=== PATIENT | male | born 1955 | race African-American/Black ===

== ENCOUNTER 2017-06-25 15:21 | Inpatient (IN) | payer MEDICAID ==
[~2017-06-25] VITALS: Ht 190.5 cm; Wt 107.6 kg
[~2017-06-25 15:21] MED LIST: ESCI5SOL PO; ETD300C PO; INSU100C SQ; PALI117D IM
--- OUTSIDE RECORDS SUMMARY | 2017-06-25 15:28 | XMS REPORT | Continuity of Care Document ---
Author Author [facility] Address Unknown Phone Unavailable Allergies Active Description Code Type Severity Reaction Onset Reported/Identified Relationship to Patient Clinical Status Yes Neurontin Drug Allergy 06/12/2011 Yes Neurontin Drug Allergy N/A N/A 06/12/2011 Medications Problems Date Dx Coded Attending Type Code Diagnosis Diagnosed By 12/27/2009 ASHA VALLES MD NODX NO DIAGNOSIS 12/27/2009 NODX NO DIAGNOSIS 12/27/2009 NODX NO DIAGNOSIS 12/27/2009 NODX NO DIAGNOSIS 12/27/2009 NODX NO DIAGNOSIS 12/27/2009 ALEXIS DICKEY DDS NODX NO DIAGNOSIS 12/27/2009 NODX NO DIAGNOSIS 12/28/2009 ASHA VALLES MD 250.02 DIABETES MELLITUS POORLY CONTROLLED 12/28/2009 ASHA VALLES MD 278.00 OBESITY 12/28/2009 250.02 DIABETES MELLITUS POORLY CONTROLLED 12/28/2009 278.00 OBESITY 12/28/2009 250.02 DIABETES MELLITUS POORLY CONTROLLED 12/28/2009 278.00 OBESITY 12/28/2009 250.02 DIABETES MELLITUS POORLY CONTROLLED 12/28/2009 278.00 OBESITY 12/28/2009 250.02 DIABETES MELLITUS POORLY CONTROLLED 12/28/2009 278.00 OBESITY 12/28/2009 ALEXIS DICKEY DDS 250.02 DIABETES MELLITUS POORLY CONTROLLED 12/28/2009 ALEXIS DICKEY DDS 278.00 OBESITY 12/28/2009 250.02 DIABETES MELLITUS POORLY CONTROLLED 12/28/2009 278.00 OBESITY 02/23/2010 ASHA VALLES MD 295.60 P SCHIZO RESIDUAL UNSPECIFIED 02/23/2010 295.60 P SCHIZO RESIDUAL UNSPECIFIED 02/23/2010 295.60 P SCHIZO RESIDUAL UNSPECIFIED 02/23/2010 295.60 P SCHIZO RESIDUAL UNSPECIFIED 02/23/2010 295.60 P SCHIZO RESIDUAL UNSPECIFIED 02/23/2010 ALEXIS DICKEY DDS 295.60 P SCHIZO RESIDUAL UNSPECIFIED 02/23/2010 295.60 P SCHIZO RESIDUAL UNSPECIFIED 05/12/2011 ASHA VALLES MD 357.2 POLYNEUROPATHY IN DIABETES 05/12/2011 357.2 POLYNEUROPATHY IN DIABETES 05/12/2011 357.2 POLYNEUROPATHY IN DIABETES 05/12/2011 357.2 POLYNEUROPATHY IN DIABETES 05/12/2011 357.2 POLYNEUROPATHY IN DIABETES 05/12/2011 ALEXIS DICKEY DDS 357.2 POLYNEUROPATHY IN DIABETES 05/12/2011 357.2 POLYNEUROPATHY IN DIABETES 06/12/2011 ASHA VALLES MD 716.90 UNSPECIFIED ARTHROPATHY SITE UNSPECIFIED 06/12/2011 716.90 UNSPECIFIED ARTHROPATHY SITE UNSPECIFIED 06/12/2011 716.90 UNSPECIFIED ARTHROPATHY SITE UNSPECIFIED 06/12/2011 716.90 UNSPECIFIED ARTHROPATHY SITE UNSPECIFIED 06/12/2011 716.90 UNSPECIFIED ARTHROPATHY SITE UNSPECIFIED 06/12/2011 ALEXIS DICKEY DDS 716.90 UNSPECIFIED ARTHROPATHY SITE UNSPECIFIED 06/12/2011 716.90 UNSPECIFIED ARTHROPATHY SITE UNSPECIFIED 04/01/2012 ASHA VALLES MD 726.10 DISORDERS OF BURSAE AND TENDONS IN SHOULDER REGION UNSPECIFIED 04/01/2012 726.10 DISORDERS OF BURSAE AND TENDONS IN SHOULDER REGION UNSPECIFIED 04/01/2012 726.10 DISORDERS OF BURSAE AND TENDONS IN SHOULDER REGION UNSPECIFIED 04/01/2012 726.10 DISORDERS OF BURSAE AND TENDONS IN SHOULDER REGION UNSPECIFIED 04/01/2012 726.10 DISORDERS OF BURSAE AND TENDONS IN SHOULDER REGION UNSPECIFIED 04/01/2012 ALEXIS DICKEY DDS 726.10 DISORDERS OF BURSAE AND TENDONS IN SHOULDER REGION UNSPECIFIED 04/01/2012 726.10 DISORDERS OF BURSAE AND TENDONS IN SHOULDER REGION UNSPECIFIED 10/21/2012 ASHA VALLES MD 250.00 DIABETES II CONTROLLED (UNCOMPLICATED) 10/21/2012 ASHA VALLES MD 295.10 P SCHIZO DISORG UNSPECIFIED 10/21/2012 ASHA VALLES MD 300.00 MN MEN DIS NOS 10/21/2012 ASHA VALLES MD 366.10 cataracts unspecified, right, left or both 10/21/2012 ASHA VALLES MD 729.5 PAIN IN LIMB 10/21/2012 250.00 DIABETES II CONTROLLED (UNCOMPLICATED) 10/21/2012 295.10 P SCHIZO DISORG UNSPECIFIED 10/21/2012 300.00 MN MEN DIS NOS 10/21/2012 366.10 cataracts unspecified, right, left or both 10/21/2012 729.5 PAIN IN LIMB 10/21/2012 250.00 DIABETES II CONTROLLED (UNCOMPLICATED) 10/21/2012 295.10 P SCHIZO DISORG UNSPECIFIED 10/21/2012 300.00 MN MEN DIS NOS 10/21/2012 366.10 cataracts unspecified, right, left or both 10/21/2012 729.5 PAIN IN LIMB 10/21/2012 250.00 DIABETES II CONTROLLED (UNCOMPLICATED) 10/21/2012 295.10 P SCHIZO DISORG UNSPECIFIED 10/21/2012 300.00 MN MEN DIS NOS 10/21/2012 366.10 cataracts unspecified, right, left or both 10/21/2012 729.5 PAIN IN LIMB 10/21/2012 250.00 DIABETES II CONTROLLED (UNCOMPLICATED) 10/21/2012 295.10 P SCHIZO DISORG UNSPECIFIED 10/21/2012 300.00 MN MEN DIS NOS 10/21/2012 366.10 cataracts unspecified, right, left or both 10/21/2012 729.5 PAIN IN LIMB 10/21/2012 WHITE DDS, ALEXIS J 250.00 DIABETES II CONTROLLED (UNCOMPLICATED) 10/21/2012 WHITE DDS, ALEXIS J 295.10 P SCHIZO DISORG UNSPECIFIED 10/21/2012 WHITE DDS, ALEXIS J 300.00 MN MEN DIS NOS 10/21/2012 WHITE DDS, ALEXIS J 366.10 cataracts unspecified, right, left or both 10/21/2012 WHITE DDS, ALEXIS J 729.5 PAIN IN LIMB 12/07/2012 V67.9 UNSPECIFIED FOLLOW-UP EXAMINATION 12/07/2012 V67.9 UNSPECIFIED FOLLOW-UP EXAMINATION 12/07/2012 V67.9 UNSPECIFIED FOLLOW-UP EXAMINATION 12/07/2012 WHITE DDS, ALEXIS J V67.9 UNSPECIFIED FOLLOW-UP EXAMINATION 05/24/2013 272.4 OTHER AND UNSPECIFIED HYPERLIPIDEMIA 05/24/2013 V58.69 LONG-TERM (CURRENT) USE OF OTHER MEDICATIONS 05/24/2013 WHITE DDS, ALEXIS J 272.4 OTHER AND UNSPECIFIED HYPERLIPIDEMIA 05/24/2013 ALEXIS DICKEY DDS V58.69 LONG-TERM (CURRENT) USE OF OTHER MEDICATIONS Procedures Code Description [place] [address] A1C (IN-HOUSE) 51862 MICRO ALBUMIN-IN HOUSE 08/23/2012 ArieDarin Fernandez 10/22/2012 86571 ROUTINE VENIPUNCTURE 11/22/2012 61622 MICRO ALBUMIN-IN HOUSE 11/22/2012 14430 A1C (IN-HOUSE) 12836 CBC 11/22/2012 09661 CMP 11/22/2012 75463 LIPID PANEL 11/22 [id number] GFR CALC (RESULT ONLY) 11/22/2012 19154 PSA TOTAL 2012 74338 GLUCOSE FINGER STICK 02/17/2013 25157 A1C (IN-HOUSE) 88058 CMP 05/24/2013 [id number] GFR CALC (RESULT ONLY) 05/24/2013 86788 TSH 05/24/2013 Results Encounters ACCT No. Visit Date/Time Discharge Status Pt. Type Provider Facility Loc./Unit Complaint [id number] 06/29/2013 11:50:00 06/29/2013 23: 59:59 CLS Outpatient ALEXIS DICKEY DDS [id number] 12/07/2012 08:59:00 12/07/2012 23: 59:59 CLS Outpatient [id number] 11/22/2012 10:05:00 11/22/2012 23: 59:59 CLS Outpatient [id number] 10/21/2012 09:29:00 10/21/2012 23: 59:59 CLS Outpatient REENA PINEDO, ASHA [id number] 08/23/2012 09:22:00 08/23/2012 23: 59:59 CLS Outpatient [id number] 05/24/2013 11:00:00 Document Registration [id number] 02/17/2013 10:52:00 Document Registration
[2017-06-25 17:05] LABS: BASOPHILS % (AUTO) 0 % (0-10); EOSINOPHILS % (AUTO) 0 % (0-10); LYMPHOCYTES # (AUTO) 1.4 X 10^3 (1.0-4.0); LYMPHOCYTES % (AUTO) 10 % (12-44); MEAN CORPUSCULAR HEMOGLOBIN 29 PG (25-34); MEAN CORPUSCULAR HGB CONC 34 G/DL (32-36); MEAN CORPUSCULAR VOLUME 85 FL (80-99); MEAN PLATELET VOLUME 10.2 FL (7.4-10.4); MONOCYTES % (AUTO) 7 % (0-12); NEUTROPHILS # (AUTO) 11.2 X 10^3 (1.8-7.8); NEUTROPHILS % (AUTO) 83 % (42-75); PLATELET COUNT 180 10^3/uL (130-400); RED BLOOD COUNT 5.07 10^6/uL (4.35-5.85); RED CELL DISTRIBUTION WIDTH 13.3 % (10.0-14.5); WHITE BLOOD COUNT 13.6 10^3/uL (4.3-11.0)
[2017-06-25 17:14] LABS: INR 1.1 (0.8-1.4); PROTHROMBIN TIME PATIENT 14.1 SEC (12.2-14.7)
[2017-06-25 17:26] LABS: ALANINE AMINOTRANSFERASE 8 U/L (0-55); ALBUMIN 3.9 GM/DL (3.2-4.5); ALCOHOL < 10 MG/DL (<10); AMYLASE 46 U/L (25-125); ANION GAP 13 MMOL/L (5-14); ASPARTATE AMINO TRANSFERASE 16 U/L (5-34); BLOOD UREA NITROGEN 11 MG/DL (7-18); BUN/CREATININE RATIO 13; CARBON DIOXIDE 24 MMOL/L (21-32); CHLORIDE 95 MMOL/L (98-107); CREATININE SERUM 0.82 MG/DL (0.60-1.30); GFR ESTIMATED > 60; GLUCOSE 171 MG/DL (70-105); LIPASE 11 U/L (8-78); MAGNESIUM 1.5 MG/DL (1.8-2.4); POTASSIUM 3.1 MMOL/L (3.6-5.0); SODIUM 132 MMOL/L (135-145); TOTAL PROTEIN 8.3 GM/DL (6.4-8.2)
[2017-06-25 17:28] LABS: BILIRUBIN,URINE NEGATIVE (NEGATIVE); KETONES,URINE NEGATIVE (NEGATIVE); LEUKOCYTE ESTERASE ,URINE NEGATIVE (NEGATIVE); NITRITE,URINE NEGATIVE (NEGATIVE); PH,URINE 6.5 (5-9); PROTEIN,URINE 3+ (NEGATIVE); UROBILINOGEN,URINE 1 MG/DL (NORMAL)
--- NOTE | 2017-06-25 17:31 | Diagnostic Imaging Report ---
PROCEDURE: CT head without contrast. TECHNIQUE: Multiple contiguous axial images were obtained through the brain without the use of intravenous contrast. INDICATION: Confusion. Patient is unable to follow instructions. FINDINGS: There is moderate motion artifact. Study was repeated. The ventricles and cortical gyral pattern appear normal. There is no evidence of intracranial hemorrhage. No shift of midline or mass effect. Basal cisterns are clear. CP angles appear normal. Mastoid air cells and paranasal sinuses show fluid within the left mastoid air cells as well as within the left maxillary sinus which is opacified and a portion of the left ethmoid sinus. Right mastoid air cells and right maxillary sinus and ethmoid sinus are clear. Frontal sinuses are clear. IMPRESSION: 1. No acute intracranial abnormalities. 2. There is fluid within the left mastoid air cells and left middle ear as well as opacification of the left maxillary sinus and left ethmoid sinus. Dictated by: Dictated on workstation # [id number]
[2017-06-25 17:40] LABS: WBC,URINE 0-2 /HPF
--- NOTE | 2017-06-25 17:49 | Diagnostic Imaging Report ---
INDICATION: Dizziness. Shortness of breath. FINDINGS: There is mild hyperaeration with flattening of diaphragm. Prominent interstitial markings noted bilaterally. There are no consolidated infiltrates. The heart is not enlarged. No evidence of pulmonary edema. No pneumothorax or pleural effusions. IMPRESSION: Mild obstructive interstitial lung disease with no acute changes noted. No previous studies for comparison. Dictated by: Dictated on workstation # [id number]
[2017-06-25] MEDS ORDERED: IOHEXOL 350 MG/ML 150 ML (OMNIPAQUE 350) VIAL IV ONE (18:00)
[2017-06-25] MEDS ORDERED: NS 100 ML (IVPB) BAG IV ONE (18:00)
[2017-06-25] MEDS ORDERED: NS IV 1000 ML 1,000 ML IV ONE (18:24)
[2017-06-25] MEDS ORDERED: NS W/KCL 20 MEQ/L 1,000 ML IV SCH (18:30)
[2017-06-25] MEDS ORDERED: MAGNESIUM OXIDE (MAG-OX)400 MG TAB PO ONE (18:30)
[2017-06-25] MEDS ORDERED: KCL 10 MEQ TAB (MICRO K) PO ONE (18:30)
[2017-06-25] MEDS ORDERED: MAGNESIUM 1 GM/100 ML IVPB 100 ML IV ONE (18:30)
[2017-06-25] MEDS ORDERED: ACETAMINOPHEN 500 MG TAB (TYLENOL) PO ONE (18:30)
[2017-06-25] MEDS ORDERED: diphenhydrAMINE 50 MG/ML INJ (BENADRYL) IVP ONE (19:30)
--- NOTE | 2017-06-25 19:41 | ED General ---
General Chief Complaint: Dizziness/Syncope Stated Complaint: HEADACHE,BILAT LEG PAIN Nursing Triage Note: AMB TO ED WITH FAMILY REPORT FOR 2 MONTHS HE HAS BEEN DIZZY AND CONCERN THAT HE HAS BAD TEETH. HAS APPOINTMENT WITH [facility] ON JUL 02 Nursing Sepsis Screen: Possible Sepsis Risk Source of Information: Patient (VERY POOR HISTORIAN AND UNABLE TO GIVE ANY RELEVANT PAST MEDICAL HISTORY, AND VERY POOR HISTORIAN ABOUT CURRENT COMPLAINTS) , Family ([id number]-FBH AND NIECE ARE VERY LIMITED HISTORIANS, AND CAN GIVE NO RELEVANT INFORMATION OR HISTORY ), Old Records (ALL PMH IS FROM OLD RECORDS) History of Present Illness Time Seen by Provider: 16:25 Initial Comments PT ARRIVES VIA POV FROM HOME--LIVES WITH MULTIPLE FAMILY MEMBERS PT C/O BACK PAIN AND LOWER ABDOMINAL PAIN--?? FOR SEVERAL WEEKS ??? C/O DIZZINESS AND HEADACHE--?? FOR A COUPLE OF MONTHS ?? DENIES ANY PROBLEMS URINATING. NO OTHER INFORMATION IS OBTAINABLE PT HAS TEMP OF 101.6 AND PT AND CARETAKERS UNAWARE THAT PT HAD BEEN RUNNING FEVER STATES HE HAS NOT HAD ANY NAUSEA/VOMITING/DIARRHEA AND HAS BEEN EATING AND DRINKING WELL SYMPTOMS ARE NO DIFFERENT TODAY AND HAVE NOT SOUGHT CARE FOR THIS PROBLEM UNTIL TODAY PT AND FAMILY CANNOT GIVE ANY PAST MEDICAL HISTORY--CAN ONLY STATE HE GETS SOME SORT OF SHOT EVERY 3 MONTHS AT [facility], AND HAVE NO IDEA WHAT "MENTAL HEALTH PROBLEMS" HE HAS, OR EVEN WHAT MENTAL HEALTH FACILITY THAT HE GOES TO THEY STATE PT DOES NOT TAKE ANY OTHER MEDICATIONS THEY DO STATE PT HAS AN APPOINTMENT AT [facility] 07/02/17 Allergies and Home Medications Allergies Coded Allergies: No Known Drug Allergies (Unverified , 02/07/11) Home Medications Escitalopram Oxalate 5 Mg/5 Ml Solution, 1 TSP PO DAILY, (Reported) Etodolac 300 Mg Capsule, 1 CAP PO BID, #20 Ref 0 Prescribed by: SATYA DANIELS on 02/07/11 1417 Insulin Lispro 100 Unit/1 Ml Cartridge, 100 UNIT SQ UD, (Reported) Paliperidone Palmitate 117 Mg/0.75 Ml Disp.syrin, 117 MG IM monthly, (Reported) Constitutional: see HPI, dizziness, fever EENTM: other (DRAINAGE FROM LEFT EAR FOR MANY MONTHS) Respiratory: cough, No short of breath Gastrointestinal: see HPI, abdominal pain Genitourinary: no symptoms reported Musculoskeletal: see HPI, back pain Past Vzngcln-Qzqfll-Ehpbmr Hx Patient Social History Alcohol Use: Denies Use Recreational Drug Use: Yes (PER NIECE, PT HAS EXTENSIVE DRUG USE HISTORY, INCLUDING HEROIN AND "ICE"-LIKELY IV DRUG USE) Smoking Status: Current Everyday Smoker (1 /2 PPD) Type Used: Cigarettes Recent Foreign Travel: No Contact w/Someone Who Travel: No Recent Infectious Disease Expo: No Surgeries History of Surgeries: No (UNKNOWN) Respiratory History of Respiratory Disorde: No Cardiovascular History of Cardiac Disorders: No Neurological History of Neurological Disord: Yes (? MENTALLY CHALLENGED ?--FROM DRUG USE AND OR/INJURY PER FAMILY) Genitourinary History of Genitourinary Disor: No Gastrointestinal History of Gastrointestinal Di: No Musculoskeletal History of Musculoskeletal Dis: No Endocrine History of Endocrine Disorders: Yes (PER SINGLE OLD RECORD FROM 2010, PT AND FAMILY UNAWARE OF THIS AND PT DOES NOT CHECK BLOOD SUGAR, FOLLOW A DIET OR TAKE DIABETIC MEDICATION) Endocrine Disorders: Diabetes, Non-Insulin dep HEENT History of HEENT Disorders: Yes HEENT Disorders: Chronic Ear Infection Cancer History of Cancer: No Psychosocial History of Psychiatric Problem: Yes (UNKNOWN "MENTAL HEALTH PROBLEM"; ? MENTALLY CHALLENGED ?--FROM DRUG USE AND/OR INJURY, PER FAMILY. ) Integumentary History of Skin or Integumenta: No Blood Transfusions History of Blood Disorders: No Physical Exam Vital Signs Vital Sign - Last 12Hours 06/25/17 16:00 Temp 101.6 Pulse 105 Resp 18 B/P (MAP) 138/68 Pulse Ox 92 O2 Delivery Room Air Capillary Refill : Less Than 3 Seconds General Appearance: No Apparent Distress, WD/WN, Other (MALODOROUS, UNKEMPT. APPEARS TO BE MENTALLY CHALLENGED. CONSTANT TONGUE MOVEMENTS. AND CONSTANT BODY MOVEMENTS--RESTLESS, CANNOT SIT OR LAY STILL) HEENT: PERRL/EOMI, Other (MULTIPLE MISSING TEETH AND REMAINING TEETH WITH EXTENSIVE DECAY. RIGHT TM SCLEROTIC, LEFT EAC WITH PROFUSE PURULENT DRAINAGE-- UNABLE TO VISUALIZE TM DUE TO DRAINAGE. MILD POST-AURICULAR TENDERNSS, BUT NO SWELLING OR OBVIOUS ERYTHEMA TO AREA, OR TO PINNA OF EAR. MILD TENDERNESS ON TRACTION OF LEFT PINNA. ) Neck: Full Range of Motion, Normal Inspection, Non Tender, Supple Respiratory: Normal Breath Sounds, No Accessory Muscle Use, No Respiratory Distress Cardiovascular: Regular Rate, Rhythm, No Edema, No JVD, No Murmur, Normal Peripheral Pulses Gastrointestinal: Normal Bowel Sounds, No Organomegaly, No Pulsatile Mass, Soft , Tenderness (MILD DIFFUSE LOWER ABDOMINAL TENDERNESS) Back: CVA Tenderness (L) (MILD), CVA Tenderness (R) (MILD) Extremity: Normal Range of Motion Neurologic/Psychiatric: Alert, No Motor/Sensory Deficits, acquisition manager II-XII Norm as Tested, Other (FLAT AFFECT. APPEARS TO BE MENTALLY CHALLENGED, ORIENTED TO PERSON AND KNOWS HE IS IN HOSPITAL, BUT CONFUSED TO TIME AND SITUATION--NORMAL BASELINE PER CARETAKERS. ) Skin: Normal Color, Warm/Dry Focused Exam Evaluation Lactate Level Laboratory Tests 06/25/17 18:40: Lactic Acid Level 1.11 Lactic Acid Level Laboratory Tests Test 06/25/17 18:40 Lactic Acid Level 1.11 MMOL/L (0.50-2.00) Progress/Results/Core Measures Results/Orders Lab Results Laboratory Tests Test 06/25/17 16:57 06/25/17 17:09 06/25/17 18:40 Range/Units White Blood Count 13.6 H 4.3-11.0 10^3/uL Red Blood Count 5.07 4.35-5.85 10^6/uL Hemoglobin 14.8 13.3-17.7 G/DL Hematocrit 43 40-54 % Mean Corpuscular Volume 85 80-99 FL Mean Corpuscular Hemoglobin 29 25-34 PG Mean Corpuscular Hemoglobin Concent 34 32-36 G/DL Red Cell Distribution Width 13.3 10.0-14.5 % Platelet Count 180 130-400 10^3/uL Mean Platelet Volume 10.2 7.4-10.4 FL Neutrophils (%) (Auto) 83 H 42-75 % Lymphocytes (%) (Auto) 10 L 12-44 % Monocytes (%) (Auto) 7 0-12 % Eosinophils (%) (Auto) 0 0-10 % Basophils (%) (Auto) 0 0-10 % Neutrophils # (Auto) 11.2 H 1.8-7.8 X 10^3 Lymphocytes # (Auto) 1.4 1.0-4.0 X 10^3 Monocytes # (Auto) 1.0 0.0-1.0 X 10^3 Eosinophils # (Auto) 0.0 0.0-0.3 10^3/uL Basophils # (Auto) 0.0 0.0-0.1 10^3/uL Prothrombin Time 14.1 12.2-14.7 SEC INR Comment 1.1 0.8-1.4 Activated Partial Thromboplast Time 31 24-35 SEC Sodium Level 132 L 135-145 MMOL/L Potassium Level 3.1 L 3.6-5.0 MMOL/L Chloride Level 95 L 98-107 MMOL/L Carbon Dioxide Level 24 21-32 MMOL/L Anion Gap 13 5-14 MMOL/L Blood Urea Nitrogen 11 7-18 MG/DL Creatinine 0.82 0.60-1.30 MG/DL Estimat Glomerular Filtration Rate > 60 BUN/Creatinine Ratio 13 Glucose Level 171 H 70-105 MG/DL Calcium Level 9.0 8.5-10.1 MG/DL Magnesium Level 1.5 L 1.8-2.4 MG/DL Total Bilirubin 1.0 0.1-1.0 MG/DL Aspartate Amino Transf (AST/SGOT) 16 5-34 U/L Alanine Aminotransferase (ALT/SGPT) 8 0-55 U/L Alkaline Phosphatase 63 40-136 U/L Total Protein 8.3 H 6.4-8.2 GM/DL Albumin 3.9 3.2-4.5 GM/DL Amylase Level 46 25-125 U/L Lipase 11 8-78 U/L Serum Alcohol < 10 <10 MG/DL Urine Color YELLOW Urine Clarity CLEAR Urine pH 6.5 5-9 Urine Specific [place] 1.015 L 1.016-1.022 Urine Protein 3+ H NEGATIVE Urine Glucose (UA) 2+ H NEGATIVE Urine Ketones NEGATIVE NEGATIVE Urine Nitrite NEGATIVE NEGATIVE Urine Bilirubin NEGATIVE NEGATIVE Urine Urobilinogen 1 NORMAL MG/DL Urine Leukocyte Esterase NEGATIVE NEGATIVE Urine RBC (Auto) 4+ H NEGATIVE Urine RBC 10-25 H /HPF Urine WBC 0-2 /HPF Urine Crystals NONE /LPF Urine Bacteria NEGATIVE /HPF Urine Casts NONE /LPF Urine Mucus MODERATE H /LPF Urine Culture Indicated NO Urine Opiates Screen NEGATIVE NEGATIVE Urine Oxycodone Screen NEGATIVE NEGATIVE Urine Methadone Screen NEGATIVE NEGATIVE Urine Propoxyphene Screen NEGATIVE NEGATIVE Urine Barbiturates Screen NEGATIVE NEGATIVE Ur Tricyclic Antidepressants Screen NEGATIVE NEGATIVE Urine Phencyclidine Screen NEGATIVE NEGATIVE Urine Amphetamines Screen NEGATIVE NEGATIVE Urine Methamphetamines Screen NEGATIVE NEGATIVE Urine Benzodiazepines Screen NEGATIVE NEGATIVE Urine Cocaine Screen NEGATIVE NEGATIVE Urine Cannabinoids Screen NEGATIVE NEGATIVE Lactic Acid Level 1.11 0.50-2.00 MMOL/L My Orders Orders - RHYS SIMMONS DO Saline Lock/Iv-Start (06/25/17 16:37) Ekg Tracing (06/25/17 16:37) Monitor-Rhythm Ecg Trace Only (06/25/17 16:37) Ct Head Wo (06/25/17 16:37) Alcohol (06/25/17 16:37) Amylase (06/25/17 16:37) Cbc With Automated Diff (06/25/17 16:37) Comprehensive Metabolic Panel (06/25/17 16:37) Lipase (06/25/17 16:37) Magnesium (06/25/17 16:37) Protime With Inr (06/25/17 16:37) Partial Thromboplastin Time (06/25/17 16:37) Ua Culture If Indicated (06/25/17 16:37) Chest Pa/Lat (2 View) (06/25/17 17:03) Lactic Acid Analyzer (06/25/17 17:03) Blood Culture (06/25/17 17:03) Drug Screen Stat (Urine) (06/25/17 17:24) Ct Otilia Chest/Noang Abd-Pelv W (06/25/17 17:34) Iohexol Injection (Omnipaque 350 Mg/Ml 1 (06/25/17 18:00) Ns (Ivpb) (Sodium Chloride 0.9% Ivpb Bag (06/25/17 18:00) Pharmacy Communication (Pharmacy Communi (06/25/17 17:52) Acetaminophen Tablet (Tylenol Tablet) (06/25/17 18:30) Ns W/Kcl 20 Meq/L (Ns Iv W/Kcl 20 Meq/L) (06/25/17 18:30) Magnesium Oxide Tablet (Mag Ox Tablet) (06/25/17 18:30) Magnesium 1 Gm/100 Ml Ivpb (Magnesium Faye (06/25/17 18:30) Saline Lock/Iv-Start (06/25/17 18:24) Ns Iv 1000 Ml (Sodium Chloride 0.9%) (06/25/17 18:24) Potassium Chloride (Tablet) (Klor Con Ta (06/25/17 18:30) Diphenhydramine Injection (Benadryl Inje (06/25/17 19:30) Ear Culture (06/25/17 19:32) Ceftriaxone Injection (Rocephin Injectio (06/25/17 19:45) Medications Given in ED Current Medications Medications Dose Ordered Sig/Ernestina Route Start Time Stop Time Status Last Admin Dose Admin Acetaminophen 1,000 mg ONCE ONCE PO 06/25/17 18:30 06/25/17 18:31 DC 06/25/17 18:40 1,000 MG Ceftriaxone Sodium 2000 mg/ Sodium Chloride 50 ml @ 100 mls/hr ONCE ONCE IV 06/25/17 19:45 06/25/17 20:14 DC 06/25/17 20:38 100 MLS/HR Diphenhydramine HCl 50 mg ONCE ONCE IVP 06/25/17 19:30 06/25/17 19:31 DC 06/25/17 20:17 50 MG Iohexol 150 ml ONCE ONCE IV 06/25/17 18:00 06/25/17 18:01 DC 06/25/17 20:36 125 ML Magnesium Oxide 1,200 mg ONCE ONCE PO 06/25/17 18:30 06/25/17 18:53 DC 06/25/17 18:39 1,200 MG Magnesium Sulfate/ Dextrose 100 ml @ 100 mls/hr ONCE ONCE IV 06/25/17 18:30 06/25/17 19:29 DC 06/25/17 18:41 100 MLS/HR Potassium Chloride 20 meq ONCE ONCE PO 06/25/17 18:30 06/25/17 18:54 DC 06/25/17 18:42 20 MEQ Sodium Chloride 100 ml ONCE ONCE IV 06/25/17 18:00 06/25/17 18:01 DC 06/25/17 20:36 80 ML Vital Signs/I&O Vital Sign - Last 12Hours 06/25/17 16:00 Temp 101.6 Pulse 105 Resp 18 B/P (MAP) 138/68 Pulse Ox 92 O2 Delivery Room Air Blood Pressure Mean: 91 Progress Note : Progress Note GAVE DOSE OF BENADRYL FOR MILD SEDATION FOR CT SCAN, PT RESTED QUIETLY FOR REMAINDER OF ER STAY VITALS REMAINED STABLE AND TEMP DOWN AT TIME OF ADMIT. ECG Initial ECG Impression Time: 17:26 Initial ECG Rate: 93 Initial ECG Rhythm: Normal Sinus Initial ECG Impression: Nonspecific Changes, 1st Degree AV Block Initial ECG Comparisson: No Previous ECG Available Diagnostic Imaging Comments CXR--NO ACUTE PROCESS CT HEAD--FLUID IN LEFT MASTOID, LEFT MIDDLE EAR, OPACIFIED LEFT MAXILLARY AND ETHMOID SINUSES PER RADIOLOGIST REPORTS @ 1734 Reviewed: Reviewed by Me Departure Communication (Admissions) Progress Notes 2044--SPOKE WITH DR. MELCHOR, DOOR LINER FOR [facility]. ACCEPTS PT FOR ADMIT, AND WILL HAVE ENT CONSULTED IN AM. Impression Impression: Primary Impression: Mastoiditis of left side Additional Impressions: Sinusitis Hyperglycemia Hypomagnesemia Hypokalemia MILD HYPONATREMIA Disposition: ADMITTED INPATIENT Condition: Stable Admissions Decision to Admit Reason: Admit from ER (General) Decision to Admit/Date: Jun 25, 2017 Time/Decision to Admit Time: 20:50 Departure-Patient Inst. Referrals: [facility] (PCP/Family) Primary Care Physician RHYS SIMMONS DO Jun 25, 2017 19:41
[2017-06-25] MEDS ORDERED: cefTRIAXone INJECTION 2,000 MG in NS (IVPB) 50 ML IV ONE (19:45)
--- NOTE | 2017-06-25 21:07 | Diagnostic Imaging Report ---
EXAM: CT chest, abdomen, and pelvis with intravenous contrast. TECHNIQUE: Axial postcontrast CT images of the chest, abdomen, and pelvis were obtained. MIP reformats at the level of the chest were obtained. Coronal reformats of the abdomen and pelvis were provided. DATE: June 25, 2017. COMPARISON: Chest radiographs June 25, 2017. INDICATION: 62-year-old male, dizziness. No additional history provided. FINDINGS: There is very prominent respiratory motion artifact. There are upper lobe predominant changes of emphysema. There is mild dependent atelectasis in the lung bases. There is no additional identified focal airspace consolidation. There is no pneumothorax. There is no pleural effusion. There is no identified central or segmental pulmonary embolus. There is limitation for evaluation of subsegmental pulmonary embolus given the degree of respiratory motion artifact. The main pulmonary artery is not abnormally dilated. The heart is not enlarged. There is no pericardial effusion. There is no identified abnormally enlarged mediastinal, hilar, or axillary lymph node which meets CT size criteria for adenopathy. The liver is unremarkable in size and contour. There is a questionable low-attenuation lesion in the left lobe of the liver on axial image 19 which measures 1.2 cm in size. This is not able to be characterized and potentially could be artifactual. The main, right, and left portal veins are patent. The gallbladder is unremarkable. There is no intrahepatic or extrahepatic bile duct dilation. The main pancreatic duct is not abnormally dilated. Unremarkable appearance of the pancreatic parenchyma. The spleen is not enlarged. There is nonspecific thickening of the left adrenal gland. Unremarkable appearance of the renal parenchyma. Urinary collecting systems are not distended. There is no identified renal or ureteral stone. The cecum does have some mass effect on the urinary bladder which is otherwise unremarkable in appearance. There is a moderate to large volume stool throughout the colon. There is a large amount of stool in the cecum with mild distention of the cecum. The cecum does exert some mass effect on the urinary bladder. There are no findings to suggest acute appendicitis. There is no free intraperitoneal air. There is no drainable fluid collection. There is no free pelvic fluid. There are atherosclerotic calcifications. There is no identified abnormally enlarged lymph node in the abdomen or pelvis which meets CT size criteria for adenopathy. There is no identified acute bony abnormality. There are degenerative changes of the lumbar spine. IMPRESSION: CT CHEST, ABDOMEN AND PELVIS. 1. Moderate to large volume colonic stool. 2. No identified acute abnormality at the level of the chest, abdomen, or pelvis. 3. Significant motion limitations of the exam. Dictated by: Dictated on workstation # [id number]
--- OUTSIDE RECORDS SUMMARY | 2017-06-25 21:14 | XMS REPORT | Continuity of Care Document ---
Author Author [facility] Address Unknown Phone Unavailable Allergies Active Description [...] Procedures Code Description [place] [address] A1C (IN-HOUSE) 25674 MICRO ALBUMIN-IN HOUSE 08/23/2012 ArieDarin Fernandez 10/22/2012 09967 ROUTINE VENIPUNCTURE 11/22/2012 64519 MICRO ALBUMIN-IN HOUSE 11/22/2012 06072 A1C (IN-HOUSE) 94865 CBC 11/22/2012 91774 CMP 11/22/2012 29811 LIPID PANEL 11/22 [id number] GFR CALC (RESULT ONLY) 11/22/2012 60930 PSA TOTAL 2012 72545 GLUCOSE FINGER STICK 02/17/2013 69532 A1C (IN-HOUSE) 80640 CMP 05/24/2013 [id number] GFR CALC (RESULT ONLY) 05/24/2013 56857 TSH 05/24/2013 Results Encounters ACCT No. Visit Date/Time Discharge Status Pt. Type Provider Facility Loc./Unit Complaint [id number] 06/29/2013 11:50:00 06/29/2013 23: 59:59 CLS Outpatient ALEXIS DICKEY DDS [id number] 12/07/2012 08:59:00 12/07/2012 23: 59:59 CLS Outpatient [id number] 11/22/2012 10:05:00 11/22/2012 23: 59:59 CLS Outpatient [id number] 10/21/2012 09:29:00 10/21/2012 23: 59:59 CLS Outpatient REENA PINEDO, ASHA [id number] 08/23/2012 09:22:00 08/23/2012 23: 59:59 CLS Outpatient [id number] 05/24/2013 11:00:00 Document Registration [id number] 02/17/2013 10:52:00 Document Registration
[2017-06-25 21:20] VITALS: BP 181/82
[2017-06-25] MEDS ORDERED: NICOTINE 21 MG (NICODERM) PATCH ONE (22:57)
[2017-06-25] MEDS: NICOTINE 21 MG (NICODERM) PATCH TD SCH (23:06)
[2017-06-26 00:24] VITALS: BP 197/82
[2017-06-26 04:15] VITALS: BP 142/81
[2017-06-26] MEDS: ACETAMINOPHEN 500 MG TAB (TYLENOL) PO PRN ×2 (04:40→12:07)
[2017-06-26] MEDS: inSUlin (REGULAR) HUMAN 1 UNIT/0.01 ML (CHARGE PER UNIT) SC SCH ×4 (05:42→21:00)
[2017-06-26 06:24] LABS: BASOPHILS % (AUTO) 0 % (0-10); EOSINOPHILS % (AUTO) 0 % (0-10); LYMPHOCYTES # (AUTO) 1.8 X 10^3 (1.0-4.0); LYMPHOCYTES % (AUTO) 12 % (12-44); MEAN CORPUSCULAR HEMOGLOBIN 29 PG (25-34); MEAN CORPUSCULAR HGB CONC 34 G/DL (32-36); MEAN CORPUSCULAR VOLUME 85 FL (80-99); MEAN PLATELET VOLUME 11.1 FL (7.4-10.4); MONOCYTES # (AUTO) 1.3 X 10^3 (0.0-1.0); MONOCYTES % (AUTO) 9 % (0-12); NEUTROPHILS # (AUTO) 11.9 X 10^3 (1.8-7.8); NEUTROPHILS % (AUTO) 79 % (42-75); PLATELET COUNT 187 10^3/uL (130-400); RED BLOOD COUNT 5.07 10^6/uL (4.35-5.85); RED CELL DISTRIBUTION WIDTH 13.4 % (10.0-14.5)
[2017-06-26 06:46] LABS: BAND NEUTROPHILS 1 %; LYMPHOCYTES % (MANUAL) 13 %; NEUTROPHILS % (MANUAL) 80 %
[2017-06-26 06:47] LABS: ATYPICAL LYMPHOCYTES 2 %; BASOPHILS % (MANUAL) 0 %; EOSINOPHILS % (MANUAL) 0 %
[2017-06-26] MEDS ORDERED: CATHETER FLUSH 10 ML SYR IV PRN (07:00)
[2017-06-26] MEDS ORDERED: INFLUENZA TRIvalent 2017-2018 0.5 ML/45 MCG SYR IM ONE (07:00)
[2017-06-26 07:43] LABS: ALANINE AMINOTRANSFERASE 10 U/L (0-55); ALBUMIN 3.8 GM/DL (3.2-4.5); ANION GAP 13 MMOL/L (5-14); ASPARTATE AMINO TRANSFERASE 29 U/L (5-34); BILIRUBIN,TOTAL 0.8 MG/DL (0.1-1.0); BLOOD UREA NITROGEN 12 MG/DL (7-18); BUN/CREATININE RATIO 15; CALCIUM 8.7 MG/DL (8.5-10.1); CARBON DIOXIDE 23 MMOL/L (21-32); CHLORIDE 93 MMOL/L (98-107); GFR ESTIMATED > 60; GLUCOSE 143 MG/DL (70-105); MAGNESIUM 1.8 MG/DL (1.8-2.4); POTASSIUM 3.1 MMOL/L (3.6-5.0); SODIUM 129 MMOL/L (135-145); TOTAL PROTEIN 8.2 GM/DL (6.4-8.2)
[2017-06-26 08:24] VITALS: BP 156/74
--- NOTE | 2017-06-26 08:45 | Progress Note-Standard ---
Standard Progress Note Progress Notes/Assess & Plan Date Seen by Provider: Jun 26, 2017 Time Seen by Provider: 09:00 Progress/Assessment & Plan ENT-David Arambula seen and evaluated Patient has draining left ear-brither states it has been a detention issue x-ray shows a scleoritc fluid filled middle ear and mastoid on left side also shows left sinusitis most likely secondary to poor dentitiion exam Left Ear-mucoid driqnage in canal-canal not swollen no swelling or tnedeness of mastoid aerobic and anaerobic cultures taken from the left side and sent to the lab started on cipro opth soln 3drops bid to left ear ceftiraxone fine until we get culture results back may want to add cleocin 600mg iv tid to cover dental related sinusitis as well- will leave that up to primary care will follow while i nthe hosptial and check culture when available HAMZAH PANTOJA MD Jun 26, 2017 8:45 am
[2017-06-26] MEDS: NICOTINE 21 MG (NICODERM) PATCH TD SCH (08:50)
[2017-06-26] MEDS ORDERED: PALI546S IM (09:03)
[2017-06-26] MEDS ORDERED: LORA10TA7 PO (09:03)
[2017-06-26] MEDS ORDERED: IBUP-30 PO (09:03)
[2017-06-26] MEDS: CIPROFLOXACIN 0.3% (CILOXAN) 2.5 ML BTL LEFT EAR SCH ×2 (10:02→20:46)
--- NOTE | 2017-06-26 10:28 | Short Stay Summary ---
HPI History of Present Illness: Pt presented to ED last night with a variety of vague, chronic complaints including earache, headache, some dizziness. The patient was a fairly unreliable historian, and his family present also could not provide much additional information about the patient. The patient has not seen a physician in several years, other than he does get Invega shots every three months. His family present last night was unable to provide the name of the facility where he gets these injections. At the time of exam this morning, the patient is awake and reports that he is feeling much better. He reports that he has a history of Diabetes and used to be on metformin, but hasn't taken any in about two years. He reports that he gets his injections at a clinic on [facility]. He is able to tell us his name, date, age, address, and that he is in the hospital because he came into the ED last night and had drainage from his ear and a fever. He has a remote history of drug abuse, heroin and ice. Pt somewhat vague about any history of incarceration. He is a current smoker. He currently lives with his brother. Source: patient, family, old records Exam Limitations: other (pt is a somewhat poor historian) Date seen by provider: Jun 26, 2017 Time Seen by Provider: 10:00 Attending Physician Lexus Larsen DO PCP [facility] [place] Date of Admission Jun 25, 2017 at 21:09 Home Medications Home Medications Reviewed patient Home Medication Reconciliation Form Allergies Coded Allergies: No Known Drug Allergies (Unverified , 02/07/11) [id number] Hx Patient Social History Marrital Status: single Living Status: lives with brother Employed/Student: unemployed Alcohol Use: Denies Use Recreational Drug Use: Yes (PER NIECE, PT HAS EXTENSIVE DRUG USE HISTORY, INCLUDING HEROIN AND "ICE"-LIKELY IV DRUG USE) Smoking Status: Current Everyday Smoker (1 1/2 PPD) Type Used: Cigarettes Recent Foreign Travel: No Contact w/other who traveled: No Recent Hopitalizations: No Recent Infectious Disease Expo: No Physical Abuse Screen: No Sexual Abuse: No Immunizations Up To Date Tetanus Booster (TDap): More than 5yrs Past Medical History Schizophrenia IV Drug Abuse Diabetes Mellitus Type II Seasonal Allergies Tobacco Abuse Family Medical History Family History: Myocardial infarction 19 FATHER, Onset:Unknown Review of Systems (CHC) Constitutional: chills, dizziness, fever, malaise EENTM: ear discharge, ear pain, dental problems, nose congestion Respiratory: cough, No hemoptysis, No wheezing Cardiovascular: No chest pain, No edema, No syncope, No vascular heart diseas Gastrointestinal: abdominal pain, constipation, No nausea, No vomiting Genitourinary: no symptoms reported Musculoskeletal: back pain, joint pain Skin: no symptoms reported Psychiatric/Neurological: See HPI, Headache, Pre-Existing Deficit Reviewed Test Results Reviewed Test Results Lab Laboratory Tests Test 06/25/17 16:57 06/25/17 17:09 06/25/17 18:40 06/26/17 05:42 Range/Units White Blood Count 13.6 H 4.3-11.0 10^3/uL Red Blood Count 5.07 4.35-5.85 10^6/uL Hemoglobin 14.8 13.3-17.7 G/DL Hematocrit 43 40-54 % Mean Corpuscular Volume 85 80-99 FL Mean Corpuscular Hemoglobin 29 25-34 PG Mean Corpuscular Hemoglobin Concent 34 32-36 G/DL Red Cell Distribution Width 13.3 10.0-14.5 % Platelet Count 180 130-400 10^3/uL Mean Platelet Volume 10.2 7.4-10.4 FL Neutrophils (%) (Auto) 83 H 42-75 % Lymphocytes (%) (Auto) 10 L 12-44 % Monocytes (%) (Auto) 7 0-12 % Eosinophils (%) (Auto) 0 0-10 % Basophils (%) (Auto) 0 0-10 % Neutrophils # (Auto) 11.2 H 1.8-7.8 X 10^3 Lymphocytes # (Auto) 1.4 1.0-4.0 X 10^3 Monocytes # (Auto) 1.0 0.0-1.0 X 10^3 Eosinophils # (Auto) 0.0 0.0-0.3 10^3/uL Basophils # (Auto) 0.0 0.0-0.1 10^3/uL Prothrombin Time 14.1 12.2-14.7 SEC INR Comment 1.1 0.8-1.4 Activated Partial Thromboplast Time 31 24-35 SEC Sodium Level 132 L 135-145 MMOL/L Potassium Level 3.1 L 3.6-5.0 MMOL/L Chloride Level 95 L 98-107 MMOL/L Carbon Dioxide Level 24 21-32 MMOL/L Anion Gap 13 5-14 MMOL/L Blood Urea Nitrogen 11 7-18 MG/DL Creatinine 0.82 0.60-1.30 MG/DL Estimat Glomerular Filtration Rate > 60 BUN/Creatinine Ratio 13 Glucose Level 171 H 70-105 MG/DL Calcium Level 9.0 8.5-10.1 MG/DL Magnesium Level 1.5 L 1.8-2.4 MG/DL Total Bilirubin 1.0 0.1-1.0 MG/DL Aspartate Amino Transf (AST/SGOT) 16 5-34 U/L Alanine Aminotransferase (ALT/SGPT) 8 0-55 U/L Alkaline Phosphatase 63 40-136 U/L Total Protein 8.3 H 6.4-8.2 GM/DL Albumin 3.9 3.2-4.5 GM/DL Amylase Level 46 25-125 U/L Lipase 11 8-78 U/L Serum Alcohol < 10 <10 MG/DL Urine Color YELLOW Urine Clarity CLEAR Urine pH 6.5 5-9 Urine Specific [place] 1.015 L 1.016-1.022 Urine Protein 3+ H NEGATIVE Urine Glucose (UA) 2+ H NEGATIVE Urine Ketones NEGATIVE NEGATIVE Urine Nitrite NEGATIVE NEGATIVE Urine Bilirubin NEGATIVE NEGATIVE Urine Urobilinogen 1 NORMAL MG/DL Urine Leukocyte Esterase NEGATIVE NEGATIVE Urine RBC (Auto) 4+ H NEGATIVE Urine RBC 10-25 H /HPF Urine WBC 0-2 /HPF Urine Crystals NONE /LPF Urine Bacteria NEGATIVE /HPF Urine Casts NONE /LPF Urine Mucus MODERATE H /LPF Urine Culture Indicated NO Urine Opiates Screen NEGATIVE NEGATIVE Urine Oxycodone Screen NEGATIVE NEGATIVE Urine Methadone Screen NEGATIVE NEGATIVE Urine Propoxyphene Screen NEGATIVE NEGATIVE Urine Barbiturates Screen NEGATIVE NEGATIVE Ur Tricyclic Antidepressants Screen NEGATIVE NEGATIVE Urine Phencyclidine Screen NEGATIVE NEGATIVE Urine Amphetamines Screen NEGATIVE NEGATIVE Urine Methamphetamines Screen NEGATIVE NEGATIVE Urine Benzodiazepines Screen NEGATIVE NEGATIVE Urine Cocaine Screen NEGATIVE NEGATIVE Urine Cannabinoids Screen NEGATIVE NEGATIVE Lactic Acid Level 1.11 0.50-2.00 MMOL/L Glucometer 153 H 70-110 MG/DL Test 06/26/17 05:43 06/26/17 10:43 Range/Units White Blood Count 15.0 H 4.3-11.0 10^3/uL Red Blood Count 5.07 4.35-5.85 10^6/uL Hemoglobin 14.7 13.3-17.7 G/DL Hematocrit 43 40-54 % Mean Corpuscular Volume 85 80-99 FL Mean Corpuscular Hemoglobin 29 25-34 PG Mean Corpuscular Hemoglobin Concent 34 32-36 G/DL Red Cell Distribution Width 13.4 10.0-14.5 % Platelet Count 187 130-400 10^3/uL Mean Platelet Volume 11.1 H 7.4-10.4 FL Neutrophils (%) (Auto) 79 H 42-75 % Lymphocytes (%) (Auto) 12 12-44 % Monocytes (%) (Auto) 9 0-12 % Eosinophils (%) (Auto) 0 0-10 % Basophils (%) (Auto) 0 0-10 % Neutrophils # (Auto) 11.9 H 1.8-7.8 X 10^3 Lymphocytes # (Auto) 1.8 1.0-4.0 X 10^3 Monocytes # (Auto) 1.3 H 0.0-1.0 X 10^3 Eosinophils # (Auto) 0.0 0.0-0.3 10^3/uL Basophils # (Auto) 0.0 0.0-0.1 10^3/uL Neutrophils % (Manual) 80 % Lymphocytes % (Manual) 13 % Monocytes % (Manual) 4 % Eosinophils % (Manual) 0 % Basophils % (Manual) 0 % Band Neutrophils 1 % Atypical Lymphocytes 2 % Toxic Granulation 1+ Sodium Level 129 L 135-145 MMOL/L Potassium Level 3.1 L 3.6-5.0 MMOL/L Chloride Level 93 L 98-107 MMOL/L Carbon Dioxide Level 23 21-32 MMOL/L Anion Gap 13 5-14 MMOL/L Blood Urea Nitrogen 12 7-18 MG/DL Creatinine 0.80 0.60-1.30 MG/DL Estimat Glomerular Filtration Rate > 60 BUN/Creatinine Ratio 15 Glucose Level 143 H 70-105 MG/DL Hemoglobin A1c 6.3 H 4.5-6.2 % Calcium Level 8.7 8.5-10.1 MG/DL Magnesium Level 1.8 1.8-2.4 MG/DL Total Bilirubin 0.8 0.1-1.0 MG/DL Aspartate Amino Transf (AST/SGOT) 29 5-34 U/L Alanine Aminotransferase (ALT/SGPT) 10 0-55 U/L Alkaline Phosphatase 71 40-136 U/L Total Protein 8.2 6.4-8.2 GM/DL Albumin 3.8 3.2-4.5 GM/DL Glucometer 147 H 70-110 MG/DL Radiology CT CHEST, ABDOMEN AND PELVIS. 1. Moderate to large volume colonic stool. 2. No identified acute abnormality at the level of the chest, abdomen, or pelvis. 3. Significant motion limitations of the exam. CXR, PA AND LAT Mild obstructive interstitial lung disease with no acute changes noted. No previous studies for comparison. CT HEAD 1. No acute intracranial abnormalities. 2. There is fluid within the left mastoid air cells and left middle ear as well as opacification of the left maxillary sinus and left ethmoid sinus. Physical Exam-([facility]) Physical Exam Vital Signs VS - Last 72 Hours, by Label 06/25/17 06/25/17 06/25/17 06/25/17 16:00 19:30 21:13 21:20 Temp 101.6 98.6 Pulse 105 78 84 Resp 18 18 21 B/P (MAP) 138/68 181/82 Pulse Ox 92 97 97 O2 Delivery Room Air Nasal Cannula Room Air Nasal Cannula O2 Flow Rate 2.00 2.00 06/26/17 06/26/17 06/26/17 06/26/17 00:24 04:15 08:24 09:34 Temp 100.1 99.3 96.8 98.3 Pulse 90 91 81 Resp 18 20 12 B/P (MAP) 197/82 142/81 156/74 Pulse Ox 95 96 93 O2 Delivery Room Air Room Air Room Air Capillary Refill : Less Than 3 Seconds General Appearance: no apparent distress Eyes: Bilateral Eye Normal Inspection, Bilateral Eye PERRL, Bilateral Eye EOMI HEENT: PERRL/EOMI, pharynx normal, No scleral icterus (R), No scleral icterus ( L), No photophobia, No TM abnormal (R), TM abnormal (L), No pharyngeal erythema , other (multiple missing teeth, gums appear intact and no evidence of infection ) Neck: non-tender, full range of motion, supple, normal inspection, No lymphadenopathy (R), lymphadenopathy (L), No tender midline, No thyromegaly Respiratory: chest non-tender, lungs clear, normal breath sounds, no respiratory distress, no accessory muscle use, No crackles, No rales, No rhonchi Cardiovascular: normal peripheral pulses, regular rate, rhythm, no edema, no gallop, no JVD, no murmur Gastrointestinal: normal bowel sounds, non tender, soft, no organomegaly, no pulsatile mass, No distended, No guarding, No rebound, No tenderness Back: normal inspection, no CVA tenderness, no vertebral tenderness Extremities: normal range of motion, non-tender, normal inspection, no pedal edema, no calf tenderness Neurologic/Psychiatric: alert, normal mood/affect, oriented x 3 Skin: normal color, warm/dry, tattoos/piercings Lymphatic: other (left cervical lymphadenopathy) Short Stay Diagnosis Discharge Diagnosis-Short Stay Admission Diagnosis Left Otitis Media Left Mastoiditis Fever Dizziness Ear Drainage Gait Instability Final Discharge Diagnosis Left Otitis Media Left Mastoiditis Fever Dizziness Ear Drainage Gait Instability Conclusion Plan Pt otitis media does not appear to be overwhelming at the time of exam this morning after he has received IV antibiotics and topical drops. From an infection standpoint he can go home on PO antibiotics; drainage shows gram negative scott growth, will treat with PO Bactrim, Ciprodex drops and add Clindamycin in case of any dental contribution to his infection that is not readily apparent. Pt does not have PCP, but has appt to establish care with Alyson Handy on 07/02, so we will have him keep that appt, establish care and follow up after discharge. Contacted by nursing at PT at 12:55 -- patient is extremely unsteady on his feet and not safe for discharge, as he is unable to walk without significant assistance, and he is too unsteady to use a walker without assistance. Will suspend pt's discharge and have him evaluated for potential inpatient rehab vs placement after discharge; pt has had head CT and is shows no acute process, pt' s brother reports that his gait has been getting less steady for the last month or so, and he has been falling at home. Do not expect that pt will likely improve significantly in the next 1-2 days, and will have social work start to investigate options for discharge. Will keep IV abx with addition of clindamycin for above stated reasons. Will have seen by OT and PT as well. Clinical Quality Measures DVT/VTE Risk/Contraindication: Risk Factor Score Per Nursin RFS Level Per Nursing on Admit: 4+=Very High BARNIDGE,LEXUS E DO Jun 26, 2017 10:28
[2017-06-26] MEDS ORDERED: IBUPROFEN TABLET 200 MG TAB PO PRN (10:30)
[2017-06-26] MEDS ORDERED: LORATADINE (CLARITIN) 10 MG TAB PO PRN (10:30)
[2017-06-26] MEDS ORDERED: CIPR2.5D2 LEFT EAR (10:36)
[2017-06-26] MEDS ORDERED: SULF1TAB35 PO (10:36)
[2017-06-26] MEDS ORDERED: CLIN300C11 PO (10:38)
--- NOTE | 2017-06-26 10:41 | Discharge Instructions ---
Discharge [facility] Discharge Medications New, Converted or Re-Newed RX: Transmitted to Pharmacy New Medications: Clindamycin HCl (Clindamycin HCl) 300 Mg Capsule 300 MG PO TID for 7 Days, #21 CAP 0 Refills Sulfamethoxazole/Trimethoprim (Bactrim Ds Tablet) 1 Each Tablet 1 EACH PO BID for 7 Days, #14 TAB 0 Refills Ciprofloxacin HCl (Ciprofloxacin HCl) 2.5 Ml Drops 2 DROPS LEFT EAR BID for 10 Days, #1 5ML 0 Refills 2 drops in left ear twice daily Continued Medications: Ibuprofen (Advil) 200 Mg Tablet 800 MG PO TID PRN for PAIN-MILD, TAB Loratadine (Loratadine) 10 Mg Tablet 10 MG PO DAILY PRN for ALLERGIES, TAB Paliperidone Palmitate (Invega Trinza) 546 Mg/1.75 Ml Syringe 546 MG IM EVERY 12 WEEKS, EA Patient Instructions Goal/Follow Up Appt: 07/02/17 at 2:20 PM with Nathan EUGENE Patient Instructions: Keep left ear clean and dry, use medication as directed. Do NOT put anything in ear. Return to The Hospital For: Fever >101 uncontrolled with tylenol or ibuprofen, severe pain, persistent nausea or vomiting Activity & Diet Discharge Diet: ADA Diet Activity as Tolerated: Yes Orders-Post D/C & Referrals Pneu Vac Indicated: Yes ELIE MELCHOR DO Jun 26, 2017 10:41
[2017-06-26] MEDS ORDERED: KCL 20 MEQ TAB (K-DUR) PO NR (10:45)
[2017-06-26 12:00] VITALS: BP 130/76
--- NOTE | 2017-06-26 14:46 | Physical Therapy Evaluation ---
PT Evaluation-General Medical Diagnosis Admission Date Jun 25, 2017 at 21:09 Medical Diagnosis: mastoiditis left Onset Date: Jun 25, 2017 Therapy Diagnosis Therapy Diagnosis: unsteady gait/balance; weakness Height/Weight Height (Feet): 6 Height (Inches): 3.00 Weight (Pounds): 237 Weight (Ounces): 4.0 Precautions Precautions/Isolations: Fall Prevention, Standard Precautions Referral Physician: Chava Reason for Referral: Evaluation/Treatment Medical History Pertinent Medical History: DM Additional Medical History psychiatric issues/mental illness; past drug use Current History increase in dizziness bad teeth noncompliant with medical issues Reviewed History: Yes Social History Home: Single Level Current Living Status: Other Family Prior/[facility] Prior Level of Function Functional [place] Measure 0=Not Assessed/NA 4=Minimal Assistance 1=Total Assistance 5=Supervision or Setup 2=Maximal Assistance 6=Modified [place] 3=Moderate Assistance 7=Complete [place] Bed Mobility: 7 Transfers (B,C,W/C) (FIM): 7 Gait: 7 per family patient has had multiple falls and is unable to care for self x 1 month PT Evaluation-Current Subjective Patient is diaphoretic and confused. Family present. Pain Numeric Pain Scale: 0-No Pain Location: No Pain Reported Objective Patient Orientation: Confused, Listless Problem Solving: Poor ROM/Strength ROM Lower Extremities bilateral LE WNL Strenght Lower Extremities 3-/5 grossly bilaterally Integumentary/Posture Integumentary refer to nursing notes Bladder Incontinence: Yes Posture functional Neuromuscular (Tone, Coordination, Reflexes) severely diminished coordination/proprioception Sensory Vision: Unable to Assess Hearing: Impaired Sensation Right Lower Extremit: Impaired Sensation Left Lower Extremity: Impaired Transfers Functional [place] Measure 0=Not Assessed/NA 4=Minimal Assistance 1=Total Assistance 5=Supervision or Setup 2=Maximal Assistance 6=Modified [place] 3=Moderate Assistance 7=Complete [place] Transfers (B, C, W/C) (FIM): 2 Scootin Rollin Supine to/from Sit: 5 Sit to/from Stand: 2 bed t/f WC(FIM only if WC use): 2 Patient unable to stand unassisted due to poor balance Gait Mode of Locomotion: Walk Anticipated Mode of Locomotion: Walk Gait (FIM): 2 Distance (FIM): 1=up to 49 ft Distance: 15' x 2 Gait Level of Assist: 2 Gait Persons Needed: 1 Comments/Gait Description attempted to ambulate with and without FWW. Patient unable to stand unassisted due to poor balance/dizziness Balance Sitting Static: Poor Sitting Dynamic: Poor Standing Static: Poor Standing Dynamic: Poor Assessment/Needs 62 y.o. male, will benefit from skilled PT to address functional strength and mobility to improve current LOF. Patient is severely debilitated and unable to safely ambulate, transfer or return to home at this time. Rehab Potential: Guarded Post Rehab Potential-Barriers: compliance PT In Classroom Tutor Goals In Classroom Tutor Goals PT In Classroom Tutor Goals Time Frame: Jul 10, 2017 Transfers (B,C,W/C) (FIM): 4 Gait (FIM): 4 Gait distance (FIM): 3=150 ft Distance: 200' Gait Level of Assist: 4 Gait Assistive Device: FWW PT Plan Problem List Problem List: Activity Tolerance, Functional Strength, Safety, Balance, Gait, Transfer, Bed Mobility Treatment/Plan Treatment Plan: Continue Plan of Care Treatment Plan: Bed Mobility, Education, Functional Activity [place], Functional Strength, Gait, Safety, Therapeutic Exercise, Transfers Treatment Duration: Jul 10, 2017 Frequency: 11 times per week Estimated Hrs Per Day: .5 hour per day Patient and/or Family Agrees t: Yes Safety Risks/Education Patient Education: Safety Issues Teaching Recipient: Patient, Family Teaching Methods: Demonstration, Discussion Response to Teaching: Verbalize Understanding, Return Demonstration Discharge Recommendations Therapy D/C Recommendations: Acute Rehab, Home w/ Family Support, Detention Placement, [facility] (TCU/NH) Time/GCodes Time In: 1240 Time Out: 1303 Total Billed Treatment Time: 23 Total Billed Treatment 1 visit [facility] 23 min COLT SALOMON PT Jun 26, 2017 14:46
[2017-06-26] MEDS: CLINDAMYCIN INJECTION 600 MG in NS (IVPB) 50 ML IV SCH ×2 (15:09→22:14)
[2017-06-26] MEDS: CATHETER FLUSH 10 ML SYR IV SCH ×2 (15:14→22:14)
[2017-06-26 16:00] VITALS: BP 144/67
--- NOTE | 2017-06-26 16:08 | Occ Therapy Progress Note ---
Therapy Progress Note Order received for OT eval and treat. Chart review completed. Attempted evaluation this pm. Pt asleep in bed and difficult to awaken. Pt opens eyes briefly, but is unable to maintain alertness to participate in evaluation at this time. Will attempt evaluation 06/27/17. RN present and aware. SANTI OCAMPO OT Jun 26, 2017 16:08
[2017-06-26 19:37] VITALS: BP 163/95
[2017-06-26] MEDS ORDERED: cefTRIAXone 2 GM/NS 50 ML IVPB IV SCH ×2 (20:00)
[2017-06-27] VITALS: BP 157/77
[2017-06-27 04:00] VITALS: BP 168/88
[2017-06-27] MEDS: inSUlin (REGULAR) HUMAN 1 UNIT/0.01 ML (CHARGE PER UNIT) SC SCH ×2 (06:00→11:30)
[2017-06-27] MEDS: CLINDAMYCIN INJECTION 600 MG in NS (IVPB) 50 ML IV SCH (06:00)
[2017-06-27] MEDS: CATHETER FLUSH 10 ML SYR IV SCH (06:00)
[2017-06-27 06:13] LABS: BASOPHILS % (AUTO) 0 % (0-10); EOSINOPHILS % (AUTO) 0 % (0-10); LYMPHOCYTES # (AUTO) 1.5 X 10^3 (1.0-4.0); LYMPHOCYTES % (AUTO) 13 % (12-44); MEAN CORPUSCULAR HEMOGLOBIN 29 PG (25-34); MEAN CORPUSCULAR HGB CONC 34 G/DL (32-36); MEAN CORPUSCULAR VOLUME 85 FL (80-99); MEAN PLATELET VOLUME 10.5 FL (7.4-10.4); MONOCYTES # (AUTO) 0.7 X 10^3 (0.0-1.0); MONOCYTES % (AUTO) 6 % (0-12); NEUTROPHILS # (AUTO) 9.3 X 10^3 (1.8-7.8); NEUTROPHILS % (AUTO) 80 % (42-75); PLATELET COUNT 176 10^3/uL (130-400); RED BLOOD COUNT 5.85 10^6/uL (4.35-5.85); RED CELL DISTRIBUTION WIDTH 13.4 % (10.0-14.5); WHITE BLOOD COUNT 11.6 10^3/uL (4.3-11.0)
[2017-06-27 06:40] LABS: ANION GAP 15 MMOL/L (5-14); BLOOD UREA NITROGEN 13 MG/DL (7-18); BUN/CREATININE RATIO 15; CALCIUM 8.7 MG/DL (8.5-10.1); CARBON DIOXIDE 21 MMOL/L (21-32); CHLORIDE 97 MMOL/L (98-107); CREATININE SERUM 0.85 MG/DL (0.60-1.30); GFR ESTIMATED > 60; GLUCOSE 177 MG/DL (70-105); MAGNESIUM 2.2 MG/DL (1.8-2.4); POTASSIUM 3.6 MMOL/L (3.6-5.0); SODIUM 133 MMOL/L (135-145); hs C REACTIVE PROTEIN 4.64 MG/DL (0.00-0.50)
--- NOTE | 2017-06-27 06:55 | Progress Note-Standard ---
Standard Progress Note Progress Notes/Assess & Plan Date Seen by Provider: Jun 27, 2017 Time Seen by Provider: 06:45 Progress/Assessment & Plan ENT-David Arambula seen and evaluated Patient has draining left ear-brither states it has been a long winder tender issue x-ray shows a scleoritc fluid filled middle ear and mastoid on left side also shows left sinusitis most likely secondary to poor dentitiion exam Left Ear-mucoid driqnage in canal-canal not swollen no swelling or tnedeness of mastoid aerobic and anaerobic cultures taken from the left side and sent to the lab started on cipro opth soln 3drops bid to left ear ceftiraxone fine until we get culture results back may want to add cleocin 600mg iv tid to cover dental related sinusitis as well- will leave that up to primary care will follow while i nthe hosptial and check culture when available ENT-David-05/31- wbc decreased to 11.6 cx-grew out proteus which is sensitive to the cipro drops discharge writtent by [facility] on cleocin and bactrim NMS-ELM-9-10 days HAMZAH PANTOJA MD Jun 27, 2017 6:55 am
[2017-06-27 08:00] VITALS: BP 167/80
[2017-06-27] MEDS: NICOTINE 21 MG (NICODERM) PATCH TD SCH (09:09)
[2017-06-27] MEDS: CIPROFLOXACIN 0.3% (CILOXAN) 2.5 ML BTL LEFT EAR SCH (09:10)
--- NOTE | 2017-06-27 10:29 | Physical Therapy Daily Note ---
PT Daily Note-Current Subjective States that his balance is still bad. Pain Numeric Pain Scale: 5-Moderate Pain Location Body Site: Back Transfers Functional [place] Measure 0=Not Assessed/NA 4=Minimal Assistance 1=Total Assistance 5=Supervision or Setup 2=Maximal Assistance 6=Modified [place] 3=Moderate Assistance 7=Complete IndependenceIRFPAI Quality Coding Scale 6 Independent with activity with or without an assistive device 5 Patient requires set up or clean up by helper. Patient completes activity by themselves 4 Supervision or touching assist (CGA). [place] provide cues , steadying assist 3 The helper provides less than half the effort to complete the activity 2 The helper provides more than half the effort to complete the activity 1 Dependent. The helper does all the effort to complete an activity 7 Patient refused to complete or attempt activity 9 The patient did not perform the activity before the current illness or injury 88 Not attempted due to Medical conditions or safety concerns Transfers (B, C, W/C) (FIM): 5 Scootin Supine to/from Sit: 5 Sit to/from Stand: 5 Gait Training Gait (FIM): 1 Distance (FIM): 1=up to 49 ft Distance: 15' Gait Level of Assist: 4 Gait Persons Needed: 1 Gait Assistive Device: FWW Patient has significant gait instability. Balance Special Test Comments poor dynamic standing balance Assessment Current Status: Good Progress Long discussion with family. Brother believes something neurologically is affecting the patient and wants further rehabilitation. From a PT standpoint the patient is not safe to return home. PT Rubber Compounder Supervisor Goals [facility]dc Goals PT Rubber Compounder Supervisor Goals Time Frame: Jul 10, 2017 Transfers (B,C,W/C) (FIM): 4 Gait (FIM): 4 Gait distance (FIM): 3=150 ft Distance: 200' Gait Level of Assist: 4 Gait Assistive Device: FWW PT Plan Treatment/Plan Treatment Plan: Continue Plan of Care Treatment Plan: Bed Mobility, Education, Functional Activity [place], Functional Strength, Gait, Safety, Therapeutic Exercise, Transfers Treatment Duration: Jul 10, 2017 Frequency: 11 times per week Estimated Hrs Per Day: .5 hour per day Patient and/or Family Agrees t: Yes Discharge Recommendations Therapy D/C Recommendations: [facility] (TCU/[facility]) Time/GCodes Time In: 1000 Time Out: 1015 Total Billed Treatment Time: 15 Total Billed Treatment 1, MAULIK Spence Codes Necessary: JEEVAN Aponte PT Jun 27, 2017 10:29
[2017-06-27 12:00] VITALS: BP 159/76
[2017-06-27] MEDS ORDERED: NCT21TD TD (12:04)
--- NOTE | 2017-06-27 12:15 | D/C HH Face to Face Order ---
D/C Face to Face Orders Instructions for Patient Patient Instructions/FollowUp: Pt to use walker for any ambulation at home; discussed with pt and family that pt needs to move slowly and be supervised if at all possible. Pt with significant gait abnormality and unsteadiness on feet. Physician to follow Patient: Brent Rozina TERMINAL GAUGER Discharge Diet for Home: ADA Diet Patient Data-Allergies,Ht & Wt Patient Allergies: Coded Allergies: No Known Drug Allergies (Unverified , 02/07/11) Height (Feet): 6 Height (Inches): 3.00 Weight (Pounds): 237 Weight (Ounces): 4.0 Home Health Need/Face to Face Date of Face to Face: Jun 27, 2017 Clinical Findings: Instability, Unsteady gait I have seen Pt [id number]: Yes Discharged To: Home Diagnosis/Conditions: Otitis Media Mastoiditis Gait Instability Fever - resolved Type II Diabetes Mellitus - currently diet controlled, HgbA1C Hx of Drug Abuse Problems/Diagnosis/Condition: Patient is Homebound due to: CognItive deficits, Mao fall risk due to instabilty, Muscle weakness Homebound Status Due to the above stated illness, injury or surgical procedure (medical condition or diagnosis) and associated clinical findings, the patient is homebound because of his/her inability to leave home except with aid of a supportive device and/or person AND leaving the home requires a considerable and taxing effort or is medically contraindicated. Pt req the following assistanc: Aid of another person, Walker Home Health Nursing Orders Home Health Services Order: Nursing Services, Sleever-Evaluate & Treat, Physical Therapy-Evaluate & Treat Home Health Infusion Therapy Line Start Date: Jun 25, 2017 Line Start Time: 1656 Therapy Orders Therapy Orders: OT (must have SN or PT order), Physical Therapy Therapy Specific Orders: Eval assistive deivces, Teach enviro modifications/ safety, Gait training, Increase strength/endurance Certify Stmt I certify that this patient is under my care and that I, a nurse practitioner or a physician; a certified surgical tech/first assistant working with me, had a face to face encounter that - meets the physician face to face encounter requirements with this patient as dated. ELIE MELCHOR DO Jun 27, 2017 12:15
[2017-06-27] MEDS: ACETAMINOPHEN 500 MG TAB (TYLENOL) PO PRN (13:13)
[2017-06-27 13:25] VITALS: BP 159/76
== END 2017-06-27 13:25 | disposition home health service (06) | DRG 153 ==
LOC: EDUNIT# 15:21 → ER 15:24 → 4TH 21:09
PROVIDERS: ADMIT Family Medicine; ATTEND Family Medicine
DX: H65.192 Other acute nonsuppurative otitis media, left ear (principal); H70.92 Unspecified mastoiditis, left ear; J32.9 Chronic sinusitis, unspecified; K02.9 Dental caries, unspecified; E87.1 Hypo-osmolality and hyponatremia; E11.9 Type 2 diabetes mellitus without complications; E83.42 Hypomagnesemia; E87.6 Hypokalemia; F17.210 Nicotine dependence, cigarettes, uncomplicated; F79 Unspecified intellectual disabilities; R26.9 Unspecified abnormalities of gait and mobility; B96.4 Proteus (mirabilis) (morganii) as the cause of diseases classified elsewhere; F11.21 Opioid dependence, in remission
CPT/HCPCS: 36415; 70450; 71020; 71275; 74177; 80048; 80053; 80306; 80320; 81000; 82150; 82962; 83036; 83605; 83690; 83735; 85007; 85025; 85027; 85610; 85730; 86141; 87040; 87070; 87075; 87077; 87186; 93005; 93041; 96365; 96367; 96375

== ENCOUNTER 2017-06-29 12:23 | Observation (INO) | payer MEDICAID ==
[~2017-06-29] VITALS: Ht 190.5 cm; Wt 107.6 kg
[~2017-06-29 12:23] MED LIST changes: +CIPR2.5D2 LEFT EAR; +CLIN300C11 PO; +IBUP-30 PO; +LORA10TA7 PO; +NCT21TD TD; +PALI546S IM; +SULF1TAB35 PO
[2017-06-29] MEDS ORDERED: NS IV 1000 ML 1,000 ML IV ONE (12:43)
[2017-06-29] MEDS ORDERED: PIPERACILLIN SODIUM/TAZOBACTAM 4.5 GM in NS (IVPB) 100 ML IV ONE (12:45)
[2017-06-29 12:57] LABS: BASOPHILS % (AUTO) 0 % (0-10); EOSINOPHILS % (AUTO) 0 % (0-10); LYMPHOCYTES # (AUTO) 2.3 X 10^3 (1.0-4.0); LYMPHOCYTES % (AUTO) 21 % (12-44); MEAN CORPUSCULAR HEMOGLOBIN 29 PG (25-34); MEAN CORPUSCULAR HGB CONC 34 G/DL (32-36); MEAN CORPUSCULAR VOLUME 86 FL (80-99); MEAN PLATELET VOLUME 10.3 FL (7.4-10.4); MONOCYTES # (AUTO) 0.8 X 10^3 (0.0-1.0); MONOCYTES % (AUTO) 8 % (0-12); NEUTROPHILS # (AUTO) 7.7 X 10^3 (1.8-7.8); NEUTROPHILS % (AUTO) 70 % (42-75); PLATELET COUNT 198 10^3/uL (130-400); RED BLOOD COUNT 5.01 10^6/uL (4.35-5.85); RED CELL DISTRIBUTION WIDTH 13.4 % (10.0-14.5); WHITE BLOOD COUNT 10.9 10^3/uL (4.3-11.0)
[2017-06-29 13:08] LABS: PROTHROMBIN TIME PATIENT 13.7 SEC (12.2-14.7)
[2017-06-29 13:16] LABS: ALANINE AMINOTRANSFERASE 12 U/L (0-55); ALBUMIN 3.3 GM/DL (3.2-4.5); ANION GAP 11 MMOL/L (5-14); ASPARTATE AMINO TRANSFERASE 22 U/L (5-34); BILIRUBIN,TOTAL 0.5 MG/DL (0.1-1.0); BLOOD UREA NITROGEN 20 MG/DL (7-18); BUN/CREATININE RATIO 19; CALCIUM 8.8 MG/DL (8.5-10.1); CARBON DIOXIDE 24 MMOL/L (21-32); CHLORIDE 96 MMOL/L (98-107); CREATININE SERUM 1.06 MG/DL (0.60-1.30); GFR ESTIMATED > 60; GLUCOSE 210 MG/DL (70-105); POTASSIUM 3.5 MMOL/L (3.6-5.0); SODIUM 131 MMOL/L (135-145); TOTAL PROTEIN 7.1 GM/DL (6.4-8.2)
[2017-06-29 13:22] LABS: TROPONIN I < 0.30 NG/ML (<0.30)
[2017-06-29 14:54] LABS: BILIRUBIN,URINE NEGATIVE (NEGATIVE); KETONES,URINE NEGATIVE (NEGATIVE); LEUKOCYTE ESTERASE ,URINE NEGATIVE (NEGATIVE); NITRITE,URINE NEGATIVE (NEGATIVE); PH,URINE 6 (5-9); PROTEIN,URINE NEGATIVE (NEGATIVE); UROBILINOGEN,URINE NORMAL (NORMAL)
[2017-06-29] MEDS ORDERED: KCL 20 MEQ TAB (K-DUR) PO ONE (15:00)
[2017-06-29] MEDS ORDERED: NS 100 ML (IVPB) BAG IV ONE (15:00)
[2017-06-29] MEDS ORDERED: IOHEXOL 350 MG/ML 100 ML (OMNIPAQUE 350) VIAL IV ONE (15:00)
[2017-06-29 15:03] LABS: SQUAMOUS EPITHELIAL CELL,UR 0-2 /HPF
[2017-06-29 15:57] VITALS: BP 119/74
[2017-06-29] MEDS ORDERED: CIPR2.5D2 LEFT EAR (16:25)
[2017-06-29] MEDS ORDERED: SULF-222 PO (16:25)
[2017-06-29] MEDS ORDERED: PIPERACILLIN/TAZOBACTAM 4.5 GM/NS 100 ML IV NR ×2 (16:25)
[2017-06-29] MEDS ORDERED: CLIN300C11 PO (16:25)
[2017-06-29] MEDS ORDERED: IBUPROFEN 800 MG (MOTRIN) TAB PO PRN ×2 (16:30→20:00)
[2017-06-29] MEDS ORDERED: ONDANSETRON 4 MG/2 ML (SDV) Z0FRAN IV PRN (16:30)
[2017-06-29] MEDS ORDERED: ACETAMINOPHEN 500 MG TAB (TYLENOL) PO PRN (16:30)
[2017-06-29] MEDS ORDERED: CATHETER FLUSH 10 ML SYR IV PRN (16:45)
[2017-06-29 17:49] VITALS: BP 159/81
[2017-06-29] MEDS: NS IV 1000 ML 1,000 ML IV SCH ×2 (18:41→20:28)
[2017-06-29] MEDS: SULFACETAMIDE 10% OP SCH ×2 (18:42→21:59)
[2017-06-29] MEDS: PIPERACILLIN/TAZOBACTAM 4.5 GM/NS 100 ML IVPB IV SCH ×4 (19:00→20:28)
[2017-06-29 19:15] VITALS: BP 152/77
[2017-06-29] MEDS ORDERED: IBUPROFEN TABLET 200 MG TAB PO PRN (19:30)
[2017-06-29] MEDS ORDERED: INFLUENZA TRIvalent 2017-2018 0.5 ML/45 MCG SYR IM ONE (20:15)
[2017-06-29] MEDS ORDERED: traZODone 50 MG (DESYREL) TAB PO SCH (21:00)
[2017-06-29] MEDS: inSUlin (REGULAR) HUMAN 1 UNIT/0.01 ML (CHARGE PER UNIT) SC SCH (21:52)
[2017-06-30 00:16] VITALS: BP 147/83
[2017-06-30] MEDS: SULFACETAMIDE 10% OP SCH ×4 (01:11→11:55)
[2017-06-30 04:01] VITALS: BP 131/74
[2017-06-30] MEDS: PIPERACILLIN/TAZOBACTAM 4.5 GM/NS 100 ML IVPB IV SCH ×4 (04:21→11:54)
[2017-06-30 05:31] LABS: BASOPHILS # (AUTO) 0.1 10^3/uL (0.0-0.1); BASOPHILS % (AUTO) 1 % (0-10); EOSINOPHILS % (AUTO) 0 % (0-10); LYMPHOCYTES # (AUTO) 2.7 X 10^3 (1.0-4.0); LYMPHOCYTES % (AUTO) 26 % (12-44); MEAN CORPUSCULAR HEMOGLOBIN 29 PG (25-34); MEAN CORPUSCULAR HGB CONC 33 G/DL (32-36); MEAN CORPUSCULAR VOLUME 87 FL (80-99); MEAN PLATELET VOLUME 9.7 FL (7.4-10.4); MONOCYTES # (AUTO) 0.9 X 10^3 (0.0-1.0); MONOCYTES % (AUTO) 9 % (0-12); NEUTROPHILS # (AUTO) 6.7 X 10^3 (1.8-7.8); NEUTROPHILS % (AUTO) 65 % (42-75); PLATELET COUNT 174 10^3/uL (130-400); RED CELL DISTRIBUTION WIDTH 13.5 % (10.0-14.5); WHITE BLOOD COUNT 10.3 10^3/uL (4.3-11.0)
[2017-06-30] MEDS: inSUlin (REGULAR) HUMAN 1 UNIT/0.01 ML (CHARGE PER UNIT) SC SCH ×2 (05:39→11:54)
[2017-06-30 05:52] LABS: ANION GAP 8 MMOL/L (5-14); BLOOD UREA NITROGEN 12 MG/DL (7-18); BUN/CREATININE RATIO 14; CALCIUM 8.8 MG/DL (8.5-10.1); CARBON DIOXIDE 25 MMOL/L (21-32); CHLORIDE 100 MMOL/L (98-107); CREATININE SERUM 0.83 MG/DL (0.60-1.30); GFR ESTIMATED > 60; GLUCOSE 123 MG/DL (70-105); POTASSIUM 3.7 MMOL/L (3.6-5.0); SODIUM 133 MMOL/L (135-145)
[2017-06-30] MEDS: NS IV 1000 ML 1,000 ML IV SCH (06:30)
[2017-06-30 08:00] VITALS: BP 154/87
[2017-06-30] MEDS ORDERED: ASPI325T32 PO (11:35)
[2017-06-30] MEDS ORDERED: ASPIRIN E.C. 325 MG (ECOTRIN) TABLET PO NR (11:45)
[2017-06-30 12:00] VITALS: BP 139/66
[2017-06-30 15:15] VITALS: BP 139/66
== END 2017-06-30 11:20 ==
LOC: EDUNIT# 12:23 → ER 12:25 → 4TH 15:25 → UNDOADMOB 15:25 → 4TH 15:57 → UNDODISOB 06-30 15:15
PROVIDERS: ADMIT Pediatrics; ATTEND Pediatrics
DX: I63.29 Cerebral infarction due to unspecified occlusion or stenosis of other precerebral arteries (principal); H70.92 Unspecified mastoiditis, left ear; A41.9 Sepsis, unspecified organism; E11.9 Type 2 diabetes mellitus without complications; F20.9 Schizophrenia, unspecified; F17.210 Nicotine dependence, cigarettes, uncomplicated; F19.21 Other psychoactive substance dependence, in remission; Z79.82 Long term (current) use of aspirin; Z79.899 Other long term (current) drug therapy
CPT/HCPCS: 36415; 70450; 70496; 70498; 70551; 71010; 80048; 80053; 81000; 82962; 83036; 83605; 84484; 85025; 85379; 85610; 85730; 87040; 93005; 93041; 96361; 96365; G0378

== ENCOUNTER 2017-07-03 12:42 | Outpatient (RCR) | payer MEDICAID ==
[~2017-07-03 12:42] MED LIST changes: +ASPI325T32 PO; +SULF-222 PO
== END 2017-07-17 10:59 | disposition home or self-care (01) ==
PROVIDERS: ATTEND Pediatrics
DX: I63.50 Cerebral infarction due to unspecified occlusion or stenosis of unspecified cerebral artery (principal); R26.9 Unspecified abnormalities of gait and mobility

== ENCOUNTER 2017-07-06 12:52 | Outpatient (RCR) | payer MEDICAID | END 2017-07-24 16:10 | disposition home or self-care (01) | PROVIDERS: ATTEND Pediatrics | DX: I63.50 Cerebral infarction due to unspecified occlusion or stenosis of unspecified cerebral artery (principal); R26.9 Unspecified abnormalities of gait and mobility ==

== ENCOUNTER 2017-07-07 14:05 | Outpatient (RCR) | payer MEDICAID | END 2017-07-15 14:00 | disposition home or self-care (01) | PROVIDERS: ATTEND Pediatrics | DX: I63.50 Cerebral infarction due to unspecified occlusion or stenosis of unspecified cerebral artery (principal); R26.9 Unspecified abnormalities of gait and mobility ==

== ENCOUNTER → 2017-09-03 | Outpatient (CLI) | payer MEDICAID ==
[~2017-09-03] MED LIST changes: -NCT21TD TD; +NICO-588 TD
--- NOTE | 2017-09-03 14:19 | Diagnostic Imaging Report ---
CT IAC (CUSTODIAL AIDE AUDIT CANAL) WO TECHNIQUE: High-resolution imaging of the bilateral temporal bones was performed without contrast. INDICATION: Chronic drainage of left ear. COMPARISON: CT head of 06/25/2017. FINDINGS: Left temporal bone: The left mastoid air cells are filled with fluid and/or soft tissue debris. There is coalescence of multiple of the intertrabecular spaces due to erosions or loss of the normal trabecula in the left temporal bone. There is no erosion of the superior cortical table of the mastoid air cells or the medial cortex of the temporal bone. The left middle ear cavity has fluid and/or debris within the epitympanum, mesial tympanum, and hypotympanum regions. The middle ear ossicles appear to remain in normal configuration without definitive erosions. The left facial nerve course appears normal, though the osseous tunnel housing the facial nerve in the temporal bone may have erosions along its vertical component. The tympanic membrane is not well visualized. There is abnormal soft tissue thickening throughout the external auditory canal. No evidence of dehiscent jugular bulb. The inner ear canal is not abnormally expanded. The semicircular canals are normal in morphology. Right temporal bone: Right mastoid air cells are clear. Inner ear canal is not expanded. The semicircular canals and cochlea have normal morphology. Facial nerve has normal course. The middle ear cavity is clear. The ossicular chain is normal in morphology. Tympanic membrane is grossly normal. No abnormal thickening of the external auditory canal. IMPRESSION: 1. Fluid and debris opacify the entire left mastoid air cells with areas of trabecular destruction and coalescence. Findings could relate to chronic mastoiditis, but there is no evidence of intracranial extension. 2. Abnormal fluid and/or debris within the entire middle ear cavity surrounding the ossicular chains. Differential includes extension of infection/inflammation from the mastoid air cells versus cholesteatoma which has eroded into the mastoid air cells. 3. Due to the erosive changes in the mastoid air cells, there is likely partial erosion of the osseous tunnel containing the vertical portion of the left facial nerve within the temporal bone. Dictated by: Dictated on workstation # [id number]
== END ==
LOC: RAD 11:25
PROVIDERS: ATTEND Otolaryngology Otolaryngology/Facial Plastic Surgery
DX: H74.8X2 Other specified disorders of left middle ear and mastoid (principal); H92.12 Otorrhea, left ear
CPT/HCPCS: 70480

== ENCOUNTER 2017-11-19 09:00 | Outpatient (RCR) | payer MEDICAID | END 2017-11-19 10:37 | disposition home or self-care (01) | PROVIDERS: ATTEND Family Medicine | DX: I69.354 Hemiplegia and hemiparesis following cerebral infarction affecting left non-dominant side (principal) ==

== ENCOUNTER 2021-03-06 13:58 | Outpatient (RCR) | payer MEDICAID ==
[~2021-03-06 13:58] MED LIST changes: -CIPR2.5D2 LEFT EAR; +CIPR2.5D3 LEFT EAR; -CLIN300C11 PO; +CLIN300C12 PO; -NICO-588 TD; +NICO-685 TD; -SULF1TAB35 PO; +SULF1TAB38 PO
== END 2021-06-04 | disposition home or self-care (01) ==
LOC: CARD 13:58
PROVIDERS: ATTEND Internal Medicine Cardiovascular Disease
DX: I49.9 Cardiac arrhythmia, unspecified (principal); I25.10 Atherosclerotic heart disease of native coronary artery without angina pectoris; R00.2 Palpitations; I10 Essential (primary) hypertension
CPT/HCPCS: 93225; 93226; 93306

== ENCOUNTER → 2021-04-05 | Outpatient (CLI) | payer MEDICAID ==
[~2021-04-05] MED LIST changes: +SULF1TAB35 PO; -SULF1TAB38 PO
--- NOTE | 2021-04-07 09:02 | Diagnostic Imaging Report ---
EXAM: CT IAC (GOLF CADDY AUDIT CANAL) WO INDICATION: Left ear cholesteatoma. Infection. COMPARISON: Temporal bone CT without contrast 09/03/2017. FINDINGS: Left: There is complete opacification of the left middle ear and mastoids. There are also destructive osseous changes involving the floor and attic of the left middle ear including the scutum. The stapes is not well seen, possibly due to technique as the contralateral stapes is not identified either. The left auditory ossicles are otherwise unremarkable. There is some thickening of the external auditory canal. Sclerotic changes have progressed involving both the cochlea. The semicircular canals are no longer evident. Vestibule is unremarkable and vestibular aqueduct is stable. Normal internal auditory canal. Right: The EAC, middle air, auditory ossicles and mastoid air cells are unremarkable. Normal cochlea, vestibule, semicircular canals and vestibular aqueduct. Normal internal auditory canal. Visualized paranasal sinuses are clear. Anterior subluxation of the temporomandibular joints may be positional. Visualized intracranial contents are unremarkable. IMPRESSION: 1. Progressive destructive changes involving the left mastoid and both the floor and attic of the left middle ear cavity. There is also increasing sclerosis within the left otic capsule resulting in a diminutive cochlea and no residual semicircular canals identified. The incus and malleus are unremarkable. The stapes is not well seen, similar to the contralateral and otherwise normal-appearing side. Given the temporal evolution since 2016, findings are most compatible with cholesteatoma although an infectious process could have a similar appearance. 2. Unremarkable right temporal bone. Dictated by: Dictated on workstation # [id number]
== END ==
LOC: RAD 15:45
PROVIDERS: ATTEND Otolaryngology Pediatric Otolaryngology
DX: H71.92 Unspecified cholesteatoma, left ear (principal); H74.8X2 Other specified disorders of left middle ear and mastoid; H91.92 Unspecified hearing loss, left ear; H81.02 Meniere's disease, left ear
CPT/HCPCS: 70480

== ENCOUNTER 2023-03-15 15:47 | Emergency (ER) | payer MEDICAID ==
[~2023-03-15] VITALS: Ht 185.5 cm; Wt 108.0 kg
[~2023-03-15 15:47] MED LIST changes: +CIPR2.5D18 LEFT EAR; -CIPR2.5D3 LEFT EAR; +CLIN-144 PO; -CLIN300C12 PO; -SULF1TAB35 PO; +SULF1TAB38 PO
--- NOTE | 2023-03-15 16:59 | ED General ---
General Chief Complaint: Dizziness/Syncope Stated Complaint: DIZZINESS Nursing Triage Note: PT TO ED BY EMS WITH C/O DIZZINESS. EMS REPORTS PT HAS BEEN DIZZY SINCE WAKING UP THIS MONRING. O2 87% PRIOR TO EMS ARRIVAL, PT PLACED ON 3 L NC, O2 TO MID 90S FOR EMS. PT REPORTS HE WOKE UP THIS MORNING FEELING WEAK. PT REPORTS PAIN IN RLE X 3 WEEKS. Source of Information: Patient Exam Limitations: No Limitations (BLACK MORTENSEN MD) History of Present Illness Date Seen by Provider: Mar 15, 2023 Time Seen by Provider: 16:59 Initial Comments Jaskaran is a 67-year-old male who presents to the emergency department with a chief complaint of feeling dizzy, spinning. He states he has felt this way for weeks. He is mostly dizzy when he gets up from a laying down position or standing from a seated position. He denies chest pain, palpitations. He is not short of breath. Nursing notes he was hypoxic at 87% prior to EMS arrival. He was placed on 3 L per nasal cannula and is now satting in the mid 90s. He states that he does wear oxygen occasionally at home. He lives with his sister and iqwbkxq-qu-urh. He states he came in this afternoon because his brother and ypyiok-ln-duh wanted him to be checked out for the dizziness. He feels weak and is also complaining of right lower extremity pain. He believes his right leg is a little swollen. He states this has been going on for several weeks as well. He tells me his primary care provider knows that his leg has been painful and also knows about his dizziness but has not started him on any medications. He complains of some left ear pain that is also been going on for many weeks. Not using any medications for this. He has been taking some Tylenol and ibuprofen for the leg pain. He has a history of prior stroke in 2017. He cannot tell me what his deficits are however he is very dysarthric. He denies headache, double vision. No recent fevers or chills. No problems with bowel or bladder. On physical exam he is point tender over the right sciatic and states the pain seems to emanate from there. Also has quite a bit of debris, canal edema in the left ear, TM unable to be visualized. Patient does admit that he uses Q-tips to clean out his ears. He is a diabetic. Timing/Duration: Other (weeks) Severity: Moderate Modifying Factors: worse with Movement; improves with Rest Associated Systoms: Other (pain right leg; pain left ear) (BLACK MORTENSEN MD) Allergies and Home Medications Allergies Coded Allergies: No Known Drug Allergies (Unverified , 06/29/17) Patient Home Medication List Home Medication List Reviewed: Yes (BLACK MORTENSEN MD) Aspirin (Aspirin EC) 325 Mg Tablet.dr, 325 MG PO DAILY Prescribed by: LOLI MARTE on 06/30/17 1135 Ciprofloxacin HCl (Ciprofloxacin HCl) 2.5 Ml Drops, 2 DROPS LEFT EAR BID, (Reported) Entered as Reported by: DAVID IVAN on 06/29/17 1625 Clindamycin HCl (Clindamycin HCl) 300 Mg Capsule, 300 MG PO TID, (Reported) Entered as Reported by: DAVID IVAN on 06/29/17 1625 Ibuprofen (Advil) 200 Mg Tablet, 800 MG PO TID PRN for PAIN-MILD, (Reported) Entered as Reported by: JOHANNY SOMMER on 06/26/17 0903 Paliperidone Palmitate (Invega Trinza) 546 Mg/1.75 Ml Syringe, 546 MG IM EVERY 12 WEEKS, (Reported) Entered as Reported by: JOHANNY SOMMER on 06/26/17 0903 Sulfamethoxazole/Trimethoprim (Sulfamethoxazole-Tmp Ds Tablet) 1 Each Tablet, 1 TAB PO BID, (Reported) Entered as Reported by: DAVID IVAN on 06/29/17 1625 Review of Systems Review of Systems Constitutional: see HPI EENTM: other (left ear pain) Respiratory: no symptoms reported Cardiovascular: no symptoms reported Gastrointestinal: no symptoms reported Genitourinary: no symptoms reported Musculoskeletal: other (right leg pain and swelling) Skin: no symptoms reported Psychiatric/Neurological: Other (dizziness) (BLACK MORTENSEN MD) All Other Systems Reviewed Negative Unless Noted: Yes (BLACK MORTENSEN MD) Past Kwnnjuy-Ovofkh-Wmltuo Hx Immunizations Up To Date Tetanus Booster (TDap): More than 5yrs (BLACK MORTENSEN MD) Seasonal Allergies Seasonal Allergies: No (BLACK MORTENSEN MD) Past Medical History Surgeries: No Respiratory: No Asthma Currently Using CPAP: No Currently Using BIPAP: No Cardiac: No Neurological: Yes (? MENTALLY CHALLENGED ?--FROM DRUG USE AND OR/INJURY PER FAMILY) Sexually Transmitted Disease: No HIV/AIDS: No Genitourinary: No Gastrointestinal: No Musculoskeletal: No Endocrine: Yes Diabetes, Non-Insulin dep HEENT: Yes Chronic Ear Infection Hearing Impairment: Denies Cancer: No Psychosocial: Yes Anxiety, Bipolar, Depression Integumentary: No Blood Disorders: No (BLACK MORTENSEN MD) Family Medical History Myocardial infarction 19 FATHER, Onset:Unknown Physical Exam Vital Signs Vital Signs - First Documented 03/15/23 15:50 Temp 35.1 Pulse 76 Resp 17 B/P (MAP) 150/102 (118) Pulse Ox 94 O2 Delivery Nasal Cannula O2 Flow Rate 2.00 (RHYS SIMMONS DO) Vital Signs Capillary Refill : Less Than 3 Seconds (BLACK MORTENSEN MD) Height, Weight, BMI Height: 6'3.00" Weight: 237lbs. 4.0oz. 107.313122os; 31.00 BMI Method:Stated General Appearance: No Apparent Distress, WD/WN Eyes: Bilateral Eye Normal Inspection, Bilateral Eye PERRL, Bilateral Eye EOMI HEENT: TM Abnormal (L) (significant purulent debris in left ear without significant canal edema; unable to visualize left TM due to debris; slight discomfort with manipulation of the left ear) Neck: Normal Inspection Respiratory: Lungs Clear, Normal Breath Sounds, No Accessory Muscle Use, No Respiratory Distress Cardiovascular: Regular Rate, Rhythm, Normal Peripheral Pulses Gastrointestinal: Non Tender, Soft Extremity: Normal Capillary Refill, Normal Inspection, Normal Range of Motion, No Calf Tenderness, Other (very minimal edema to left leg.. no calf tenderness; normal distal pulses) Neurologic/Psychiatric: Alert, Oriented x3, Normal Mood/Affect (very pleasant and affable. dysarthric (likely due to old stroke) tongue is midline), Other (normal learning designer strength bilaterally) Skin: Normal Color, Warm/Dry (BLACK MORTENSEN MD) Progress/Results/Core Measures Suspected Sepsis SIRS Temperature: Pulse: 76 Respiratory Rate: 17 Laboratory Tests 03/15/23 15:58: Blood Pressure 150 /102 Mean: 118 Laboratory Tests 03/15/23 15:58: (BLACK MORTENSEN MD) Results/Orders Lab Results Laboratory Tests Test 03/15/23 15:58 Range/Units White Blood Count 4.6 4.3-11.0 10^3/uL Red Blood Count 4.76 4.30-5.52 10^6/uL Hemoglobin 14.3 13.3-17.7 g/dL Hematocrit 42 40-54 % Mean Corpuscular Volume 88 80-99 fL Mean Corpuscular Hemoglobin 30 25-34 pg Mean Corpuscular Hemoglobin Concent 34 32-36 g/dL Red Cell Distribution Width 16.7 H 10.0-14.5 % Platelet Count 122 L 130-400 10^3/uL Mean Platelet Volume 13.7 H 9.0-12.2 fL Immature Granulocyte % (Auto) 0 % Neutrophils (%) (Auto) 66 42-75 % Lymphocytes (%) (Auto) 23 12-44 % Monocytes (%) (Auto) 10 0-12 % Eosinophils (%) (Auto) 1 0-10 % Basophils (%) (Auto) 1 0-10 % Neutrophils # (Auto) 3.0 1.8-7.8 10^3/uL Lymphocytes # (Auto) 1.1 1.0-4.0 10^3/uL Monocytes # (Auto) 0.4 0.0-1.0 10^3/uL Eosinophils # (Auto) 0.0 0.0-0.3 10^3/uL Basophils # (Auto) 0.0 0.0-0.1 10^3/uL Immature Granulocyte # (Auto) 0.0 0.0-0.1 10^3/uL Percent Immature Platelet Fraction 14.1 H 0.0-7.6 % Sodium Level 140 135-145 MMOL/L Potassium Level 3.6 3.6-5.0 MMOL/L Chloride Level 100 98-107 MMOL/L Carbon Dioxide Level 28 21-32 MMOL/L Anion Gap 12 5-14 MMOL/L Blood Urea Nitrogen 9 7-18 MG/DL Creatinine 0.97 0.60-1.30 MG/DL Estimat Glomerular Filtration Rate 85 BUN/Creatinine Ratio 9 Glucose Level 88 70-105 MG/DL Calcium Level 8.9 8.5-10.1 MG/DL Smear Scan (IRISRHYS K DO) My Orders Orders - IRISRHYS Elida DO Ketorolac Injection (Toradol Injection) (03/15/23 19:30) Rx-Meclizine Hcl (Rx-Antivert) (03/15/23 19:22) Rx-Naproxen (Rx-Naprosyn) (03/15/23 19:22) Scopolamine Patch (Transderm-Scop Patch) (03/15/23 19:30) (RHYS SIMMONS DO) Medications Given in ED Current Medications Medications Dose Ordered Sig/Ernestina Route Start Time Stop Time Status Last Admin Dose Admin Meclizine HCl 25 mg ONCE ONCE PO 03/15/23 17:15 03/15/23 17:17 DC 03/15/23 17:40 25 MG (RHYS SIMMONS DO) Vital Signs/I&O 03/15/23 15:50 Temp 35.1 Pulse 76 Resp 17 B/P (MAP) 150/102 (118) Pulse Ox 94 O2 Delivery Nasal Cannula O2 Flow Rate 2.00 (RHYS SIMMONS DO) Vital Signs/I&O Capillary Refill : Less Than 3 Seconds (BLACK MORTENSEN MD) Blood Pressure Mean: 118 Progress Note : Time: 17:30 Progress Note Medical records review from 2017 - Patient has had previous long standing issues with his left ear - looks like diagnosed with a Cholesteatoma on the left and has had chronic drainage and issues with CT previously of the IAC's. Likely this is a chronic issue that has progressed and is now causing issues with his balance and dizziness. CT head without contrast is pending and will partially address the IAC's. (BLACK MORTENSEN MD) Progress Note : Progress Note 1800--ASSUMED CARE FROM DR. MORTENSEN, AT SHIFT CHANGE. CT RESULTS PENDING AT THIS TIME. 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 Decision time for Depature: 19:20 (RHYS SIMMONS DO) Referrals: CHRISTINA LATHAM DO (PCP) Primary Care Physician [facility] (Family) Primary Care Physician Patient Instructions: DIABETES, Sciatica ED, Vertigo ED Add. Discharge Instructions: CONTINUE YOUR REGULAR MEDICATIONS PRESCRIBED FOLLOW UP WITH YOUR ENT PHYSICIAN AT SCHEDULED FOLLOW UP WITH [facility] [place] THIS WEEK FOR FURTHER CARE--CALL IN THE MORNING TO SCHEDULE AN APPOINTMENT All discharge instructions reviewed with patient and/or family. Voiced understanding. Scripts Naproxen (Naproxen) 500 Mg Tablet.dr 500 MG PO BID, #20 TAB Prov: RHYS SIMMONS DO 03/15/23 Ciprofloxacin HCl/Dexameth (Ciprodex Otic Suspension) 0.3 %-0.1 % Soln 7.5 ML OT BID for 7 Days, #1 EA Prov: RHYS SIMMONS DO 03/15/23 Scopolamine (Transderm-Scop) 1 Mg/3 Day Patch.td72 1 EACH TD Q72H, #3 PATCH Prov: RHYS SIMMONS DO 03/15/23 Meclizine HCl (Meclizine HCl) 25 Mg Tablet 50 MG PO Q6 PRN for DIZZINESS, #15 TAB Prov: RHYS SIMMONS DO 03/15/23 BLACK MORTENSEN MD Mar 15, 2023 16:59 RHYS SIMMONS DO Mar 15, 2023 18:09
[2023-03-15] MEDS ORDERED: MECLIZINE 25 MG (ANTIVERT) TAB PO ONE (17:15)
[2023-03-15 17:21] LABS: EOSINOPHILS % (AUTO) 1 % (0-10); HEMOGLOBIN 14.3 g/dL (13.3-17.7)
[2023-03-15 17:23] LABS: BASOPHILS % (AUTO) 1 % (0-10); HEMATOCRIT 42 % (40-54); LYMPHOCYTES # (AUTO) 1.1 10^3/uL (1.0-4.0); LYMPHOCYTES % (AUTO) 23 % (12-44); MEAN CORPUSCULAR HEMOGLOBIN 30 pg (25-34); MEAN CORPUSCULAR HGB CONC 34 g/dL (32-36); MEAN CORPUSCULAR VOLUME 88 fL (80-99); MEAN PLATELET VOLUME 13.7 fL (9.0-12.2); MONOCYTES # (AUTO) 0.4 10^3/uL (0.0-1.0); MONOCYTES % (AUTO) 10 % (0-12); NEUTROPHILS % (AUTO) 66 % (42-75); PLATELET COUNT 122 10^3/uL (130-400); WHITE BLOOD COUNT 4.6 10^3/uL (4.3-11.0)
[2023-03-15 17:30] LABS: POTASSIUM 3.6 MMOL/L (3.6-5.0)
[2023-03-15 17:31] LABS: CALCIUM 8.9 MG/DL (8.5-10.1)
[2023-03-15 17:35] LABS: CREATININE SERUM 0.97 MG/DL (0.60-1.30)
--- NOTE | 2023-03-15 18:46 | Diagnostic Imaging Report ---
PROCEDURE: CT head without contrast. TECHNIQUE: Multiple contiguous axial images were obtained through the brain without the use of intravenous contrast. Auto Exposure Controls were utilized during the CT exam to meet ALARA standards for radiation dose reduction. INDICATION: 67-year-old male, dizziness, history of previous stroke 2017. Hypertensive. CORRELATION STUDY: CT IAC 04/05/2021. FINDINGS: Ventricles and sulci are age-appropriate with generalized atrophic changes. There are scattered areas of decreased attenuation likely owing to chronic small vessel ischemic disease. No appreciable midline shift or mass effect. No intracranial hemorrhage. Intracranial vascular calcification without evidence for asymmetric hyperdense intrarenal vascular sign. Similar to prior CT IAC imaging of nearly two years ago, there is opacification and destructive change of the left mastoids with abnormal soft tissue opacification of the mastoids extending into the middle ear cavity and external auditory canal. Overall extent of destruction is likely relatively stable and perhaps decreased in quantity of soft tissue component. The mandibular condyle is subluxed anteriorly out of the temporal fossa. The remainder of the paranasal sinuses are generally clear. IMPRESSION: 1. Negative for acute intracranial abnormality. 2. Again, demonstration of rather extensive destructive changes of soft tissue mass at the left mastoid and temporal bone. Consistent with previous history of left ear cholesteatoma. This appears resolved and subluxation of the left temporomandibular joint. Dictated by: Dictated on workstation # [id number]
[2023-03-15] MEDS ORDERED: RX-NAPROXEN (NAPROSYN) 250 MG TAB PPK#4 PO STA (19:22)
[2023-03-15] MEDS ORDERED: RX-MECLIZINE HCL (ANTIVERT) 25 MG TAB #4 PPK PO STA (19:22)
[2023-03-15] MEDS ORDERED: SCOP1PAT10 TD (19:26)
[2023-03-15] MEDS ORDERED: NF-CIPDEC OT (19:26)
[2023-03-15] MEDS ORDERED: NAPR500T8 PO (19:26)
[2023-03-15] MEDS ORDERED: MECL-149 PO (19:26)
[2023-03-15] MEDS ORDERED: SCOPOLAMINE 1.5 MG (TRANSDERM-SCOP) PATCH TD ONE (19:30)
[2023-03-15] MEDS ORDERED: KETOROLAC 30 MG/ML VIAL IVP ONE (19:30)
[2023-03-15 19:50] VITALS: BP 179/108
[2023-03-15] MEDS ORDERED: NEOMY/POLYM/HC (CORTISPORIN) 10 ML BTL OT SCH (21:00)
== END 2023-03-15 19:50 | disposition home or self-care (01) ==
LOC: EDUNIT# 15:47 → ER 15:49
DX: H71.02 Cholesteatoma of attic, left ear (principal); M26.69 Other specified disorders of temporomandibular joint; E11.9 Type 2 diabetes mellitus without complications; G89.29 Other chronic pain; M54.41 Lumbago with sciatica, right side
CPT/HCPCS: 36415; 70450; 80048; 85025; 93005

== ENCOUNTER 2023-04-14 11:15 | Inpatient (IN) | payer MEDICAID ==
[~2023-04-14] VITALS: Ht 182.9 cm; Wt 118.6 kg
[~2023-04-14 11:15] MED LIST changes: +MECL-149 PO; +NAPR500T8 PO; +NF-CIPDEC OT; +SCOP1PAT10 TD
[2023-04-14 11:32] LABS: MEAN CORPUSCULAR VOLUME 85 fL (80-99); MONOCYTES % (AUTO) 9 % (0-12)
[2023-04-14 11:34] LABS: BASOPHILS % (AUTO) 1 % (0-10); EOSINOPHILS % (AUTO) 0 % (0-10); HEMATOCRIT 40 % (40-54); HEMOGLOBIN 13.5 g/dL (13.3-17.7); LYMPHOCYTES # (AUTO) 1.2 10^3/uL (1.0-4.0); LYMPHOCYTES % (AUTO) 26 % (12-44); MEAN CORPUSCULAR HEMOGLOBIN 29 pg (25-34); MEAN CORPUSCULAR HGB CONC 34 g/dL (32-36); MONOCYTES # (AUTO) 0.4 10^3/uL (0.0-1.0); NEUTROPHILS # (AUTO) 2.9 10^3/uL (1.8-7.8); NEUTROPHILS % (AUTO) 63 % (42-75); PLATELET COUNT 81 10^3/uL (130-400); WHITE BLOOD COUNT 4.6 10^3/uL (4.3-11.0)
--- NOTE | 2023-04-14 11:40 | ED Abdominal Pain ---
General Chief Complaint: Abdominal/GI Problems Stated Complaint: ABD PAIN Nursing Triage Note: PATIENT IS BROUGHT VIA [employer] [facility]. EMS ON BLS FOR CONSTIPATION AND ABD. PAIN. PER PATIENT LAST BM WAS ABOUT 3-4 DAYS AGO. DENIES NAUSEA. RIGHT SIDED DEFICITS FROM STROKE IN 2017.FAMILY IN THE ROOM WITH PATIENT. Source of Information: Patient, Family Exam Limitations: No Limitations History of Present Illness Date Seen by Provider: Apr 14, 2023 Time Seen by Provider: 11:18 Initial Comments 67-year-old male presents to the ER via EMS for abdominal pain, abdominal diste ntion, and weakness. Patient's uqfznk-zv-nmx reports that patient has been complaining of lower abdominal pain for the past 2 days. She reports that today she noticed his abdomen was distended. She reports that he often has difficulty walking due to previous stroke, but states that today he was very weak and they had to give him significant help. Patient reports he is still passing gas, but states his last bowel movement was 3 to 4 days ago. Denies fevers, shortness of air, nausea, vomiting, diarrhea. He is supposed to wear 2 L of oxygen at all times, when he arrived he was not on oxygen and his O2 saturation was 84%. Patient denies any shortness of air. Patient's oxygen saturation returned to normal after applying oxygen via nasal cannula. Patient lives with his brother and hclskr-gl-zwd. Allergies and Home Medications Allergies Coded Allergies: No Known Drug Allergies (Unverified , 04/14/23) Patient Home Medication List Home Medication List Reviewed: Yes Aspirin (Aspirin EC) 325 Mg Tablet.dr, 325 MG PO DAILY Prescribed by: LOLI MARTE on 06/30/17 1135 Ciprofloxacin HCl (Ciprofloxacin HCl) 2.5 Ml Drops, 2 DROPS LEFT EAR BID, (Reported) Entered as Reported by: DAVID IVAN on 06/29/17 1625 Ciprofloxacin HCl/Dexameth (Ciprodex Otic Suspension) 0.3 %-0.1 % Soln, 7.5 ML OT BID Prescribed by: RHYS SIMMONS on 03/15/23 192 Clindamycin HCl (Clindamycin HCl) 300 Mg Capsule, 300 MG PO TID, (Reported) Entered as Reported by: DAVID IVAN on 06/29/17 162 Ibuprofen (Advil) 200 Mg Tablet, 800 MG PO TID PRN for PAIN-MILD, (Reported) Entered as Reported by: JOHANNY SOMMER on 06/26/17 09 Meclizine HCl (Meclizine HCl) 25 Mg Tablet, 50 MG PO Q6 PRN for DIZZINESS Prescribed by: RHYS SIMMONS on 03/15/231925 Naproxen (Naproxen) 500 Mg Tablet.dr, 500 MG PO BID Prescribed by: RHYS SIMMONS on 03/15/231925 Paliperidone Palmitate (Invega Trinza) 546 Mg/1.75 Ml Syringe, 546 MG IM EVERY 12 WEEKS, (Reported) Entered as Reported by: JOHANNY SOMMER on 06/26/17902 Scopolamine (Transderm-Scop) 1 Mg/3 Day Patch.td72, 1 EACH TD Q72H Prescribed by: RHYS SIMMONS on 03/15/231925 Sulfamethoxazole/Trimethoprim (Sulfamethoxazole-Tmp Ds Tablet) 1 Each Tablet, 1 TAB PO BID, (Reported) Entered as Reported by: DAVID IVAN on 06/29/17 1625 Review of Systems Review of Systems Constitutional: see HPI Past Bmbgafq-Lyjxnr-Nqzlby Hx Patient Social History Tobacco Use?: Yes Tobacco type used: Cigarettes Smoking Status: Current Someday Smoker Substance use?: Yes Substance type: Marijuana Substance frequency: Rarely Alcohol Use?: Yes Alcohol type: Beer Alcohol Frequency: Rarely Immunizations Up To Date Tetanus Booster (TDap): More than 5yrs First/Initial COVID19 Vaccinat: 2020 Second COVID19 Vaccination Alon: 2020 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 MENTALLY CHALLENGED ?--FROM DRUG USE AND OR/INJURY PER FAMILY) Sexually Transmitted Disease: No HIV/AIDS: No Genitourinary: No Gastrointestinal: No Musculoskeletal: No Endocrine: Yes Diabetes, Non-Insulin dep HEENT: Yes Chronic Ear Infection Hearing Impairment: Denies Cancer: No Psychosocial: Yes Anxiety, Bipolar, Depression Integumentary: No Blood Disorders: No Family Medical History Myocardial infarction 19 FATHER, Onset:Unknown Physical Exam Vital Signs Vital Signs - First Documented 04/14/23 11:19 Pulse 65 Resp 18 B/P (MAP) 113/76 (88) Pulse Ox 84 O2 Delivery Room Air Capillary Refill : Less Than 3 Seconds Height/Weight/BMI Height: 6'3.00" Weight: 237lbs. 4.0oz. 107.635008iz; 32.00 BMI Method:Stated General Appearance: WD/WN, no apparent distress Neck: supple, normal inspection Respiratory: lungs clear, no respiratory distress, no accessory muscle use, decreased breath sounds Cardiovascular: regular rate, rhythm Gastrointestinal: soft, abnormal bowel sounds (Hypoactive), tenderness (Tenderness bilateral lower quadrants) Extremities: normal range of motion, non-tender, normal inspection, no pedal edema Back: normal inspection Neurologic/Psychiatric: alert, normal mood/affect Skin: normal color, warm/dry Progress/Results/Core Measures Results/Orders Lab Results Laboratory Tests Test 04/14/23 11:25 04/14/23 13:33 Range/Units White Blood Count 4.6 4.3-11.0 10^3/uL Red Blood Count 4.72 4.30-5.52 10^6/uL Hemoglobin 13.5 13.3-17.7 g/dL Hematocrit 40 40-54 % Mean Corpuscular Volume 85 80-99 fL Mean Corpuscular Hemoglobin 29 25-34 pg Mean Corpuscular Hemoglobin Concent 34 32-36 g/dL Red Cell Distribution Width 17.9 H 10.0-14.5 % Platelet Count 81 L 130-400 10^3/uL Mean Platelet Volume 9.0-12.2 fL Immature Granulocyte % (Auto) 0 % Neutrophils (%) (Auto) 63 42-75 % Lymphocytes (%) (Auto) 26 12-44 % Monocytes (%) (Auto) 9 0-12 % Eosinophils (%) (Auto) 0 0-10 % Basophils (%) (Auto) 1 0-10 % Neutrophils # (Auto) 2.9 1.8-7.8 10^3/uL Lymphocytes # (Auto) 1.2 1.0-4.0 10^3/uL Monocytes # (Auto) 0.4 0.0-1.0 10^3/uL Eosinophils # (Auto) 0.0 0.0-0.3 10^3/uL Basophils # (Auto) 0.0 0.0-0.1 10^3/uL Immature Granulocyte # (Auto) 0.0 0.0-0.1 10^3/uL Percent Immature Platelet Fraction 15.9 H 0.0-7.6 % Sodium Level 142 135-145 MMOL/L Potassium Level 3.0 L 3.6-5.0 MMOL/L Chloride Level 101 98-107 MMOL/L Carbon Dioxide Level 30 21-32 MMOL/L Anion Gap 11 5-14 MMOL/L Blood Urea Nitrogen 24 H 7-18 MG/DL Creatinine 1.14 0.60-1.30 MG/DL Estimat Glomerular Filtration Rate 70 BUN/Creatinine Ratio 21 Glucose Level 67 L 70-105 MG/DL Calcium Level 8.9 8.5-10.1 MG/DL Corrected Calcium 9.5 8.5-10.1 MG/DL Total Bilirubin 3.9 H 0.1-1.0 MG/DL Aspartate Amino Transf (AST/SGOT) 32 5-34 U/L Alanine Aminotransferase (ALT/SGPT) 14 0-55 U/L Alkaline Phosphatase 175 H 40-136 U/L B-Type Natriuretic Peptide 269.4 H <100.0 PG/ML Total Protein 7.0 6.4-8.2 GM/DL Albumin 3.2 3.2-4.5 GM/DL Lipase 20 8-78 U/L Urine Color ORANGE Urine Clarity CLEAR Urine pH 6.0 5-9 Urine Specific [place] 1.010 L 1.016-1.022 Urine Protein NEGATIVE NEGATIVE Urine Glucose (UA) NEGATIVE NEGATIVE Urine Ketones NEGATIVE NEGATIVE Urine Nitrite NEGATIVE NEGATIVE Urine Bilirubin 1+ H NEGATIVE Urine Urobilinogen >=8.0 < = 1.0 MG/DL Urine Leukocyte Esterase TRACE H NEGATIVE Urine RBC (Auto) NEGATIVE NEGATIVE Urine RBC NONE /HPF Urine WBC 0-2 /HPF Urine Squamous Epithelial Cells 0-2 /HPF Urine Crystals NONE /LPF Urine Bacteria TRACE /HPF Urine Casts NONE /LPF Urine Mucus SMALL H /LPF Urine Culture Indicated NO My Orders Orders - JOSÉ CISNEROS APRN Comprehensive Metabolic Panel (04/14/23 11:20) Lipase (04/14/23 11:20) Ua Culture If Indicated (04/14/23 11:20) Ed Iv/Invasive Line Start (04/14/23 11:20) Cbc With Automated Diff (04/14/23 11:20) Ct Abdomen/Pelvis W (04/14/23 11:31) Fentanyl Inj (Sublimaze Injection) (04/14/23 11:45) Ns Iv 1000 Ml (Sodium Chloride 0.9%) (04/14/23 11:45) Iohexol Injection (Omnipaque 350 Mg/Ml 1 (04/14/23 12:00) Received Contrast (Hold Metformin- Contr (04/14/23 12:00) Ns (Ivpb) (Sodium Chloride 0.9% Ivpb Bag (04/14/23 12:00) Chest 1 View, Ap/Pa Only (04/14/23 12:20) Furosemide Injection (Lasix Injection) (04/14/23 13:00) Potassium Chloride (Tablet) (K Dur Table (04/14/23 13:00) Bnp Tootie (04/14/23 13:22) Ed Admission (Communication) (04/14/23 14:16) Medications Given in ED Current Medications Medications Dose Ordered Sig/Ernestina Route Start Time Stop Time Status Last Admin Dose Admin Fentanyl Citrate 50 mcg ONCE ONCE IVP 04/14/23 11:45 04/14/23 11:46 DC 04/14/23 11:57 50 MCG Furosemide 40 mg ONCE ONCE IVP 04/14/23 13:00 04/14/23 13:01 DC 04/14/23 12:56 40 MG Iohexol 80 ml ONCE ONCE IV 04/14/23 12:00 04/14/23 12:01 DC 04/14/23 11:52 80 ML Potassium Chloride 40 meq ONCE ONCE PO 04/14/23 13:00 04/14/23 13:01 DC 04/14/23 12:56 40 MEQ Sodium Chloride 100 ml ONCE ONCE IV 04/14/23 12:00 04/14/23 12:01 DC 04/14/23 11:52 80 ML Vital Signs/I&O 04/14/23 11:19 Pulse 65 Resp 18 B/P (MAP) 113/76 (88) Pulse Ox 84 O2 Delivery Room Air Blood Pressure Mean: 88 Progress Progress Note : Progress Note Patient seen and evaluated, resting comfortably in bed, no acute distress. Based on exam and symptoms, work-up initiated included CBC, CMP, lipase, UA, CT abdomen pelvis. IV fluids and fentanyl ordered. 1322 Labs and imaging reviewed. CBC grossly normal. CMP shows decreased potassium 3.0, elevated BUN 24, glucose 67. Abdominal CT shows moderate to large abdominal and pelvic nonloculated intraperitoneal fluid. It shows small nonloculated pleural effusion. No abnormal fecal loading, no bowel, biliary, or urinary tract obstruction. Also shows extensive atherosclerotic vascular disease, nonaneurysmal. Chest x-ray shows stable cardiomegaly with mild pulmonary vascular congestion centrally. Mild atelectasis or scarring and/or minimal pulmonary venous congestion involving the lung bases. BNP added on. Oral potassium replacement ordered. IV Lasix ordered for excess fluid. 1357 BNP elevated to 269.4. I called and spoke with Dr. Ruff, hospitalist, regarding admission for anasarca. She agrees to admit patient. She would like me to place bridge orders. Diagnostic Imaging Diagonstic Imaging: CT Plain Films/CT/US/NM/MRI: abdomen, pelvis Comments [facility] [place] [place] NAME: SONIDO DE LA CRUZ [facility] REC#: [id number] PT STATUS: REG ER : 1955 PHYSICIAN: JOSÉ CISNEROS APRN ADMIT DATE: 04/14/23/ER Draft Date of Exam:04/14/23 CT ABDOMEN/PELVIS W PROCEDURE: CT abdomen and pelvis with contrast. TECHNIQUE: Multiple contiguous axial images were obtained through the abdomen and pelvis after administration of intravenous contrast. Auto Exposure Controls were utilized during the CT exam to meet ALARA standards for radiation dose reduction. All CT scans use one or more of the following dose optimizing techniques: automated exposure control, MA and/or KvP adjustment based on patient size and exam type or iterative reconstruction. INDICATION: Abdominal pain, constipation. COMPARISON: Correlation is made with a CT angiographic study performed in 2017. FINDINGS: The visible portions of the heart are enlarged. There are small nonloculated pleural effusions. There is diffuse integumentary and body wall edema and there is a moderate to large volume of abdominal/pelvic nonloculated intraperitoneal fluid. There is some dependent basilar partial atelectasis. The liver and spleen are nonfocal. The gallbladder is unremarkable. The adrenals and pancreas are unremarkable. The kidneys are unobstructed. There are diffuse aortoiliac and mesenteric atherosclerotic vascular calcifications without aneurysm. There is no hydroureteronephrosis. The urinary bladder is unremarkable. The unobstructed kidneys are unremarkable. There is no abdominal/pelvic mesenteric or retroperitoneal lymphadenopathy. There is no pathological fecal loading. No impaction or bowel obstruction. No pneumatosis or free gas. No perienteric or pericolonic edema. No focal inflammatory changes. The bony structures are nonacute. IMPRESSION: 1. Third spaced fluids as described but no loculated collection. The heart is enlarged, correlate for failure. 2. No abnormal fecal loading. No bowel, biliary, or urinary tract obstruction. 3. Extensive atherosclerotic vascular disease, nonaneurysmal. Dictated on workstation # [id number] Dict: 04/14/23 1202 Trans: 04/14/23 1212 [id number] Interpreted by: MIGDALIA LANE Electronically signed by: Starrgomeeta Imaging: Xray Plain Films/CT/US/NM/MRI: chest Comments [facility]. [place] [place] NAME: SONIDO DE LA CRUZ [facility] REC#: [id number] PT STATUS: REG ER : 1955 PHYSICIAN: JOSÉ CISNEROS APRN ADMIT DATE: 04/14/23/ER Draft Date of Exam:04/14/23 CHEST 1 VIEW, AP/PA ONLY Clinical indications: Patient with constipation and abdominal pain. Patient's history of stroke with right-sided deficit. EXAM: Portable chest x-ray upright view. COMPARISON: Chest x-ray dated 06/29/2017. FINDINGS: There is stable cardiomegaly with minimal pulmonary vascular prominence centrally. There is increased lung markings involving both lung bases which may be related to atelectasis or scarring and/or minimal vascular congestion. There is no pleural effusion or pneumothorax. IMPRESSION: 1:Stable cardiomegaly with mild pulmonary vascular congestion centrally. 2: Is mild atelectasis or scarring and/or minimal pulmonary venous congestion involving the lung bases. Dictated on workstation # [id number] Dict: 04/14/23 1258 Trans: 04/14/23 1306 [facility] [id number] Interpreted by: RICCO VELASQUEZ MD Electronically signed by: Departure Communication (Admissions) Time/Spoke to Admitting Phy: 13:57 Dr. Ruff, hospitalist. Impression Primary Impression: Anasarca Additional Impressions: Hypokalemia Weakness Disposition: ADMITTED INPATIENT Condition: Stable Admissions Decision to Admit Reason: Admit from ER (General) Decision to Admit/Date: Apr 14, 2023 Time/Decision to Admit Time: 13:57 Departure-Patient Inst. Referrals: CHRISTINA LATHAM DO (PCP) Primary Care Physician [facility] (Family) Primary Care Physician JOSÉ CISNEROS APRN Apr 14, 2023 11:40
[2023-04-14] MEDS ORDERED: fentaNYL INJ 100 MCG/2 ML AMP IVP ONE (11:45)
[2023-04-14] MEDS ORDERED: NS IV 1000 ML 1,000 ML IV SCH (11:45)
[2023-04-14 11:49] LABS: ALBUMIN 3.2 GM/DL (3.2-4.5)
[2023-04-14 11:51] LABS: CALCIUM 8.9 MG/DL (8.5-10.1)
[2023-04-14 11:53] LABS: BILIRUBIN,TOTAL 3.9 MG/DL (0.1-1.0)
[2023-04-14 11:55] LABS: CREATININE SERUM 1.14 MG/DL (0.60-1.30)
[2023-04-14] MEDS ORDERED: NS 100 ML (IVPB) BAG IV ONE (12:00)
[2023-04-14] MEDS ORDERED: HOLD METFORMIN - RECEIVED CONTRAST 20 ML VIAL IV SCH (12:00)
[2023-04-14] MEDS ORDERED: IOHEXOL 350 MG/ML 100 ML (OMNIPAQUE 350) VIAL IV ONE (12:00)
--- NOTE | 2023-04-14 12:13 | Diagnostic Imaging Report ---
PROCEDURE: CT abdomen and pelvis with contrast. TECHNIQUE: Multiple contiguous axial images were obtained through the abdomen and pelvis after administration of intravenous contrast. Auto Exposure Controls were utilized during the CT exam to meet ALARA standards for radiation dose reduction. All CT scans use one or more of the following dose optimizing techniques: automated exposure control, MA and/or KvP adjustment based on patient size and exam type or iterative reconstruction. INDICATION: Abdominal pain, constipation. COMPARISON: Correlation is made with a CT angiographic study performed in 2017. FINDINGS: The visible portions of the heart are enlarged. There are small nonloculated pleural effusions. There is diffuse integumentary and body wall edema and there is a moderate to large volume of abdominal/pelvic nonloculated intraperitoneal fluid. There is some dependent basilar partial atelectasis. The liver and spleen are nonfocal. The gallbladder is unremarkable. The adrenals and pancreas are unremarkable. The kidneys are unobstructed. There are diffuse aortoiliac and mesenteric atherosclerotic vascular calcifications without aneurysm. There is no hydroureteronephrosis. The urinary bladder is unremarkable. The unobstructed kidneys are unremarkable. There is no abdominal/pelvic mesenteric or retroperitoneal lymphadenopathy. There is no pathological fecal loading. No impaction or bowel obstruction. No pneumatosis or free gas. No perienteric or pericolonic edema. No focal inflammatory changes. The bony structures are nonacute. IMPRESSION: 1. Third spaced fluids as described but no loculated collection. The heart is enlarged, correlate for failure. 2. No abnormal fecal loading. No bowel, biliary, or urinary tract obstruction. 3. Extensive atherosclerotic vascular disease, nonaneurysmal. Dictated by: Dictated on workstation # [id number]
[2023-04-14] MEDS ORDERED: KCL 20 MEQ TAB (K-DUR) PO ONE ×2 (13:00→17:45)
[2023-04-14] MEDS ORDERED: FUROSEMIDE 40 MG/4 ML INJ (LASIX) IVP ONE (13:00)
--- NOTE | 2023-04-14 13:06 | Diagnostic Imaging Report ---
Clinical indications: Patient with constipation and abdominal pain. Patient's history of stroke with right-sided deficit. EXAM: Portable chest x-ray upright view. COMPARISON: Chest x-ray dated 06/29/2017. FINDINGS: There is stable cardiomegaly with minimal pulmonary vascular prominence centrally. There is increased lung markings involving both lung bases which may be related to atelectasis or scarring and/or minimal vascular congestion. There is no pleural effusion or pneumothorax. IMPRESSION: 1:Stable cardiomegaly with mild pulmonary vascular congestion centrally. 2: Is mild atelectasis or scarring and/or minimal pulmonary venous congestion involving the lung bases. Dictated by: Dictated on workstation # [id number]
[2023-04-14 13:44] LABS: CLARITY,URINE CLEAR; COLOR,URINE ORANGE; GLUCOSE, URINE (UA) NEGATIVE (NEGATIVE); KETONES,URINE NEGATIVE (NEGATIVE); LEUKOCYTE ESTERASE ,URINE TRACE (NEGATIVE); NITRITE,URINE NEGATIVE (NEGATIVE); PROTEIN,URINE NEGATIVE (NEGATIVE)
[2023-04-14 13:54] LABS: BACTERIA,URINE TRACE /HPF; BILIRUBIN,URINE 1+ (NEGATIVE); SQUAMOUS EPITHELIAL CELL,UR 0-2 /HPF; WBC,URINE 0-2 /HPF
[2023-04-14 14:50] VITALS: BP 118/67
[2023-04-14] MEDS ORDERED: HYDROcodone/ACETAMINOPHEN 5 MG/325 MG TABLET PO PRN (16:45)
[2023-04-14] MEDS ORDERED: KCL 20 MEQ TAB (K-DUR) PO NR ×2 (18:00→21:00)
--- NOTE | 2023-04-14 18:24 | History & Physical ---
HPI History of Present Illness: Pt states his legs went out from under him on Thursday and he has had stomach cramping and constipation, last BM 3 days ago. No nausea, vomiting. No fever. Denies history of liver problems or stomach problems in the past. He admits shortness of breath sometimes when he talks. Denies heart problems. Admits cough, nonproductive. States he normally walks independently. Lives with sister in law and brother. He does report wearing supplemental oxygen at night, he doesn't know how much. Source: patient Exam Limitations: clinical condition Date seen by provider: Apr 14, 2023 Time Seen by Provider: 18:21 Attending Physician Magdalena Odonnell DO PCP Admitting Physician: Bertram Ruff MD Attending Physician: Bertram Ruff MD Consult Date of Admission Apr 14, 2023 at 14:46 Home Medications Home Medications Reviewed patient Home Medication Reconciliation performed by pharmacy medication reconciliations headend technician and/or nursing. Patients Allergies have been reviewed. 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30-5.52 10^6/uL Hemoglobin 13.5 13.3-17.7 g/dL Hematocrit 40 40-54 % Mean Corpuscular Volume 85 80-99 fL Mean Corpuscular Hemoglobin 29 25-34 pg Mean Corpuscular Hemoglobin Concent 34 32-36 g/dL Red Cell Distribution Width 17.9 H 10.0-14.5 % Platelet Count 81 L 130-400 10^3/uL Mean Platelet Volume 9.0-12.2 fL Immature Granulocyte % (Auto) 0 % Neutrophils (%) (Auto) 63 42-75 % Lymphocytes (%) (Auto) 26 12-44 % Monocytes (%) (Auto) 9 0-12 % Eosinophils (%) (Auto) 0 0-10 % Basophils (%) (Auto) 1 0-10 % Neutrophils # (Auto) 2.9 1.8-7.8 10^3/uL Lymphocytes # (Auto) 1.2 1.0-4.0 10^3/uL Monocytes # (Auto) 0.4 0.0-1.0 10^3/uL Eosinophils # (Auto) 0.0 0.0-0.3 10^3/uL Basophils # (Auto) 0.0 0.0-0.1 10^3/uL Immature Granulocyte # (Auto) 0.0 0.0-0.1 10^3/uL Percent Immature Platelet Fraction 15.9 H 0.0-7.6 % Sodium Level 142 135-145 MMOL/L Potassium Level 3.0 L 3.6-5.0 MMOL/L Chloride Level 101 98-107 MMOL/L Carbon Dioxide Level 30 21-32 MMOL/L Anion Gap 11 5-14 MMOL/L Blood Urea Nitrogen 24 H 7-18 MG/DL Creatinine 1.14 0.60-1.30 MG/DL Estimat Glomerular Filtration Rate 70 BUN/Creatinine Ratio 21 Glucose Level 67 L 70-105 MG/DL Calcium Level 8.9 8.5-10.1 MG/DL Corrected Calcium 9.5 8.5-10.1 MG/DL Total Bilirubin 3.9 H 0.1-1.0 MG/DL Aspartate Amino Transf (AST/SGOT) 32 5-34 U/L Alanine Aminotransferase (ALT/SGPT) 14 0-55 U/L Alkaline Phosphatase 175 H 40-136 U/L B-Type Natriuretic Peptide 269.4 H <100.0 PG/ML Total Protein 7.0 6.4-8.2 GM/DL Albumin 3.2 3.2-4.5 GM/DL Lipase 20 8-78 U/L Urine Color ORANGE Urine Clarity CLEAR Urine pH 6.0 5-9 Urine Specific [place] 1.010 L 1.016-1.022 Urine Protein NEGATIVE NEGATIVE Urine Glucose (UA) NEGATIVE NEGATIVE Urine Ketones NEGATIVE NEGATIVE Urine Nitrite NEGATIVE NEGATIVE Urine Bilirubin 1+ H NEGATIVE Urine Urobilinogen >=8.0 < = 1.0 MG/DL Urine Leukocyte Esterase TRACE H NEGATIVE Urine RBC (Auto) NEGATIVE NEGATIVE Urine RBC NONE /HPF Urine WBC 0-2 /HPF Urine Squamous Epithelial Cells 0-2 /HPF Urine Crystals NONE /LPF Urine Bacteria TRACE /HPF Urine Casts NONE /LPF Urine Mucus SMALL H /LPF Urine Culture Indicated NO Radiology CT abd/pelvis 04/14: IMPRESSION: 1. Third spaced fluids as described but no loculated collection. The heart is enlarged, correlate for failure. 2. No abnormal fecal loading. No bowel, biliary, or urinary tract obstruction. 3. Extensive atherosclerotic vascular disease, nonaneurysmal. CXR 04/14: IMPRESSION: 1:Stable cardiomegaly with mild pulmonary vascular congestion centrally. 2: Is mild atelectasis or scarring and/or minimal pulmonary venous congestion involving the lung bases. Physical Exam-([facility]) Physical Exam Vital Signs VS - Last 72 Hours, by Label 04/14/23 04/14/23 04/14/23 04/14/23 11:19 14:50 16:17 19:58 Temp 35.0 37.0 Pulse 65 68 74 Resp 18 18 18 B/P (MAP) 113/76 (88) 118/67 (84) 120/76 (91) Pulse Ox 84 92 92 90 O2 Delivery Room Air Nasal Cannula Nasal Cannula Nasal Cannula O2 Flow Rate 2.00 2.00 2.00 Capillary Refill : Less Than 3 Seconds General Appearance: WD/WN, no apparent distress HEENT: PERRL/EOMI Respiratory: other (end expiratory wheeze) Cardiovascular: regular rate, rhythm Gastrointestinal: normal bowel sounds, soft, other (mild ttp right lower quadrant) Extremities: pedal edema Neurologic/Psychiatric: alert, oriented x 3; No motor weakness; other (speech somewhat difficult to understand, slightly uneven smile with right lower, otherwise normal CN testing) Skin: warm/dry Assessment/Plan Assessment/Plan Admission Status: Observation (1) Anasarca Assessment & Plan: IV lasix started, has elevated BNP and echo in 2020 with decreased EF, will repeat echo. (2) Elevated bilirubin Status: Acute Assessment & Plan: Check hepatitis panel and liver ultrasound. (3) Hypokalemia Assessment & Plan: Replace and follow (4) Type 2 diabetes mellitus with unspecified complications Assessment & Plan: Diabetic diet, sliding scale insulin as needed. (5) Schizophrenia Status: Chronic (6) Thrombocytopenia Status: Acute Assessment & Plan: Suspect liver dysfunction given elevated bili and alk phos and marked edema. Monitor closely. (7) History of stroke Status: Chronic (8) Constipation Status: Acute Assessment & Plan: Miralax (9) DVT prophylaxis Assessment & Plan: Enoxaparin BERTRAM RUFF MD Apr 14, 2023 18:24
[2023-04-14 19:58] VITALS: BP 120/76
[2023-04-14] MEDS: polyethylene glycoL POWDER 17 GM (MIRALAX) PACK PO SCH (22:33)
[2023-04-14] MEDS: ENOXAPARIN 40 MG/0.4 ML (LOVENOX) SYR SQ SCH (22:34)
[2023-04-14 23:25] VITALS: BP 131/70
[2023-04-15 03:40] VITALS: BP_SYST 109; BP_SYST 125; BP_DIAS 65; BP_DIAS 77
[2023-04-15 05:49] LABS: EOSINOPHILS # (AUTO) 0.1 10^3/uL (0.0-0.3); EOSINOPHILS % (AUTO) 1 % (0-10); HEMOGLOBIN 12.9 g/dL (13.3-17.7)
[2023-04-15 05:51] LABS: BASOPHILS # (AUTO) 0.1 10^3/uL (0.0-0.1); BASOPHILS % (AUTO) 1 % (0-10); HEMATOCRIT 37 % (40-54); LYMPHOCYTES # (AUTO) 1.4 10^3/uL (1.0-4.0); LYMPHOCYTES % (AUTO) 32 % (12-44); MEAN CORPUSCULAR HEMOGLOBIN 29 pg (25-34); MEAN CORPUSCULAR HGB CONC 35 g/dL (32-36); MEAN CORPUSCULAR VOLUME 84 fL (80-99); MONOCYTES # (AUTO) 0.4 10^3/uL (0.0-1.0); MONOCYTES % (AUTO) 9 % (0-12); NEUTROPHILS # (AUTO) 2.6 10^3/uL (1.8-7.8); NEUTROPHILS % (AUTO) 56 % (42-75); PLATELET COUNT 77 10^3/uL (130-400); WHITE BLOOD COUNT 4.6 10^3/uL (4.3-11.0)
[2023-04-15] MEDS: inSUlin ASPART (NovoLOG) 1 UNIT/0.01 ML (CHARGE PER UNIT) SC SCH ×4 (05:56→20:37)
[2023-04-15 06:02] LABS: ALBUMIN 2.9 GM/DL (3.2-4.5); POTASSIUM 3.6 MMOL/L (3.6-5.0)
[2023-04-15 06:03] LABS: CALCIUM 8.8 MG/DL (8.5-10.1)
[2023-04-15 06:05] LABS: TOTAL PROTEIN 6.6 GM/DL (6.4-8.2)
[2023-04-15 06:06] LABS: BILIRUBIN,TOTAL 3.4 MG/DL (0.1-1.0)
[2023-04-15 06:08] LABS: CREATININE SERUM 1.06 MG/DL (0.60-1.30)
[2023-04-15 07:55] VITALS: BP_SYST 128; BP_SYST 135; BP_DIAS 76; BP_DIAS 78
[2023-04-15] MEDS: FUROSEMIDE 40 MG/4 ML INJ (LASIX) IVP SCH (08:42)
[2023-04-15 11:45] VITALS: BP 126/70
--- NOTE | 2023-04-15 11:51 | Diagnostic Imaging Report ---
PROCEDURE: US Hepatic (Liver). TECHNIQUE: Multiple real-time grayscale images were obtained over the right upper quadrant in various projections. INDICATION: Elevated liver enzymes. FINDINGS: Liver parenchyma is homogeneous with normal echotexture. Portal vein is patent with hepatopetal flow. Gallbladder is clear with no stones or wall thickening. The common duct is not dilated. The pancreas is obscured by bowel gas. Visualized portions of the aorta and IVC appear normal. Right kidney measures 9.9 cm in length and appears normal. There is a moderate amount of ascites present. IMPRESSION: There is a moderate amount of ascites present over the liver. The fluid has increased echogenicity that could be due to increased levels of protein, cellular and/or blood products in the fluid. Dictated by: Dictated on workstation # [id number]
[2023-04-15] MEDS ORDERED: PALI234D IM (15:15)
--- NOTE | 2023-04-15 15:18 | Progress Note ---
Subjective Subjective/Events-last exam Afebrile, patient denies concerns. States stomach is still hurting some. Objective Exam Last Set of Vital Signs Vital Signs Date Time Temp Pulse Resp B/P (MAP) Pulse Ox O2 Delivery O2 Flow Rate FiO2 04/15/23 11:45 36.5 70 18 126/70 (88) 95 Nasal Cannula 2.00 Capillary Refill : Less Than 3 Seconds I&O Intake and Output 04/15/23 00:00 Intake Total 1900 ml Output Total 1125 ml Balance 775 ml Intake Oral 900 ml IV Total 1000 ml Output Urine Total 1125 ml Daily Weight Change Yes, 14-23 lbs General: Alert, No Acute Distress Lungs: Clear to Auscultation Heart: Regular Rate Abdomen: Normal Bowel Sounds, Soft, No Tenderness Extremities: Other (trace pedal edema) Neuro: Other (speech difficult to understand) Psych/Mental Status: Mood NL Results/Procedures Lab Laboratory Tests 04/15/23 05:29: Glucometer 50*L 04/15/23 05:35: White Blood Count 4.6, Red Blood Count 4.45, Hemoglobin 12.9L, Hematocrit 37L, Mean Corpuscular Volume 84, Mean Corpuscular Hemoglobin 29, Mean Corpuscular Hemoglobin Concent 35, Red Cell Distribution Width 17.3H, Platelet Count 77L, Mean Platelet Volume , Immature Granulocyte % (Auto) 0, Neutrophils (%) (Auto) 56, Lymphocytes (%) (Auto) 32, Monocytes (%) (Auto) 9, Eosinophils (%) (Auto) 1, Basophils (%) (Auto) 1, Neutrophils # (Auto) 2.6, Lymphocytes # (Auto) 1.4, Monocytes # (Auto) 0.4, Eosinophils # (Auto) 0.1, Basophils # (Auto) 0.1, Immature Granulocyte # (Auto) 0.0, Percent Immature Platelet Fraction 14.1H, Sodium Level 141, Potassium Level 3.6, Chloride Level 103, Carbon Dioxide Level 29, Anion Gap 9, Blood Urea Nitrogen 21H, Creatinine 1.06, Estimat Glomerular Filtration Rate 76, BUN/Creatinine Ratio 20, Glucose Level 57*L, Calcium Level 8.8, Corrected Calcium 9.7, Total Bilirubin 3.4H, Aspartate Amino Transf (AST/SGOT) 35H, Alanine Aminotransferase (ALT/SGPT) 14, Alkaline Phosphatase 1 67H, Total Protein 6.6, Albumin 2.9L 04/15/23 06:14: Glucometer 80 04/15/23 10:20: Glucometer [address] abd/pelvis 04/14: IMPRESSION: 1. Third spaced fluids as described but no loculated collection. The heart is enlarged, correlate for failure. 2. No abnormal fecal loading. No bowel, biliary, or urinary tract obstruction. 3. Extensive atherosclerotic vascular disease, nonaneurysmal. CXR 04/14: IMPRESSION: 1:Stable cardiomegaly with mild pulmonary vascular congestion centrally. 2: Is mild atelectasis or scarring and/or minimal pulmonary venous congestion i nvolving the lung bases. Assessment/Plan Assessment/Plan (1) Anasarca Assessment & Plan: IV lasix started, has elevated BNP and echo in 2020 with decreased EF, repeat echo pending. (2) Elevated bilirubin Status: Acute Assessment & Plan: Hepatitis panel pending Liver US with moderate ascites with possible increased protein, cellular or blood. Discussed with him and his sister who is DPOA and they are agreeable to paracentesis. (3) Hypokalemia Status: Resolved Assessment & Plan: Replace and follow (4) Type 2 diabetes mellitus with unspecified complications Status: Chronic Assessment & Plan: Diabetic diet, sliding scale insulin as needed. (5) Schizophrenia Status: Chronic (6) Thrombocytopenia Status: Acute Assessment & Plan: Suspect liver dysfunction given elevated bili and alk phos and marked edema. Monitor closely. (7) History of stroke Status: Chronic (8) Constipation Status: Acute Assessment & Plan: Miralax (9) DVT prophylaxis Assessment & Plan: Enoxaparin BERTRAM BARKLEY MD Apr 15, 2023 15:18
[2023-04-15 15:29] VITALS: BP 101/65
[2023-04-15] MEDS ORDERED: LIDOCAINE 1% INJ 20 ML VIAL ONE (15:37)
--- NOTE | 2023-04-15 18:42 | Procedure/Intervention Note ---
Procedure Note Preoperative Date of Service: Apr 15, 2023 Time of Procedure: 18:10 Vital Signs Date Time Temp Pulse Resp B/P (MAP) Pulse Ox O2 Delivery O2 Flow Rate FiO2 04/15/23 15:29 36.0 68 18 101/65 (77) 98 Nasal Cannula 2.00 Indication Ascites Risk/Time Out Risk and benefits explained to patient or legal guardian, verbal and written consent given. Time out performed, verified correct patient, correct procedure, correct site, and consent documented. Technique Paracentesis: Bedside Ultrasound used to rory location The area was cleansed and draped in usual sterile fashion using chlorhexidine scrub. Anesthesia was achieved with 1% lidocaine. A small incision was made with scalpel in the skin. The paracentesis catheter with safety centesis needle was inserted and advanced with negative pressure until pink/yellow colored fluid was aspirated. In spite of initial small amount of fluid aspiration, further fluid was unable to be withdrawn in spite of repositioning catheter. The catheter was removed and no leaking or bleeding was noted. A bandaid was placed over the wound. The patient tolerated the procedure well without any immediate complications. Estimated blood loss was 1 ml. Prep/Sedation Prepartation: Chlorhexidine Estimated Blood Loss Bleeding: Minimal BERTRAM BARKLEY MD Apr 15, 2023 18:42
[2023-04-15 19:16] VITALS: BP 132/66
[2023-04-15 20:03] LABS: BODY FLUID RBC COUNT 0.092 10^6/uL; BODY FLUID WBC TOTAL COUNT 0.025 10^3/uL
[2023-04-15 20:10] LABS: BODY FLUID APPEARENCE MKD BLDY; BODY FLUID COLOR RED; BODY FLUID SOURCE PERITON
[2023-04-15 20:12] LABS: TOTAL PROTEIN,BODY FLUID < 0.8 G/DL
[2023-04-15 20:13] LABS: ALBUMIN,BODY FLUID < 0.4 G/DL
[2023-04-15] MEDS: ENOXAPARIN 40 MG/0.4 ML (LOVENOX) SYR SQ SCH (21:23)
[2023-04-15] MEDS: polyethylene glycoL POWDER 17 GM (MIRALAX) PACK PO SCH (21:23)
[2023-04-15 22:37] LABS: HEPATITIS C ANTIBODY C Reactive (Non-Reactive)
[2023-04-15 23:16] VITALS: BP 120/72
[2023-04-16 03:26] VITALS: BP 105/65
[2023-04-16] MEDS: inSUlin ASPART (NovoLOG) 1 UNIT/0.01 ML (CHARGE PER UNIT) SC SCH ×4 (05:17→20:14)
[2023-04-16 05:39] LABS: HEMOGLOBIN 12.9 g/dL (13.3-17.7)
[2023-04-16 05:41] LABS: HEMATOCRIT 37 % (40-54); MEAN CORPUSCULAR HEMOGLOBIN 29 pg (25-34); MEAN CORPUSCULAR HGB CONC 35 g/dL (32-36); MEAN CORPUSCULAR VOLUME 84 fL (80-99); PLATELET COUNT 76 10^3/uL (130-400); WHITE BLOOD COUNT 3.9 10^3/uL (4.3-11.0)
[2023-04-16 05:56] LABS: ALBUMIN 2.9 GM/DL (3.2-4.5); POTASSIUM 3.6 MMOL/L (3.6-5.0)
[2023-04-16 05:57] LABS: CALCIUM 8.5 MG/DL (8.5-10.1)
[2023-04-16 05:58] LABS: TOTAL PROTEIN 6.4 GM/DL (6.4-8.2)
[2023-04-16 06:02] LABS: CREATININE SERUM 1.15 MG/DL (0.60-1.30)
[2023-04-16 07:10] VITALS: BP 130/67
[2023-04-16] MEDS: FUROSEMIDE 40 MG/4 ML INJ (LASIX) IVP SCH (08:31)
[2023-04-16 11:02] VITALS: BP 127/70
--- NOTE | 2023-04-16 11:19 | Progress Note ---
Subjective Subjective/Events-last exam Afebrile, denies acute events, denies abdominal pain. He does not recall ever having history of hepatitis in the past. Objective Exam Last Set of Vital Signs Vital Signs Date Time Temp Pulse Resp B/P (MAP) Pulse Ox O2 Delivery O2 Flow Rate FiO2 04/16/23 11:02 36.4 87 18 127/70 (89) 94 Nasal Cannula 2.00 Capillary Refill : Less Than 3 Seconds I&O Intake and Output 04/16/23 00:00 Intake Total 2080 ml Output Total 1225 ml Balance 855 ml Intake Oral 2080 ml Output Urine Total 1225 ml # Voids 2 General: Alert Lungs: Clear to Auscultation, Normal Air Movement Heart: Regular Rate Abdomen: Normal Bowel Sounds, Soft, Other (mild ttp right side) Extremities: Other (trace edema) Neuro: Other (speech dysarthric) Results/Procedures Lab Laboratory Tests 04/15/23 15:32: Glucometer 79 04/15/23 18:20: Body Fluid Source PERITON, Body Fluid Color RED, Body Fluid Appearance MKD BLDY, Body Fluid WBC 0.025, Body Fluid RBC 0.092, Body Fl Polynuclear WBCs (%)(Auto) 36.0, Body Fluid Mononuclear Cells % Auto 64.0, Body Fluid Slide Review Yes, Body Fluid Total Protein < 0.8, Body Fluid Albumin < 0.4 04/15/23 20:18: Glucometer 89 04/16/23 05:05: Glucometer 61L 04/16/23 05:25: White Blood Count 3.9L, Red Blood Count 4.45, Hemoglobin 12.9L, Hematocrit 37L, Mean Corpuscular Volume 84, Mean Corpuscular Hemoglobin 29, Mean Corpuscular Hemoglobin Concent 35, Red Cell Distribution Width 17.2H, Platelet Count 76L, Mean Platelet Volume , Percent Immature Platelet Fraction 14.5H, Sodium Level 140, Potassium Level 3.6, Chloride Level 100, Carbon Dioxide Level 32, Anion Gap 8, Blood Urea Nitrogen 20H, Creatinine 1.15, Estimat Glomerular Filtration Rate 69, BUN/Creatinine Ratio 17, Glucose Level 70, Calcium Level 8.5, Corrected Calcium 9.4, Total Bilirubin 3.0H, Aspartate Amino Transf (AST/SGOT) 37H, Alanine Aminotransferase (ALT/SGPT) 14, Alkaline Phosphatase 187H, Total Protein 6.4, Albumin 2.9L 04/16/23 05:40: Glucometer 75 04/16/23 10:23: Glucometer [address] abd/pelvis 04/14: IMPRESSION: 1. Third spaced fluids as described but no loculated collection. The heart is enlarged, correlate for failure. 2. No abnormal fecal loading. No bowel, biliary, or urinary tract obstruction. 3. Extensive atherosclerotic vascular disease, nonaneurysmal. CXR 04/14: IMPRESSION: 1:Stable cardiomegaly with mild pulmonary vascular congestion centrally. 2: Is mild atelectasis or scarring and/or minimal pulmonary venous congestion involving the lung bases. Assessment/Plan Assessment/Plan (1) Anasarca Assessment & Plan: IV lasix started, has elevated BNP and echo in 2020 with decreased EF, repeat echo pending. Suspect liver failure due liver testing. Will add spironolactone and change furosemide to PO. (2) Elevated bilirubin Status: Acute Assessment & Plan: Hepatitis panel with positive Hep C antibody, will check viral load. Liver US with moderate ascites with possible increased protein, cellular or blood. Discussed with him and his sister who is DPOA and they are agreeable to paracentesis, this was attempted at bedside 04/15 and very small amount of fluid obtained. Low PMN count and SAAG 2.5, consistent with portal hypertension. (3) Hypokalemia Status: Resolved Assessment & Plan: Replace and follow (4) Type 2 diabetes mellitus with unspecified complications Status: Chronic Assessment & Plan: Diabetic diet, sliding scale insulin as needed. (5) Schizophrenia Status: Chronic (6) Thrombocytopenia Status: Acute Assessment & Plan: Suspect liver dysfunction given elevated bili and alk phos and marked edema. Monitor closely. (7) History of stroke Status: Chronic (8) Constipation Status: Acute Assessment & Plan: Miralax (9) DVT prophylaxis Assessment & Plan: Enoxaparin BERTRAM BARKLEY MD Apr 16, 2023 11:19
[2023-04-16 15:13] VITALS: BP 125/59
--- NOTE | 2023-04-16 15:21 | Physical Therapy Evaluation ---
PT Evaluation-General Medical Diagnosis Admission Date Apr 16, 2023 at 09:55 Medical Diagnosis: Ansarca, Hypokalemia Onset Date: Apr 16, 2023 Therapy Diagnosis Therapy Diagnosis: Gait deficit, strength deficit Height/Weight Height (Feet): 6 Height (Inches): 3.00 Weight (Pounds): 237 Weight (Ounces): 4.0 Precautions Precautions/Isolations: Fall Prevention, Standard Precautions, Pressure Ulcer Weight Bear Status Right Lower Extremity: Right Full Weight Bearing Left Lower Extremity: Left Full Weight Bearing Referral Physician: Dr. Ruff Reason for Referral: Evaluation/Treatment Medical History Pertinent Medical History: DM Reviewed History: Yes Social History Home: Single Level Current Living Status: Other Family Entry Into Home: Stairs With Railing PT Steps Into Home: 3 Prior Prior Level of Function SCALE: Activities may be completed with or without assistive devices. 5-Zonoxvxtlf-fnppgrv completes the activity by him/herself with no assistance from a helper. 5-Set-up or Clean-up Assistance-helper sets up or cleans up; patient completes activity. [place] assists only prior to or following the activity. 4-Supervision or Touching Assistance-helper provides verbal cues and/or touching/steadying and/or contact guard assistance as patient completes activity. Assistance may be provided throughout the activity or intermittently. 3-Partial/Moderate Assistance-helper does LESS THAN HALF the effort. [place] lifts, holds or supports trunk or limbs, but provides less than half the effort. 2-Substantial/Maximal Assistance-helper does MORE THAN HALF the effort. [place] lifts or holds trunk or limbs and provides more than half the effort. 1-Evtkruddy-kuilrg does ALL the effort. Patient does none of the effort to complete the activity. Or, the assistance of 2 or more helpers is required for the patient to complete the activity. If activity was not attempted, code reason: 7-Patient Refused. 9-Not Applicable-not attempted and the patient did not perform the activity before the current illness, exacerbation or injury. 10-Not Attempted due to Environmental Limitations-(lack of equipment, weather restraints, etc.). 88-Not Attempted due to Medical Conditions or Safety Concerns. Bed Mobility: 6 Transfers (B,C,W/C): 6 Gait: 6 Stairs: 6 Indoor Mobility (Ambulation): Independent Stairs: Independent Prior Devices Use: None PT Evaluation-Current Subjective Patient lying supine in bed upon PT arrival, agreeable to treatment. Patient rates pain at 0/10. Objective Patient Orientation: Person, Place Attachments: Oxygen ROM/Strength ROM Lower Extremities WFLs BLEs all planes. Strength Lower Extremities 3/5 BLEs all planes Sensory Vision: Functional Hearing: Functional Sensation Right Lower Extremit: Intact Sensation Left Lower Extremity: Intact Transfers Roll Left to Right (QC): 3 Sit to Lying (QC): 3 Lying to Sitting/Side of Bed(Q: 3 Sit to Stand (QC): 3 Gait Does the Patient Walk?: No and Walking Goal IS indicated Mode of Locomotion: Walk Anticipated Mode of Locomotion: Walk Balance Sitting Static: Fair Sitting Dynamic: Fair Standing Static: Poor Standing Dynamic: Poor Assessment/Needs Patient tolerated treatment fair until on his feet. Patient performs all bed mobility and transfers with min a. Patient performs sit to stand and agreeable to ambulating around bed to chair, until he stood. Reports his legs feel weak and he does not feel like he can walk at this time. Patient stood ~3 minutes and then returned to bed. Patient in bed post treatment with all needs met, nursing notified, call light in hand. Rehab Potential: Fair PT Evaporator Operator Molasses Goals Prison Goals PT Evaporator Operator Molasses Goals Time Frame: May 23, 2023 Roll Left & Right (QC): 6 Sit to Lying (QC): 6 Lying-Sitting on Side/Bed(QC): 6 Sit to Stand (QC): 5 Chair/Gag-fg-Jxnvl Xfer(QC): 5 Toilet Transfer (QC): 5 Does the Patient Walk: Yes Walk 10 feet (QC): 4 Walk 50ft with 2 Turns (QC): 4 Walk 150 ft (QC): 4 1 Step (curb) (QC): 3 4 Steps (QC): 3 PT Plan Problem List Problem List: Activity Tolerance, Functional Strength, Safety, Balance, Gait, Transfer, Bed Mobility, ROM Treatment/Plan Treatment Plan: Continue Plan of Care Treatment Plan: Bed Mobility, Education, Functional Activity Mary [place], Functional Strength, Group Therapy, Gait, Safety, Therapeutic Exercise, Transfers Treatment Duration: May 28, 2023 Frequency: 6 times per week Estimated Hrs Per Day: .25 hour per day Patient and/or Family Agrees t: Yes Safety Risks/Education Patient Education: Transfer Techniques Teaching Recipient: Patient Teaching Methods: Demonstration, Discussion Response to Teaching: Reinforcement Needed Time Time In: 1128 Time Out: 1145 DATE: Apr 16, 2023 Total Billed Treatment Time: 17 Total Billed Treatment Visit, UNIQUE DINH PT Apr 16, 2023 15:21
--- NOTE | 2023-04-16 15:22 | Consultation-Cardiology ---
HPI-Cardiology Cardiology Consultation: Date of Consultation 04/16/23 Date of Admission Attending Physician Magdalena Odonnell DO Admitting Physician Admitting Physician: Aline Ruff MD Attending Physician: Aline Ruff MD Consulting Physician Brent FOY MD HPI: Time Seen by a Provider: 15:19 Chief Complaint: Constipation, ascites, shortness of breath This is a 67-year-old gentleman with history of diabetes, dilated cardiomyopathy, ascites, who presents with constipation, ascites and shortness of breath. Paracentesis done by Dr. Ruff. Echocardiogram shows LV systolic dysfunction which is moderate, significantly increased PA pressure and right- sided heart failure. Hepatitis C positive with increased bilirubin and alk phosphatase. Mildly elevated BNP. Hypokalemia. Review of Systems-Cardiology Review of Systems Constitutional: tiredness Eyes: no symptoms reported Ears/Nose/Throat: no symptoms reported Respiratory: SOB with excertion Cardiovascular: As described under HPI Gastrointestinal: constipation, other (Ascites.) Genitourinary: no symptoms reported Musculoskeletal: no symptoms reported Skin: no symptoms reported Psychiatric/Neurological: other (History of schizophrenia) Hematologic: no symptoms reported IFX-Hmeblw-Btkjpf Hx Patient Social History Smoking Status: Current Everyday Smoker (ppd) Alcohol Use?: Yes (quart per month) Substance type: Marijuana (reports last use prior to stroke in 06/2017) Pt feels they are or have been: No Tobacco type used: Cigarettes Immunizations Up To Date Tetanus Booster (TDap): More than 5yrs Past Medical History PMH As described under Assessment. Family Medical History Family History: Myocardial infarction 19 FATHER, Onset:Unknown Allergies and Home Medications Allergies Coded Allergies: No Known Drug Allergies (Unverified , 04/14/23) Patient Home Medication List Home Medication List Reviewed: Yes Paliperidone Palmitate (Invega Sustenna) 234 Mg/1.5 Ml Syringe, 234 MG IM MONTHLY, (Reported) Entered as Reported by: JOSS MULLINS on 04/15/23 1515 Last Action: Reviewed Discontinued Medications Aspirin (Aspirin EC) 325 Mg Tablet., 325 MG PO DAILY Discontinued Reason: No Longer Taking Prescribed by: LOLI MARTE on 06/30/17 1135 Last Action: Discontinued Ciprofloxacin HCl (Ciprofloxacin HCl) 2.5 Ml Drops, 2 DROPS LEFT EAR BID, (Re ported) Discontinued Reason: No Longer Taking Entered as Reported by: DAVID IVAN on 06/29/171624 Last Action: Discontinued Ciprofloxacin HCl/Dexameth (Ciprodex Otic Suspension) 0.3 %-0.1 % Soln, 7.5 ML OT BID Discontinued Reason: No Longer Taking Prescribed by: RHYS SIMMONS on 03/15/231925 Last Action: Discontinued Clindamycin HCl (Clindamycin HCl) 300 Mg Capsule, 300 MG PO TID, (Reported) Discontinued Reason: No Longer Taking Entered as Reported by: DAVID IVAN on 06/29/171624 Last Action: Discontinued Ibuprofen (Advil) 200 Mg Tablet, 800 MG PO TID PRN for PAIN-MILD, (Reported) Discontinued Reason: No Longer Taking Entered as Reported by: JOHANNY SOMMER on 06/26/17902 Last Action: Discontinued Meclizine HCl (Meclizine HCl) 25 Mg Tablet, 50 MG PO Q6 PRN for DIZZINESS Discontinued Reason: No Longer Taking Prescribed by: RHYS SIMMONS on 03/15/231925 Last Action: Discontinued Naproxen (Naproxen) 500 Mg Tablet.dr, 500 MG PO BID Discontinued Reason: No Longer Taking Prescribed by: RHYS SIMMONS on 03/15/231925 Last Action: Discontinued Paliperidone Palmitate (Invega Trinza) 546 Mg/1.75 Ml Syringe, 546 MG IM EVERY 12 WEEKS, (Reported) Discontinued Reason: No Longer Taking Entered as Reported by: JOHANNY SOMMER on 06/26/17902 Last Action: Discontinued Scopolamine (Transderm-Scop) 1 Mg/3 Day Patch.td72, 1 EACH TD Q72H Discontinued Reason: No Longer Taking Prescribed by: RHYS SIMMONS on 03/15/231925 Last Action: Discontinued Sulfamethoxazole/Trimethoprim (Sulfamethoxazole-Tmp Ds Tablet) 1 Each Tablet, 1 TAB PO BID, (Reported) Discontinued Reason: No Longer Taking Entered as Reported by: DAVID IVAN on 06/29/171624 Last Action: Discontinued Exam Vital Signs Vital Signs Date Time Temp Pulse Resp B/P (MAP) Pulse Ox O2 Delivery O2 Flow Rate FiO2 04/16/23 15:13 35.8 77 17 125/59 (81) 93 Nasal Cannula 2.00 Physical Exam Not in respiratory distress. Chest: Clear to auscultation bilaterally. CVS: Regular rate and rhythm. No significant murmur. GI: Distended abdomen. Positive pedal edema. Labs Laboratory Tests Test 04/15/23 15:32 04/15/23 18:20 04/15/23 20:18 04/16/23 05:05 Range/Units Glucometer 79 89 61 L 70-110 MG/DL Body Fluid Source PERITON Body Fluid Color RED Body Fluid Appearance MKD BLDY Body Fluid WBC 0.025 10^3/uL Body Fluid RBC 0.092 10^6/uL Body Fl Polynuclear WBCs (%)(Auto) 36.0 % Body Fluid Mononuclear Cells % Auto 64.0 % Body Fluid Slide Review Yes Body Fluid Total Protein < 0.8 G/DL Body Fluid Albumin < 0.4 G/DL Test 04/16/23 05:25 04/16/23 05:40 04/16/23 10:23 04/16/23 15:18 Range/Units White Blood Count 3.9 L 4.3-11.0 10^3/uL Red Blood Count 4.45 4.30-5.52 10^6/uL Hemoglobin 12.9 L 13.3-17.7 g/dL Hematocrit 37 L 40-54 % Mean Corpuscular Volume 84 80-99 fL Mean Corpuscular Hemoglobin 29 25-34 pg Mean Corpuscular Hemoglobin Concent 35 32-36 g/dL Red Cell Distribution Width 17.2 H 10.0-14.5 % Platelet Count 76 L 130-400 10^3/uL Mean Platelet Volume 9.0-12.2 fL Percent Immature Platelet Fraction 14.5 H 0.0-7.6 % Sodium Level 140 135-145 MMOL/L Potassium Level 3.6 3.6-5.0 MMOL/L Chloride Level 100 98-107 MMOL/L Carbon Dioxide Level 32 21-32 MMOL/L Anion Gap 8 5-14 MMOL/L Blood Urea Nitrogen 20 H 7-18 MG/DL Creatinine 1.15 0.60-1.30 MG/DL Estimat Glomerular Filtration Rate 69 BUN/Creatinine Ratio 17 Glucose Level 70 70-105 MG/DL Calcium Level 8.5 8.5-10.1 MG/DL Corrected Calcium 9.4 8.5-10.1 MG/DL Total Bilirubin 3.0 H 0.1-1.0 MG/DL Aspartate Amino Transf (AST/SGOT) 37 H 5-34 U/L Alanine Aminotransferase (ALT/SGPT) 14 0-55 U/L Alkaline Phosphatase 187 H 40-136 U/L Total Protein 6.4 6.4-8.2 GM/DL Albumin 2.9 L 3.2-4.5 GM/DL Glucometer 75 99 74 70-110 MG/DL A/P-Cardiology Assessment/Admission Diagnosis Hepatitis C, likely advanced liver disease, Dilated cardiomyopathy, Right heart failure, Severe pulmonary hypertension, Ascites, Hypokalemia Plan Hepatitis C, likely advanced liver disease, further work-up is pending. Defer to Dr. Ruff. Dilated cardiomyopathy, echocardiogram showed an EF of 35 to 40%. Global hypokinesis. Right heart failure, IV Lasix. Severe pulmonary hypertension, could be secondary to dilated cardiomyopathy. However may need work-up in the future. Ascites, paracentesis done by Dr. Ruff. Hypokalemia Guarded prognosis. Brent FOY MD Apr 16, 2023 15:21
[2023-04-16 19:12] VITALS: BP 100/57
[2023-04-16] MEDS: polyethylene glycoL POWDER 17 GM (MIRALAX) PACK PO SCH (20:30)
[2023-04-16] MEDS: ENOXAPARIN 40 MG/0.4 ML (LOVENOX) SYR SQ SCH (20:30)
[2023-04-16 23:12] VITALS: BP 108/68
[2023-04-17 04:31] VITALS: BP 115/76
[2023-04-17 05:27] LABS: HEMATOCRIT 36 % (40-54); HEMOGLOBIN 12.3 g/dL (13.3-17.7); MEAN CORPUSCULAR HEMOGLOBIN 29 pg (25-34); MEAN CORPUSCULAR HGB CONC 35 g/dL (32-36); MEAN CORPUSCULAR VOLUME 83 fL (80-99); PLATELET COUNT 76 10^3/uL (130-400); WHITE BLOOD COUNT 4.6 10^3/uL (4.3-11.0)
[2023-04-17 05:42] LABS: POTASSIUM 3.6 MMOL/L (3.6-5.0)
[2023-04-17 05:44] LABS: CALCIUM 8.5 MG/DL (8.5-10.1)
[2023-04-17 05:45] LABS: TOTAL PROTEIN 6.5 GM/DL (6.4-8.2)
[2023-04-17 05:48] LABS: CREATININE SERUM 1.04 MG/DL (0.60-1.30)
[2023-04-17] MEDS: inSUlin ASPART (NovoLOG) 1 UNIT/0.01 ML (CHARGE PER UNIT) SC SCH ×4 (05:51→21:15)
--- NOTE | 2023-04-17 07:10 | Physician Query Clarification ---
PQ-CHF Specificity Admission Date: Apr 16, 2023 at 09:55 Discharge Date: Dr. Guaman, The medical record reflects the following clinical scenario: History/Risk Factors: anasarca, Hepatitis C, Pulmonary HTN Clinical Findings: BNP 269.4 Treatment: 40 mg IVP Lasix Question: Can you further specify the acuity of the right heart failure per the clinical indicators above? Please document a response in the Progress Notes or Discharge Summary. 1. Acuity: Acute, Chronic or Acute on Chronic 2. Unspecified: right heart failure cannot be further specified regarding acuity 3. Other, with explanation of clinical findings 4. Clinically undetermined, no explanation for clinical findings PHYSICIAN RESPONSE Acuity: Acute on Chronic Type: Systolic & Diastolic Other, clinical findings acute on chronic systolic CHF and acute on chronic right heart failure In responding to this query, please exercise your independent professional judgment. The purpose of this communication is to more accurately reflect the complexity of your patients condition. The fact that a question is asked does not imply that any particular answer is desired or expected. Thank you for your timely response to this clarification. Requestors name: Jarvis THIS PHYSICIAN QUERY FORM IS A PERMANENT PART OF THE MEDICAL RECORD JARVIS BEST Apr 17, 2023 07:10 Brent GUAMAN MD Apr 17, 2023 12:53
--- NOTE | 2023-04-17 07:40 | Progress Note ---
Subjective Subjective/Events-last exam Pt sleeping, but awakens to voice, denies concerns. Denies abdominal pain. Objective Exam Last Set of Vital Signs Vital Signs Date Time Temp Pulse Resp B/P (MAP) Pulse Ox O2 Delivery O2 Flow Rate FiO2 04/17/23 05:57 Nasal Cannula 2.00 04/17/23 04:31 36.0 76 18 115/76 (89) 97 Capillary Refill : Less Than 3 Seconds I&O Intake and Output 04/17/23 00:00 Intake Total 2445 ml Output Total 1855 ml Balance 590 ml Intake Oral 2445 ml Output Urine Total 1855 ml # Voids 1 # Bowel Movements 1 General: Alert, No Acute Distress Lungs: Clear to Auscultation Heart: Regular Rate, Other (irregular rhythm) Abdomen: Normal Bowel Sounds, Soft, No Tenderness Extremities: Other (trace edema) Neuro: Other (dysarthric speech, limited ability to explain information back that is given to him about diagnoses) Results/Procedures Lab Laboratory Tests 04/16/23 10:23: Glucometer 99 04/16/23 15:18: Glucometer 74 04/16/23 16:47: Glucometer 84 04/16/23 20:01: Glucometer 63L 04/16/23 22:04: Glucometer 105 04/17/23 04:32: Glucometer 79 04/17/23 05:11: White Blood Count 4.6, Red Blood Count 4.32, Hemoglobin 12.3L, Hematocrit 36L, Mean Corpuscular Volume 83, Mean Corpuscular Hemoglobin 29, Mean Corpuscular Hemoglobin Concent 35, Red Cell Distribution Width 16.9H, Platelet Count 76L, Mean Platelet Volume , Percent Immature Platelet Fraction 13.3H, Sodium Level 140, Potassium Level 3.6, Chloride Level 98, Carbon Dioxide Level 32, Anion Gap 10, Blood Urea Nitrogen 18, Creatinine 1.04, Estimat Glomerular Filtration Rate 78, BUN/Creatinine Ratio 17, Glucose Level 83, Calcium Level 8.5, Corrected Calcium 9.3, Total Bilirubin 3.0H, Aspartate Amino Transf (AST/SGOT) 47H, Alanine Aminotransferase (ALT/SGPT) 16, Alkaline Phosphatase 199H, Total Protein 6.5, Albumin 3.0L Radiology CT abd/pelvis 04/14: IMPRESSION: 1. Third spaced fluids as described but no loculated collection. The heart is enlarged, correlate for failure. 2. No abnormal fecal loading. No bowel, biliary, or urinary tract obstruction. 3. Extensive atherosclerotic vascular disease, nonaneurysmal. CXR 04/14: IMPRESSION: 1:Stable cardiomegaly with mild pulmonary vascular congestion centrally. 2: Is mild atelectasis or scarring and/or minimal pulmonary venous congestion involving the lung bases. Assessment/Plan Assessment/Plan (1) Anasarca Assessment & Plan: IV lasix started, has elevated BNP and echo in 2020 with decreased EF, repeat echo pending. Suspect liver failure due liver testing. Will add spironolactone and change furosemide to PO. (2) Elevated bilirubin Status: Acute Assessment & Plan: Hepatitis panel with positive Hep C antibody, viral load pending. Liver US with moderate ascites with possible increased protein, cellular or blood. Discussed with him and his sister who is DPOA and they are agreeable to paracentesis, this was attempted at bedside 04/15 and very small amount of fluid obtained. Low PMN count and SAAG 2.5, consistent with portal hypertension. (3) Hypokalemia Status: Resolved Assessment & Plan: Replace and follow (4) Type 2 diabetes mellitus with unspecified complications Status: Chronic Assessment & Plan: Diabetic diet, sliding scale insulin as needed. (5) Schizophrenia Status: Chronic (6) Thrombocytopenia Status: Acute Assessment & Plan: Suspect liver dysfunction given elevated bili and alk phos and marked edema. Monitor closely. (7) History of stroke Status: Chronic (8) Constipation Status: Acute Assessment & Plan: Miralax (9) Weakness Status: Acute Assessment & Plan: Suspect related to acute onset of edema, PT ordered, anticipate possible need for SNF. (10) DVT prophylaxis Assessment & Plan: Enoxaparin BERTRAM BARKLEY MD Apr 17, 2023 07:40
[2023-04-17 08:17] VITALS: BP 114/57
[2023-04-17] MEDS: SPIRONOLACTONE 25 MG (ALDACTONE) TAB PO SCH (08:36)
[2023-04-17] MEDS ORDERED: FUROSEMIDE 40 MG (LASIX) TAB PO SCH (09:00)
[2023-04-17 11:20] VITALS: BP 100/57
--- NOTE | 2023-04-17 13:48 | Physical Therapy Daily Note ---
PT Daily Note-Current Subjective Patient lying supine in bed with left LE hanging out and foot touching the floor upon PT arrival, agreeable to treatment. Patient rates pain at 0/10 currently. Pain Section J - Health Conditions 1. Rarely or not at all 2. Occasionally 3. Frequently 4. Almost constantly 8. Unable to answer Pain Effect on Sleep: 1 Pain Interference with Therapy: 1 Pain Interference w/Day-to-Day: 1 Mental Status Patient Orientation: Person, Place Transfers SCALE: Activities may be completed with or without assistive devices. 1-Qsdmlupgew-zaqioao completes the activity by him/herself with no assistance from a helper. 5-Set-up or Clean-up Assistance-helper sets up or cleans up; patient completes activity. [place] assists only prior to or following the activity. 4-Supervision or Touching Assistance-helper provides verbal cues and/or touching/steadying and/or contact guard assistance as patient completes activity. Assistance may be provided throughout the activity or intermittently. 3-Partial/Moderate Assistance-helper does LESS THAN HALF the effort. [place] lifts, holds or supports trunk or limbs, but provides less than half the effort. 2-Substantial/Maximal Assistance-helper does MORE THAN HALF the effort. [place] lifts or holds trunk or limbs and provides more than half the effort. 9-Sworebzca-ciskqe does ALL the effort. Patient does none of the effort to complete the activity. Or, the assistance of 2 or more helpers is required for the patient to complete the activity. If activity was not attempted, code reason: 7-Patient Refused. 9-Not Applicable-not attempted and the patient did not perform the activity before the current illness, exacerbation or injury. 10-Not Attempted due to Environmental Limitations-(lack of equipment, weather restraints, etc.). 88-Not Attempted due to Medical Conditions or Safety Concerns. Roll Left & Right (QC): 3 Sit to Lying (QC): 3 Lying to Sitting/Side of Bed(Q: 3 Sit to Stand (QC): 3 Weight Bearing Right Lower Extremity: Right Full Weight Bearing Left Lower Extremity: Left Full Weight Bearing Gait Training Does the Patient Walk?: No and Walking Goal IS indicated Distance: 3' Walk 10 feet (QC): 3 Gait Assistive Device: FWW Exercises Supine Ex: Ankle pumps, Quad Set, Heel Slides, Short Arc Quads, Straight leg raise, Hip abd/add Supine Reps: 20 Assessment Current Status: Fair Progress Patient tolerated treatment fair. Patient performs all therapeutic exercise as listed above. Patient performs all bed mobility and transfers with min a. Patient stood ~3 minutes and then returned to bed. Patient in bed post treatment with all needs met, nursing notified, call light in hand. PT Driver Messenger Goals Mcc Goals PT Driver Messenger Goals Time Frame: May 23, 2023 Roll Left & Right (QC): 6 Sit to Lying (QC): 6 Lying-Sitting on Side/Bed(QC): 6 Sit to Stand (QC): 5 Chair/Adi-jw-Vzcav Xfer(QC): 5 Toilet Transfer (QC): 5 Does the Patient Walk: Yes Walk 10 feet (QC): 4 Walk 50ft with 2 Turns (QC): 4 Walk 150 ft (QC): 4 1 Step (curb) (QC): 3 4 Steps (QC): 3 PT Plan Treatment/Plan Treatment Plan: Continue Plan of Care Treatment Plan: Bed Mobility, Education, Functional Activity Mary Alice, Functional Strength, Group Therapy, Gait, Safety, Therapeutic Exercise, Transfers Treatment Duration: May 28, 2023 Frequency: 6 times per week Estimated Hrs Per Day: .25 hour per day Patient and/or Family Agrees t: Yes Safety Risks/Education Patient Education: Transfer Techniques Teaching Recipient: Patient Teaching Methods: Demonstration, Discussion Response to Teaching: Reinforcement Needed Time Time In: 1041 Time Out: 1105 DATE: Apr 17, 2023 Total Billed Treatment Time: 24 Total Billed Treatment Visit, MELISA WILLINGHAM JOHN A PT Apr 17, 2023 13:48
--- NOTE | 2023-04-17 15:17 | Cardiology Progress Note ---
Cardiology SOAP Progress Note Subjective: Still complains of shortness of breath. Objective: I&O/Vital Signs 04/17/23 04/17/23 04/17/23 04/17/23 04:31 05:57 08:17 11:20 Temp 36.0 36.0 36.6 Pulse 76 75 80 Resp 18 20 20 B/P (MAP) 115/76 (89) 114/57 (76) 100/57 (71) Pulse Ox 97 92 91 O2 Delivery Nasal Cannula Nasal Cannula Nasal Cannula Nasal Cannula O2 Flow Rate 2.00 2.00 2.00 2.00 04/17/23 00:00 Intake Total 2045 ml Output Total 1580 ml Balance 465 ml Weight (Pounds): 237 Weight (Ounces): 4.0 Weight (Calculated Kilograms): 107.107132 Constitutional: AAO x 3 Respiratory: rhonchi Cardiovascular: regular rate-rhythm Gastrointestional: distended Neurologic/Psychiatric: alert, normal mood/affect Results/Procedures: Labs Laboratory Tests 04/16/23 15:18: Glucometer 74 04/16/23 16:47: Glucometer 84 04/16/23 20:01: Glucometer 63L 04/16/23 22:04: Glucometer 105 04/17/23 04:32: Glucometer 79 04/17/23 05:11: White Blood Count 4.6, Red Blood Count 4.32, Hemoglobin 12.3L, Hematocrit 36L, Mean Corpuscular Volume 83, Mean Corpuscular Hemoglobin 29, Mean Corpuscular Hemoglobin Concent 35, Red Cell Distribution Width 16.9H, Platelet Count 76L, Mean Platelet Volume , Percent Immature Platelet Fraction 13.3H, Sodium Level 140, Potassium Level 3.6, Chloride Level 98, Carbon Dioxide Level 32, Anion Gap 10, Blood Urea Nitrogen 18, Creatinine 1.04, Estimat Glomerular Filtration Rate 78, BUN/Creatinine Ratio 17, Glucose Level 83, Calcium Level 8.5, Corrected Calcium 9.3, Total Bilirubin 3.0H, Aspartate Amino Transf (AST/SGOT) 47H, Alanine Aminotransferase (ALT/SGPT) 16, Alkaline Phosphatase 199H, Total Protein 6.5, Albumin 3.0L 04/17/23 11:15: Glucometer 88 A/P: Assessment/Dx: Hepatitis C, likely advanced liver disease, Dilated cardiomyopathy, Right heart failure, Severe pulmonary hypertension, Ascites, Hypokalemia Plan: Hepatitis C, likely advanced liver disease, further work-up is pending. Defer to Dr. Ruff. Dilated cardiomyopathy, echocardiogram showed an EF of 35 to 40%. Global hypokinesis. Right heart failure, increase Lasix to 80 mg daily. Severe pulmonary hypertension, could be secondary to dilated cardiomyopathy. However may need work-up in the future. Ascites, paracentesis done by Dr. Ruff. Hypokalemia Guarded prognosis. Thank you for your consultation. Please call me if you have any questions. Nathan Guaman MD, FACP, FACC, FSCAI, FHRS, CCDS Interventional Cardiology Cardiac Electrophysiology Vascular Medicine and Endovascular Interventions Brent GUAMAN MD Apr 17, 2023 15:17
[2023-04-17 16:05] VITALS: BP 124/69
[2023-04-17 19:22] VITALS: BP 142/66
[2023-04-17] MEDS: polyethylene glycoL POWDER 17 GM (MIRALAX) PACK PO SCH (21:18)
[2023-04-17] MEDS: ENOXAPARIN 40 MG/0.4 ML (LOVENOX) SYR SQ SCH (21:18)
[2023-04-18] VITALS (7 sets, daily range): BP systolic 96–145; BP diastolic 54–81
[2023-04-18] MEDS: inSUlin ASPART (NovoLOG) 1 UNIT/0.01 ML (CHARGE PER UNIT) SC SCH ×2 (05:57→11:10)
--- NOTE | 2023-04-18 08:27 | Progress Note ---
Objective Exam Last Set of Vital Signs Vital Signs Date Time Temp Pulse Resp B/P (MAP) Pulse Ox O2 Delivery O2 Flow Rate FiO2 04/18/23 08:13 36.3 87 20 145/74 (97) 90 Nasal Cannula 2.00 Capillary Refill : Less Than 3 Seconds I&O Intake and Output 04/18/23 00:00 Intake Total 2570 ml Output Total 1350 ml Balance 1220 ml Intake Oral 2570 ml Output Urine Total 1350 ml Results/Procedures Lab Laboratory Tests 04/17/23 11:15: Glucometer 88 04/17/23 15:31: Glucometer 127H 04/17/23 20:49: Glucometer 91 04/18/23 04:59: Glucometer [address] abd/pelvis 04/14: IMPRESSION: 1. Third spaced fluids as described but no loculated collection. The heart is enlarged, correlate for failure. 2. No abnormal fecal loading. No bowel, biliary, or urinary tract obstruction. 3. Extensive atherosclerotic vascular disease, nonaneurysmal. CXR 04/14: IMPRESSION: 1:Stable cardiomegaly with mild pulmonary vascular congestion centrally. 2: Is mild atelectasis or scarring and/or minimal pulmonary venous congestion involving the lung bases. Assessment/Plan Assessment/Plan (1) Anasarca Assessment & Plan: IV lasix started, has elevated BNP and echo in 2020 with decreased EF Suspect liver failure due liver testing. Will add spironolactone and change furosemide to PO. 04/18 Per cardiology, lasix 80 mg PO. Repeat echo showed EF 35-40% with global hypokinesis (2) Elevated bilirubin Status: Acute Assessment & Plan: Hepatitis panel with positive Hep C antibody, viral load pending. Liver US with moderate ascites with possible increased protein, cellular or blood. Discussed with him and his sister who is DPOA and they are agreeable to paracentesis, this was attempted at bedside 04/15 and very small amount of fluid obtained. Low PMN count and SAAG 2.5, consistent with portal hypertension. (3) Hypokalemia Status: Resolved Assessment & Plan: Replace and follow (4) Type 2 diabetes mellitus with unspecified complications Status: Chronic Assessment & Plan: Diabetic diet, sliding scale insulin as needed. (5) Schizophrenia Status: Chronic (6) Thrombocytopenia Status: Acute Assessment & Plan: Suspect liver dysfunction given elevated bili and alk phos and marked edema. Monitor closely. (7) History of stroke Status: Chronic (8) Constipation Status: Acute Assessment & Plan: Miralax (9) Weakness Status: Acute Assessment & Plan: Suspect related to acute onset of edema, PT ordered, anticipate possible need for SNF. (10) DVT prophylaxis Assessment & Plan: Enoxaparin JOSÉ BEST MD Apr 18, 2023 08:27
[2023-04-18] MEDS: SPIRONOLACTONE 25 MG (ALDACTONE) TAB PO SCH (09:17)
[2023-04-18] MEDS: FUROSEMIDE 40 MG (LASIX) TAB PO SCH (09:17)
--- NOTE | 2023-04-18 10:32 | Physical Therapy Daily Note ---
PT Daily Note-Current Subjective Patient lying supine in bed upon PT arrival, agreeable to treatment. Rates pain at 0/10 currently. Pain Section J - Health Conditions 1. Rarely or not at all 2. Occasionally 3. Frequently 4. Almost constantly 8. Unable to answer Pain Effect on Sleep: 1 Pain Interference with Therapy: 1 Pain Interference w/Day-to-Day: 1 Transfers SCALE: Activities may be completed with or without assistive devices. 3-Dmhrivgvpv-dzpdkwb completes the activity by him/herself with no assistance from a helper. 5-Set-up or Clean-up Assistance-helper sets up or cleans up; patient completes activity. [place] assists only prior to or following the activity. 4-Supervision or Touching Assistance-helper provides verbal cues and/or touching/steadying and/or contact guard assistance as patient completes activity. Assistance may be provided throughout the activity or intermittently. 3-Partial/Moderate Assistance-helper does LESS THAN HALF the effort. [place] lifts, holds or supports trunk or limbs, but provides less than half the effort. 2-Substantial/Maximal Assistance-helper does MORE THAN HALF the effort. [place] lifts or holds trunk or limbs and provides more than half the effort. 1-Jnuwjldkg-rhqblh does ALL the effort. Patient does none of the effort to complete the activity. Or, the assistance of 2 or more helpers is required for the patient to complete the activity. If activity was not attempted, code reason: 7-Patient Refused. 9-Not Applicable-not attempted and the patient did not perform the activity before the current illness, exacerbation or injury. 10-Not Attempted due to Environmental Limitations-(lack of equipment, weather restraints, etc.). 88-Not Attempted due to Medical Conditions or Safety Concerns. Roll Left & Right (QC): 4 Sit to Lying (QC): 4 Lying to Sitting/Side of Bed(Q: 4 Sit to Stand (QC): 3 Chair/Dcx-dv-Zfwho Xfer(QC): 3 Weight Bearing Right Lower Extremity: Right Full Weight Bearing Left Lower Extremity: Left Full Weight Bearing Gait Training Does the Patient Walk?: Yes Distance: 3' Gait Assistive Device: FWW Exercises Seated Therapy Exercises: Ankle pumps, Long arc quads, Hip flexion, Hamstring Curls, Hip abd/add Seated Reps: 10 Assessment Current Status: Fair Progress Patient tolerated treatment fair. Patient performs all therapeutic exercise as listed above. Patient performs all bed mobility and transfers with SBA. Patient performed sit to stand with min a and began to ambulate with small steps to the chair. He twisted and flopped into the chair. PT was unable to control his decent however patient reports he is fine and was educated on the proper procedure for sitting into the chair. Patient in chair post treatment with all needs met, nursing notified, call light in hand. PT Steel Estimator Goals Residential Goals PT Residential Goals Time Frame: May 23, 2023 Roll Left & Right (QC): 6 Sit to Lying (QC): 6 Lying-Sitting on Side/Bed(QC): 6 Sit to Stand (QC): 5 Chair/Bpe-ns-Izbwc Xfer(QC): 5 Toilet Transfer (QC): 5 Does the Patient Walk: Yes Walk 10 feet (QC): 4 Walk 50ft with 2 Turns (QC): 4 Walk 150 ft (QC): 4 1 Step (curb) (QC): 3 4 Steps (QC): 3 PT Plan Treatment/Plan Treatment Plan: Continue Plan of Care Treatment Plan: Bed Mobility, Education, Functional Activity Mary Alice, Functional Strength, Group Therapy, Gait, Safety, Therapeutic Exercise, Transfers Treatment Duration: May 28, 2023 Frequency: 6 times per week Estimated Hrs Per Day: .25 hour per day Patient and/or Family Agrees t: Yes Safety Risks/Education Patient Education: Transfer Techniques Teaching Recipient: Patient, Family Teaching Methods: Demonstration, Discussion Response to Teaching: Reinforcement Needed Time Time In: 951 Time Out: 1015 DATE: Apr 18, 2023 Total Billed Treatment Time: 24 Total Billed Treatment Visit, MAULIK, UNIQUE STERN PT Apr 18, 2023 10:32
--- NOTE | 2023-04-18 14:43 | Progress Note ---
JOSÉ BEST MD 04/18/23 1443: Subjective Subjective/Events-last exam No acute events overnight. Pt reports feeling okay today. He still has some pain over his abdomen that is well controlled with medications. Review of Systems General: No Chills, No Night Sweats, No Fatigue, No Malaise, No Appetite, No Other HEENT: No Head Aches, No Visual Changes, No Eye Pain, No Ear Pain, No Dysphasia, No Sinus Congestion, No Post Nasal Drip, No Sore Throat, No Other Pulmonary: No Dyspnea, No Cough, No Pleuritic Chest Pain, No Other Cardiovascular: No: Chest Pain, Palpitations, Orthopnea, Paroxysmal Noc. Dyspnea, Edema, Lt Headedness, Other Gastrointestinal: Abdominal Pain Genitourinary: No Dysuria, No Frequency, No Incontinence, No Hematuria, No Retention, No Other Musculoskeletal: No: other, neck pain, shoulder pain, arm pain, back pain, hand pain, leg pain, foot pain Neurological: No: Weakness, Numbness, Incoordination, Change in speech, Confusion, Seizures, Other Objective Exam Last Set of Vital Signs Vital Signs Date Time Temp Pulse Resp B/P (MAP) Pulse Ox O2 Delivery O2 Flow Rate FiO2 04/18/23 11:37 36.0 76 18 120/77 (91) 93 Nasal Cannula 3.00 Capillary Refill : Less Than 3 Seconds I&O Intake and Output 04/18/23 00:00 Intake Total 2570 ml Output Total 1350 ml Balance 1220 ml Intake Oral 2570 ml Output Urine Total 1350 ml General: Alert, Oriented X3, No Acute Distress HEENT: Atraumatic, EOMI Lungs: Other (Coarse breath sounds ) Heart: Regular Rate, No Murmurs Abdomen: Other (Distention, mild diffuse tenderness to palpation) Extremities: Normal Pulses Skin: No Rashes Neuro: Normal Speech Psych/Mental Status: Mental Status NL, Mood NL Results/Procedures Lab Laboratory Tests 04/17/23 15:31: Glucometer 127H 04/17/23 20:49: Glucometer 91 04/18/23 04:59: Glucometer 90 04/18/23 11:40: Glucometer [address] abd/pelvis 04/14: IMPRESSION: 1. Third spaced fluids as described but no loculated collection. The heart is enlarged, correlate for failure. 2. No abnormal fecal loading. No bowel, biliary, or urinary tract obstruction. 3. Extensive atherosclerotic vascular disease, nonaneurysmal. CXR 04/14: IMPRESSION: 1:Stable cardiomegaly with mild pulmonary vascular congestion centrally. 2: Is mild atelectasis or scarring and/or minimal pulmonary venous congestion involving the lung bases. Assessment/Plan Assessment/Plan Admission Status: Inpatient Order (span 2 midnights) Reason for Inpatient Admission: Ascities likely secondary to chronic hepatitis. (1) Anasarca Assessment & Plan: IV lasix started, has elevated BNP and echo in 2020 with decreased EF Suspect liver failure due liver testing. Will add spironolactone and change furosemide to PO. 04/18 Per cardiology, lasix 80 mg PO. Repeat echo showed EF 35-40% with global hypokinesis. Due to low BP this AM, will have lasix parameters as follows: BP < 110/60 hold lasix. Continue diuresis. (2) Elevated bilirubin Status: Acute Assessment & Plan: Hepatitis panel with positive Hep C antibody Liver US with moderate ascites with possible increased protein, cellular or blood. Discussed with him and his sister who is DPOA and they are agreeable to paracentesis, this was attempted at bedside 04/15 and very small amount of fluid obtained. Low PMN count and SAAG 2.5, consistent with portal hypertension. 04/18 Hep [place], [id number]. Continue with symptomatic treatment. (3) Hypokalemia Status: Resolved Assessment & Plan: Replace and follow (4) Type 2 diabetes mellitus with unspecified complications Status: Chronic Assessment & Plan: Diabetic diet, sliding scale insulin as needed. (5) Schizophrenia Status: Chronic (6) Thrombocytopenia Status: Acute Assessment & Plan: Suspect liver dysfunction given elevated bili and alk phos and marked edema. Monitor closely. (7) History of stroke Status: Chronic (8) Constipation Status: Acute Assessment & Plan: Miralax (9) Weakness Status: Acute Assessment & Plan: Suspect related to acute onset of edema, PT ordered, anticipate possible need for SNF. (10) DVT prophylaxis Assessment & Plan: Enoxaparin (11) Hepatitis C virus infection Status: Chronic Assessment & Plan: 04/18 Hep C viral load elevated, continue with symptomatic treatment and diuresis. - Plan for DC to SNF when accepted, medically stable. Qualifiers: Qualified Codes: B18.2 - Chronic viral hepatitis C PETROS SMITH DO 04/18/23 1601: Assessment/Plan Assessment/Plan Admission Dx No major issues Needs SNF Thursday Monitor creat Decrease Lasix Admission Status: Inpatient Order (span 2 midnights) JOSÉ BEST MD Apr 18, 2023 14:43 PETROS SMITH DO Apr 18, 2023 16:01
[2023-04-18] MEDS: ENOXAPARIN 40 MG/0.4 ML (LOVENOX) SYR SQ SCH (21:04)
[2023-04-18] MEDS: polyethylene glycoL POWDER 17 GM (MIRALAX) PACK PO SCH (21:05)
[2023-04-19 03:55] VITALS: BP 106/62
[2023-04-19 05:48] LABS: BASOPHILS # (AUTO) 0.1 10^3/uL (0.0-0.1); BASOPHILS % (AUTO) 1 % (0-10); HEMOGLOBIN 12.4 g/dL (13.3-17.7); MEAN CORPUSCULAR VOLUME 82 fL (80-99)
[2023-04-19 05:50] LABS: EOSINOPHILS # (AUTO) 0.1 10^3/uL (0.0-0.3); EOSINOPHILS % (AUTO) 1 % (0-10); HEMATOCRIT 35 % (40-54); LYMPHOCYTES # (AUTO) 1.5 10^3/uL (1.0-4.0); LYMPHOCYTES % (AUTO) 29 % (12-44); MEAN CORPUSCULAR HEMOGLOBIN 29 pg (25-34); MEAN CORPUSCULAR HGB CONC 35 g/dL (32-36); MONOCYTES # (AUTO) 0.8 10^3/uL (0.0-1.0); MONOCYTES % (AUTO) 15 % (0-12); NEUTROPHILS # (AUTO) 2.7 10^3/uL (1.8-7.8); NEUTROPHILS % (AUTO) 54 % (42-75); PLATELET COUNT 72 10^3/uL (130-400); WHITE BLOOD COUNT 5.1 10^3/uL (4.3-11.0)
[2023-04-19 06:11] LABS: BILIRUBIN,TOTAL 3.8 MG/DL (0.1-1.0); CALCIUM 8.6 MG/DL (8.5-10.1); CREATININE SERUM 0.94 MG/DL (0.60-1.30); POTASSIUM 3.8 MMOL/L (3.6-5.0); TOTAL PROTEIN 6.8 GM/DL (6.4-8.2)
[2023-04-19 08:07] VITALS: BP 93/52
--- NOTE | 2023-04-19 08:20 | Progress Note ---
JOSÉ BEST MD 04/19/23 0820: Subjective Subjective/Events-last exam No acute events overnight. Pt doing well this morning. He complains of pain in his RLQ that radiates to the lower midline. Review of Systems General: No Chills, No Night Sweats, No Fatigue, No Malaise, No Appetite, No Other HEENT: No Head Aches, No Visual Changes, No Eye Pain, No Ear Pain, No Dysphasia, No Sinus Congestion, No Post Nasal Drip, No Sore Throat, No Other Pulmonary: No Dyspnea, No Cough, No Pleuritic Chest Pain, No Other Cardiovascular: No: Chest Pain, Palpitations, Orthopnea, Paroxysmal Noc. Dyspnea, Edema, Lt Headedness, Other Gastrointestinal: Abdominal Pain Musculoskeletal: No: other, neck pain, shoulder pain, arm pain, back pain, hand pain, leg pain, foot pain Neurological: No: Weakness, Numbness, Incoordination, Change in speech, Confusion, Seizures, Other Objective Exam Last Set of Vital Signs Vital Signs Date Time Temp Pulse Resp B/P (MAP) Pulse Ox O2 Delivery O2 Flow Rate FiO2 04/19/23 08:07 35.8 77 16 93/52 (66) 87 Nasal Cannula 2.00 Capillary Refill : Less Than 3 Seconds I&O Intake and Output 04/19/23 00:00 Intake Total 1340 ml Output Total 1100 ml Balance 240 ml Intake Oral 1340 ml Output Urine Total 1100 ml # Voids 1 General: Alert, No Acute Distress HEENT: Atraumatic Lungs: Normal Air Movement Heart: Regular Rate, No Murmurs Abdomen: Other (Distended; tender to palpation diffusely) Skin: No Rashes Psych/Mental Status: Mood NL Results/Procedures Lab Laboratory Tests 04/18/23 11:40: Glucometer 92 04/19/23 05:31: White Blood Count 5.1, Red Blood Count 4.31, Hemoglobin 12.4L, Hematocrit 35L, Mean Corpuscular Volume 82, Mean Corpuscular Hemoglobin 29, Mean Corpuscular Hemoglobin Concent 35, Red Cell Distribution Width 16.8H, Platelet Count 72L, Mean Platelet Volume , Immature Granulocyte % (Auto) 0, Neutrophils (%) (Auto) 54, Lymphocytes (%) (Auto) 29, Monocytes (%) (Auto) 15H, Eosinophils (%) (Auto) 1, Basophils (%) (Auto) 1, Neutrophils # (Auto) 2.7, Lymphocytes # (Auto) 1.5, Monocytes # (Auto) 0.8, Eosinophils # (Auto) 0.1, Basophils # (Auto) 0.1, Immature Granulocyte # (Auto) 0.0, Percent Immature Platelet Fraction 13.0H, Sodium Level 139, Potassium Level 3.8, Chloride Level 100, Carbon Dioxide Level 30, Anion Gap 9, Blood Urea Nitrogen 16, Creatinine 0.94, Estimat Glomerular Filtration Rate 88, BUN/Creatinine Ratio 17, Glucose Level 72, Calcium Level 8.6, Corrected Calcium 9.4, Total Bilirubin 3.8H, Aspartate Amino Transf (AST/SGOT) 62H, Alanine Aminotransferase (ALT/SGPT) 20, Alkaline Phosphatase 190H, Total Protein 6.8, Albumin 3.0L Radiology CT abd/pelvis 04/14: IMPRESSION: 1. Third spaced fluids as described but no loculated collection. The heart is enlarged, correlate for failure. 2. No abnormal fecal loading. No bowel, biliary, or urinary tract obstruction. 3. Extensive atherosclerotic vascular disease, nonaneurysmal. CXR 04/14: IMPRESSION: 1:Stable cardiomegaly with mild pulmonary vascular congestion centrally. 2: Is mild atelectasis or scarring and/or minimal pulmonary venous congestion involving the lung bases. Assessment/Plan Assessment/Plan (1) Anasarca Assessment & Plan: IV lasix started, has elevated BNP and echo in 2020 with decreased EF Suspect liver failure due liver testing. Will add spironolactone and change furosemide to PO. 04/18 Per cardiology, lasix 80 mg PO. Repeat echo showed EF 35-40% with global hypokinesis. Due to low BP this AM, will have lasix parameters as follows: BP < 110/60 hold lasix. 04/19 Continue diuresis. (2) Elevated bilirubin Status: Acute Assessment & Plan: Hepatitis panel with positive Hep C antibody Liver US with moderate ascites with possible increased protein, cellular or blood. Discussed with him and his sister who is DPOA and they are agreeable to paracentesis, this was attempted at bedside 04/15 and very small amount of fluid obtained. Low PMN count and SAAG 2.5, consistent with portal hypertension. 04/18- [place], [id number]. Continue with symptomatic treatment. (3) Hypokalemia Status: Resolved Assessment & Plan: Replace and follow (4) Type 2 diabetes mellitus with unspecified complications Status: Chronic Assessment & Plan: Diabetic diet, sliding scale insulin as needed. (5) Schizophrenia Status: Chronic (6) Thrombocytopenia Status: Acute Assessment & Plan: Suspect liver dysfunction given elevated bili and alk phos and marked edema. Monitor closely. (7) History of stroke Status: Chronic (8) Constipation Status: Acute Assessment & Plan: Miralax (9) Weakness Status: Acute Assessment & Plan: Suspect related to acute onset of edema, PT ordered, antic ipate possible need for SNF. 04/19 Plan for SNF placement on DC (10) DVT prophylaxis Assessment & Plan: Enoxaparin (11) Hepatitis C virus infection Status: Chronic Assessment & Plan: 04/18 Hep C viral load elevated, continue with symptomatic treatment and diuresis. 04/19 Plan for DC to SNF when accepted, medically stable. Qualifiers: Qualified Codes: B18.2 - Chronic viral hepatitis C PETROS SMITH DO 04/19/23 1658: Assessment/Plan Assessment/Plan Admission Dx I performed a history and physical examination of the patient and discussed management. I reviewed the resident's note and agree with the documented findings and plan of care. Admission Status: Inpatient Order (span 2 midnights) JOSÉ BEST MD Apr 19, 2023 08:20 PETROS SMITH DO Apr 19, 2023 16:58
[2023-04-19] MEDS: SPIRONOLACTONE 25 MG (ALDACTONE) TAB PO SCH (08:45)
[2023-04-19] MEDS: FUROSEMIDE 40 MG (LASIX) TAB PO SCH (08:45)
[2023-04-19 11:50] VITALS: BP 122/79
[2023-04-19 15:42] VITALS: BP 130/72
[2023-04-19 19:26] VITALS: BP 118/59
[2023-04-19] MEDS: polyethylene glycoL POWDER 17 GM (MIRALAX) PACK PO SCH (20:43)
[2023-04-19] MEDS: ENOXAPARIN 40 MG/0.4 ML (LOVENOX) SYR SQ SCH (21:24)
[2023-04-19 23:08] VITALS: BP 120/60
[2023-04-20 04:01] VITALS: BP 112/54
[2023-04-20 06:00] LABS: HEMATOCRIT 35 % (40-54)
[2023-04-20 06:02] LABS: BASOPHILS % (AUTO) 1 % (0-10); EOSINOPHILS # (AUTO) 0.1 10^3/uL (0.0-0.3); EOSINOPHILS % (AUTO) 1 % (0-10); HEMOGLOBIN 12.1 g/dL (13.3-17.7); LYMPHOCYTES # (AUTO) 1.5 10^3/uL (1.0-4.0); LYMPHOCYTES % (AUTO) 30 % (12-44); MEAN CORPUSCULAR HEMOGLOBIN 29 pg (25-34); MEAN CORPUSCULAR HGB CONC 35 g/dL (32-36); MEAN CORPUSCULAR VOLUME 82 fL (80-99); MEAN PLATELET VOLUME 12.6 fL (9.0-12.2); MONOCYTES # (AUTO) 0.8 10^3/uL (0.0-1.0); MONOCYTES % (AUTO) 16 % (0-12); NEUTROPHILS # (AUTO) 2.6 10^3/uL (1.8-7.8); NEUTROPHILS % (AUTO) 51 % (42-75); PLATELET COUNT 79 10^3/uL (130-400)
[2023-04-20 06:16] LABS: BILIRUBIN,TOTAL 3.7 MG/DL (0.1-1.0); CALCIUM 8.8 MG/DL (8.5-10.1); CREATININE SERUM 0.91 MG/DL (0.60-1.30); POTASSIUM 3.9 MMOL/L (3.6-5.0); TOTAL PROTEIN 6.8 GM/DL (6.4-8.2)
[2023-04-20 06:54] LABS: EOSINOPHILS % (MANUAL) 1 %; HYPOCHROMASIA SLIGHT; LYMPHOCYTES % (MANUAL) 32 %; MONOCYTES % (MANUAL) 16 %; NEUTROPHILS % (MANUAL) 51 %; PLATELET ESTIMATE DECREASED; TARGET CELLS SLIGHT
[2023-04-20 07:26] VITALS: BP 119/68
[2023-04-20] MEDS: SPIRONOLACTONE 25 MG (ALDACTONE) TAB PO SCH (08:08)
[2023-04-20] MEDS: FUROSEMIDE 40 MG (LASIX) TAB PO SCH (08:08)
--- NOTE | 2023-04-20 10:14 | Progress Note - Hospitalist ---
Subjective HPI/CC On Admission Date Seen by Provider: Apr 20, 2023 Time Seen by Provider: 10:30 Subjective/Events-last exam No changes Less dyspnea Chronically ill Objective Exam Vital Signs Vital Signs Date Time Temp Pulse Resp B/P (MAP) Pulse Ox O2 Delivery O2 Flow Rate FiO2 04/20/23 20:42 90 Nasal Cannula 2.00 04/20/23 16:03 36.2 85 18 113/70 (84) Capillary Refill : Less Than 3 Seconds General Appearance: No Apparent Distress, WD/WN, Chronically ill Respiratory: Lungs Clear Cardiovascular: Regular Rate, Rhythm Results/Procedures Lab Laboratory Tests 04/20/23 05:50 Patient resulted labs reviewed. Assessment/Plan Assessment and Plan Assess & Plan/Chief Complaint Assessment: Anasarca Liver failure CHF Plan: Monitor closely PETROS SMITH DO Apr 20, 2023 10:14
--- NOTE | 2023-04-20 10:33 | Cardiology Progress Note ---
Subjective Date Seen by Provider: Apr 20, 2023 Time Seen by Provider: 10:31 Subjective/Events-last exam Patient resting in bed, no new complaints. Denies any chest pain. Objective-Cardiology Exam Last Set of Vital Signs Vital Signs 04/20/23 11:13 Temp 36.9 Pulse 80 Resp 20 B/P (MAP) 129/65 (86) Pulse Ox 95 O2 Delivery Nasal Cannula O2 Flow Rate 2.00 I&O Intake and Output 04/20/23 00:00 Intake Total 2020 ml Output Total 800 ml Balance 1220 ml Intake Oral 2020 ml Output Urine Total 800 ml # Voids 3 # Bowel Movements 2 General: Alert, No Acute Distress HEENT: Atraumatic Lungs: Normal Air Movement Heart: Regular Rate, No Murmurs Abdomen: Other (Distended; tender to palpation diffusely) Extremities: Normal Pulses Skin: No Rashes Neuro: Normal Speech Psych/Mental Status: Mood NL Results Lab Laboratory Tests 04/20/23 05:50 A/P-Cardiology Admission Diagnosis Hepatitis C Dilated cardiomyopathy Right heart failure HTP Assessment/Plan Hepatitis C, likely advanced liver disease, further work-up is pending. Defer to medical services. Dilated cardiomyopathy, echocardiogram showed an EF of 35 to 40%. Global hypokinesis. Right heart failure, increase Lasix to 80 mg daily. Severe pulmonary hypertension, could be secondary to dilated cardiomyopathy. However may need work-up in the future. Ascites, paracentesis Hypokalemia, replace and continue to monitor. Guarded prognosis. Supervisory-Addendum Brief Supervisory Addendum Participated in pt care: history, MDM, physical Personally performed: exam, history, MDM Care discussed with: ANTONIO Results interpretation: Verified all documentation Notes: Patient was seen and evaluated with Donovan, examination performed, management plan was discussed, agree with the current scribed note, I made few changes to the note using Italic font Patient was seen at bedside, laying down comfortably, has been doing well Peripheral edema has improved., abdomen still mildly distended Discussed compliance with medication, continue with diuretics and monitor blood pressure closely Monitor tolerance to his current medications. DONOVAN APODACA Apr 20, 2023 10:33 LILIAM KAMARA MD Apr 20, 2023 14:54
[2023-04-20 11:13] VITALS: BP 129/65
[2023-04-20 16:03] VITALS: BP 113/70
--- NOTE | 2023-04-20 16:05 | Physical Therapy Daily Note ---
PT Daily Note-Current Pain Section J - Health Conditions 1. Rarely or not at all 2. Occasionally 3. Frequently 4. Almost constantly 8. Unable to answer Pain Effect on Sleep: 1 Pain Interference with Therapy: 1 Pain Interference w/Day-to-Day: 1 Transfers SCALE: Activities may be completed with or without assistive devices. 2-Iemvevcgca-tlykzcw completes the activity by him/herself with no assistance from a helper. 5-Set-up or Clean-up Assistance-helper sets up or cleans up; patient completes activity. [place] assists only prior to or following the activity. 4-Supervision or Touching Assistance-helper provides verbal cues and/or touching/steadying and/or contact guard assistance as patient completes activity. Assistance may be provided throughout the activity or intermittently. 3-Partial/Moderate Assistance-helper does LESS THAN HALF the effort. [place] lifts, holds or supports trunk or limbs, but provides less than half the effort. 2-Substantial/Maximal Assistance-helper does MORE THAN HALF the effort. [place] lifts or holds trunk or limbs and provides more than half the effort. 5-Saysuqodz-fpcqua does ALL the effort. Patient does none of the effort to complete the activity. Or, the assistance of 2 or more helpers is required for the patient to complete the activity. If activity was not attempted, code reason: 7-Patient Refused. 9-Not Applicable-not attempted and the patient did not perform the activity before the current illness, exacerbation or injury. 10-Not Attempted due to Environmental Limitations-(lack of equipment, weather restraints, etc.). 88-Not Attempted due to Medical Conditions or Safety Concerns. Weight Bearing Right Lower Extremity: Right Full Weight Bearing Left Lower Extremity: Left Full Weight Bearing Assessment Current Status: Poor Progress Patient tolerated treatment fair. Patient performs all bed mobility and transfers with SBA. Patient performed sit to stand with min a and began to ambulate with small steps to the BSC. Patient mildly incontinent BM. Nurse notified. Patient on BSC post treatment with all needs met, nursing notified, call light in hand. PT Intermediate Goals Intermediate Goals PT Collection Systems Technician Goals Time Frame: May 23, 2023 Roll Left & Right (QC): 6 Sit to Lying (QC): 6 Lying-Sitting on Side/Bed(QC): 6 Sit to Stand (QC): 5 Chair/Jgz-ll-Naxyb Xfer(QC): 5 Toilet Transfer (QC): 5 Does the Patient Walk: Yes Walk 10 feet (QC): 4 Walk 50ft with 2 Turns (QC): 4 Walk 150 ft (QC): 4 1 Step (curb) (QC): 3 4 Steps (QC): 3 PT Plan Problem List Problem List: Activity Tolerance, Functional Strength, Safety, Balance, Gait, Transfer, Bed Mobility, ROM Treatment/Plan Treatment Plan: Continue Plan of Care Treatment Plan: Bed Mobility, Education, Functional Activity Mary Alice, Functional Strength, Group Therapy, Gait, Safety, Therapeutic Exercise, Transfers Treatment Duration: May 28, 2023 Frequency: 6 times per week Estimated Hrs Per Day: .25 hour per day Patient and/or Family Agrees t: Yes Safety Risks/Education Patient Education: Transfer Techniques Teaching Recipient: Patient Teaching Methods: Demonstration, Discussion Response to Teaching: Verbalize Understanding, Return Demonstration Time Time In: 1529 Time Out: 153 DATE: Apr 20, 2023 Total Billed Treatment Time: 9 Total Billed Treatment Visit, UNIQUE OLIVA PT Apr 20, 2023 16:05
[2023-04-20] MEDS: polyethylene glycoL POWDER 17 GM (MIRALAX) PACK PO SCH (19:51)
[2023-04-20 21:00] VITALS: BP 117/76
[2023-04-20] MEDS: ENOXAPARIN 40 MG/0.4 ML (LOVENOX) SYR SQ SCH (21:32)
[2023-04-20 23:34] VITALS: BP 136/70
[2023-04-21 05:57] LABS: BASOPHILS % (AUTO) 1 % (0-10); EOSINOPHILS # (AUTO) 0.1 10^3/uL (0.0-0.3); EOSINOPHILS % (AUTO) 1 % (0-10); LYMPHOCYTES # (AUTO) 1.7 10^3/uL (1.0-4.0)
[2023-04-21 06:00] LABS: HEMATOCRIT 34 % (40-54); HEMOGLOBIN 11.8 g/dL (13.3-17.7); LYMPHOCYTES % (AUTO) 30 % (12-44); MEAN CORPUSCULAR HEMOGLOBIN 29 pg (25-34); MEAN CORPUSCULAR HGB CONC 35 g/dL (32-36); MEAN CORPUSCULAR VOLUME 82 fL (80-99); MONOCYTES # (AUTO) 0.8 10^3/uL (0.0-1.0); MONOCYTES % (AUTO) 14 % (0-12); NEUTROPHILS % (AUTO) 53 % (42-75); PLATELET COUNT 85 10^3/uL (130-400); WHITE BLOOD COUNT 5.6 10^3/uL (4.3-11.0)
[2023-04-21 06:12] LABS: TOTAL PROTEIN 6.8 GM/DL (6.4-8.2)
[2023-04-21 06:13] LABS: BILIRUBIN,TOTAL 3.1 MG/DL (0.1-1.0)
[2023-04-21 06:15] LABS: CREATININE SERUM 0.88 MG/DL (0.60-1.30)
[2023-04-21 07:20] VITALS: BP 130/70
[2023-04-21] MEDS: SPIRONOLACTONE 25 MG (ALDACTONE) TAB PO SCH (08:37)
[2023-04-21] MEDS: FUROSEMIDE 40 MG (LASIX) TAB PO SCH (08:37)
--- NOTE | 2023-04-21 10:22 | Progress Note - Hospitalist ---
Subjective HPI/CC On Admission Date Seen by Provider: Apr 21, 2023 Time Seen by Provider: 10:30 Subjective/Events-last exam No major issues Awaiting NHP May go home with family ultimately Objective Exam Vital Signs Vital Signs Date Time Temp Pulse Resp B/P (MAP) Pulse Ox O2 Delivery O2 Flow Rate FiO2 04/21/23 23:30 36.8 83 18 143/72 (95) 94 Nasal Cannula 2.00 2.00 Capillary Refill : Less Than 3 Seconds General Appearance: No Apparent Distress, WD/WN, Chronically ill Results/Procedures Lab Patient resulted labs reviewed. Assessment/Plan Assessment and Plan Assess & Plan/Chief Complaint Assessment: Anasarca Liver failure CHF Plan: Monitor closely PETROS SMITH DO Apr 21, 2023 10:21
--- NOTE | 2023-04-21 14:50 | Physical Therapy Daily Note ---
PT Daily Note-Current Subjective Patient lying supine in bed upon PT arrival, agreeable to treatment. Patient rates pain at 0/10. Pain Section J - Health Conditions 1. Rarely or not at all 2. Occasionally 3. Frequently 4. Almost constantly 8. Unable to answer Pain Effect on Sleep: 1 Pain Interference with Therapy: 1 Pain Interference w/Day-to-Day: 1 Transfers SCALE: Activities may be completed with or without assistive devices. 7-Hvkqzebewq-rmnapal completes the activity by him/herself with no assistance from a helper. 5-Set-up or Clean-up Assistance-helper sets up or cleans up; patient completes activity. [place] assists only prior to or following the activity. 4-Supervision or Touching Assistance-helper provides verbal cues and/or touching/steadying and/or contact guard assistance as patient completes activity. Assistance may be provided throughout the activity or intermittently. 3-Partial/Moderate Assistance-helper does LESS THAN HALF the effort. [place] lifts, holds or supports trunk or limbs, but provides less than half the effort. 2-Substantial/Maximal Assistance-helper does MORE THAN HALF the effort. [place] lifts or holds trunk or limbs and provides more than half the effort. 2-Boisscwwg-kytzmq does ALL the effort. Patient does none of the effort to complete the activity. Or, the assistance of 2 or more helpers is required for the patient to complete the activity. If activity was not attempted, code reason: 7-Patient Refused. 9-Not Applicable-not attempted and the patient did not perform the activity before the current illness, exacerbation or injury. 10-Not Attempted due to Environmental Limitations-(lack of equipment, weather restraints, etc.). 88-Not Attempted due to Medical Conditions or Safety Concerns. Roll Left & Right (QC): 3 Sit to Lying (QC): 3 Lying to Sitting/Side of Bed(Q: 3 Sit to Stand (QC): 3 Chair/Tuy-bo-Ealti Xfer(QC): 3 Weight Bearing Right Lower Extremity: Right Full Weight Bearing Left Lower Extremity: Left Full Weight Bearing Gait Training Does the Patient Walk?: No and Walking Goal IS indicated Assessment Current Status: Poor Progress Patient tolerated treatment fair. Patient performs all bed mobility and transfers with Min A. Patient performed sit to stand with min a and began to ambulate with small steps to the Chair. Patient in Chair post treatment with all needs met, nursing notified, call light in hand. PT Residential Goals Residential Goals PT Residential Goals Time Frame: May 23, 2023 Roll Left & Right (QC): 6 Sit to Lying (QC): 6 Lying-Sitting on Side/Bed(QC): 6 Sit to Stand (QC): 5 Chair/Fyt-cl-Dmnnv Xfer(QC): 5 Toilet Transfer (QC): 5 Does the Patient Walk: Yes Walk 10 feet (QC): 4 Walk 50ft with 2 Turns (QC): 4 Walk 150 ft (QC): 4 1 Step (curb) (QC): 3 4 Steps (QC): 3 PT Plan Treatment/Plan Treatment Plan: Continue Plan of Care Treatment Plan: Bed Mobility, Education, Functional Activity Mary Alice, Functional Strength, Group Therapy, Gait, Safety, Therapeutic Exercise, Transfers Treatment Duration: May 28, 2023 Frequency: 6 times per week Estimated Hrs Per Day: .25 hour per day Patient and/or Family Agrees t: Yes Safety Risks/Education Patient Education: Transfer Techniques Teaching Recipient: Patient Teaching Methods: Demonstration, Discussion Response to Teaching: Reinforcement Needed Time Time In: 1111 Time Out: 1126 DATE: Apr 21, 2023 Total Billed Treatment Time: 15 Total Billed Treatment Visit, UNIQUE OLIVA PT Apr 21, 2023 14:50
[2023-04-21 16:33] VITALS: BP 112/56
[2023-04-21] MEDS: polyethylene glycoL POWDER 17 GM (MIRALAX) PACK PO SCH (20:18)
[2023-04-21] MEDS: ENOXAPARIN 40 MG/0.4 ML (LOVENOX) SYR SQ SCH (20:51)
[2023-04-21 23:30] VITALS: BP 143/72
[2023-04-22 06:23] LABS: BASOPHILS # (AUTO) 0.1 10^3/uL (0.0-0.1); BASOPHILS % (AUTO) 1 % (0-10); MEAN CORPUSCULAR VOLUME 83 fL (80-99)
[2023-04-22 06:25] LABS: EOSINOPHILS # (AUTO) 0.1 10^3/uL (0.0-0.3); EOSINOPHILS % (AUTO) 1 % (0-10); HEMATOCRIT 32 % (40-54); LYMPHOCYTES # (AUTO) 1.6 10^3/uL (1.0-4.0); LYMPHOCYTES % (AUTO) 27 % (12-44); MEAN CORPUSCULAR HEMOGLOBIN 29 pg (25-34); MEAN CORPUSCULAR HGB CONC 35 g/dL (32-36); MEAN PLATELET VOLUME 12.9 fL (9.0-12.2); MONOCYTES # (AUTO) 0.7 10^3/uL (0.0-1.0); MONOCYTES % (AUTO) 12 % (0-12); NEUTROPHILS # (AUTO) 3.5 10^3/uL (1.8-7.8); NEUTROPHILS % (AUTO) 59 % (42-75); PLATELET COUNT 93 10^3/uL (130-400); WHITE BLOOD COUNT 5.9 10^3/uL (4.3-11.0)
[2023-04-22 06:35] LABS: ALBUMIN 2.9 GM/DL (3.2-4.5)
[2023-04-22 06:36] LABS: POTASSIUM 4.1 MMOL/L (3.6-5.0)
[2023-04-22 06:37] LABS: CALCIUM 8.9 MG/DL (8.5-10.1)
[2023-04-22 06:38] LABS: TOTAL PROTEIN 6.5 GM/DL (6.4-8.2)
[2023-04-22 06:40] LABS: BILIRUBIN,TOTAL 2.7 MG/DL (0.1-1.0)
[2023-04-22 06:42] LABS: CREATININE SERUM 0.93 MG/DL (0.60-1.30)
[2023-04-22 07:45] VITALS: BP 115/56
[2023-04-22] MEDS: SPIRONOLACTONE 25 MG (ALDACTONE) TAB PO SCH (08:55)
[2023-04-22] MEDS: FUROSEMIDE 40 MG (LASIX) TAB PO SCH (08:55)
[2023-04-22] MEDS ORDERED: SPIR25TA5 PO (12:30)
[2023-04-22] MEDS ORDERED: FURO40TA4 PO (12:30)
--- NOTE | 2023-04-22 12:31 | Discharge Summary ---
Discharge Summary Hospital Course Was the Problem List Reviewed?: Yes Problems/Dx: (1) Anasarca (2) Weakness Status: Acute Hospital Course Date of Admission: Apr 16, 2023 at 09:55 Admission Diagnosis : [facility] Date of Discharge: 04/22/23 Discharge Diagnosis: [ ] Hospital Course: Uneventful hospital course after he was admitted given IV Lasix for diuresis due to anasarca from liver failure and diastolic congestive heart failure. He recovered nicely with diuresis and he was switched to spironolactone and Lasix. Overall he was back to his baseline we did initiate a prescription for a wheelchair he will be cared for in the home after nursing homes refused to take him and he was discharged in improved condition. Labs and Pending Lab Test: Laboratory Tests 04/22/23 05:36: White Blood Count 5.9, Red Blood Count 3.84L, Hemoglobin 11.0L, Hematocrit 32L, Mean Corpuscular Volume 83, Mean Corpuscular Hemoglobin 29, Mean Corpuscular Hemoglobin Concent 35, Red Cell Distribution Width 16.9H, Platelet Count 93L, Mean Platelet Volume 12.9H, Immature Granulocyte % (Auto) 0, Neutrophils (%) (Auto) 59, Lymphocytes (%) (Auto) 27, Monocytes (%) (Auto) 12, Eosinophils (%) (Auto) 1, Basophils (%) (Auto) 1, Neutrophils # (Auto) 3.5, Lymphocytes # (Auto) 1.6, Monocytes # (Auto) 0.7, Eosinophils # (Auto) 0.1, Basophils # (Auto) 0.1, Immature Granulocyte # (Auto) 0.0, Percent Immature Platelet Fraction 12.0H, Sodium Level 138, Potassium Level 4.1, Chloride Level 102, Carbon Dioxide Level 29, Anion Gap 7, Blood Urea Nitrogen 17, Creatinine 0.93, Estimat Glomerular Filtration Rate 89, BUN/Creatinine Ratio 18, Glucose Level 87, Calcium Level 8.9, Corrected Calcium 9.8, Total Bilirubin 2.7H, Aspartate Amino Transf (AST/SGOT) 67H, Alanine Aminotransferase (ALT/SGPT) 20, Alkaline Phosphatase 193H, Total Protein 6.5, Albumin 2.9L Home Meds Active Furosemide 40 Mg Tablet 80 Mg PO DAILY Spironolactone 25 Mg Tablet 25 Mg PO DAILY Reported Invega Sustenna (Paliperidone Palmitate) 234 Mg/1.5 Ml Syringe 234 Mg IM MONTHLY Assessment/Pt Instructions PCP in 1 week Discharge Planning: <30 minutes discharge planning Discharge Instructions Discharge Diet: No Restrictions Discharge Physical Examination Vital Signs Vital Signs Date Time Temp Pulse Resp B/P (MAP) Pulse Ox O2 Delivery O2 Flow Rate FiO2 04/22/23 08:00 97 Nasal Cannula 2.00 04/22/23 07:45 37.1 80 15 115/56 (75) General Appearance: No Apparent Distress, WD/WN, Chronically ill Allergies: Coded Allergies: No Known Drug Allergies (Unverified , 04/14/23) Discharge Summary Date of Admission Apr 16, 2023 at 09:55 Date of Discharge Discharge Date: Apr 22, 2023 Discharge Diagnosis Assessment: Anasarca Liver failure CHF Plan: Monitor closely PETROS SMITH DO Apr 22, 2023 12:31
[2023-04-22 12:59] VITALS: BP 115/56
--- NOTE | 2023-04-22 15:31 | Physical Therapy Daily Note ---
PT Daily Note-Current Subjective Patient lying supine in bed upon PT arrival, agreeable to treatment. Patient rates pain at 0/10 Pain Section J - Health Conditions 1. Rarely or not at all 2. Occasionally 3. Frequently 4. Almost constantly 8. Unable to answer Pain Effect on Sleep: 1 Pain Interference with Therapy: 1 Pain Interference w/Day-to-Day: 1 Mental Status Patient Orientation: Person Transfers SCALE: Activities may be completed with or without assistive devices. 0-Bvcozqqcwm-oebkigj completes the activity by him/herself with no assistance from a helper. 5-Set-up or Clean-up Assistance-helper sets up or cleans up; patient completes activity. [place] assists only prior to or following the activity. 4-Supervision or Touching Assistance-helper provides verbal cues and/or touching/steadying and/or contact guard assistance as patient completes activity. Assistance may be provided throughout the activity or intermittently. 3-Partial/Moderate Assistance-helper does LESS THAN HALF the effort. [place] lifts, holds or supports trunk or limbs, but provides less than half the effort. 2-Substantial/Maximal Assistance-helper does MORE THAN HALF the effort. [place] lifts or holds trunk or limbs and provides more than half the effort. 9-Wxoxhnkni-qukftc does ALL the effort. Patient does none of the effort to complete the activity. Or, the assistance of 2 or more helpers is required for the patient to complete the activity. If activity was not attempted, code reason: 7-Patient Refused. 9-Not Applicable-not attempted and the patient did not perform the activity before the current illness, exacerbation or injury. 10-Not Attempted due to Environmental Limitations-(lack of equipment, weather restraints, etc.). 88-Not Attempted due to Medical Conditions or Safety Concerns. Roll Left & Right (QC): 4 Sit to Lying (QC): 4 Lying to Sitting/Side of Bed(Q: 4 Sit to Stand (QC): 4 Chair/Ukg-mc-Rxnvt Xfer(QC): 4 Weight Bearing Right Lower Extremity: Right Full Weight Bearing Left Lower Extremity: Left Full Weight Bearing Gait Training Does the Patient Walk?: Yes Distance: 15 feet Walk 10 feet (QC): 4 Gait Persons Needed: 1 Gait Assistive Device: FWW Assessment Current Status: Fair Progress Patient tolerated treatment fair. Patient performs all bed mobility and transfers with SBA. Patient ambulates 15 feet with FWW, with CGA in room. Patient in Chair post treatment with all needs met, nursing notified, call light in hand. PT Penitentiary Goals Penitentiary Goals PT Child Development Assistant Goals Time Frame: May 23, 2023 Roll Left & Right (QC): 6 Sit to Lying (QC): 6 Lying-Sitting on Side/Bed(QC): 6 Sit to Stand (QC): 5 Chair/Wty-vp-Dapbh Xfer(QC): 5 Toilet Transfer (QC): 5 Does the Patient Walk: Yes Walk 10 feet (QC): 4 Walk 50ft with 2 Turns (QC): 4 Walk 150 ft (QC): 4 1 Step (curb) (QC): 3 4 Steps (QC): 3 PT Plan Treatment/Plan Treatment Plan: Continue Plan of Care Treatment Plan: Bed Mobility, Education, Functional Activity Mary Alice, Functional Strength, Group Therapy, Gait, Safety, Therapeutic Exercise, Transfers Treatment Duration: May 28, 2023 Frequency: 6 times per week Estimated Hrs Per Day: .25 hour per day Patient and/or Family Agrees t: Yes Safety Risks/Education Patient Education: Gait Training, Transfer Techniques Teaching Recipient: Patient Teaching Methods: Demonstration, Discussion Response to Teaching: Reinforcement Needed Time Time In: 1513 Time Out: 1523 DATE: Apr 22, 2023 Total Billed Treatment Time: 10 Total Billed Treatment Visit, GT UNIQUE DUMONT PT Apr 22, 2023 15:31
[2023-04-22 16:03] VITALS: BP 101/51
--- NOTE | 2023-04-22 16:21 | D/C HH Face to Face Order ---
D/C Face to Face Orders Reconcile Patient Problems Problems Reviewed?: Yes Instructions for Patient Via [facility], Patient Instructions/FollowUp: PCP 1 week Physician to follow Patient: [facility] Discharge Diet for Home: No Restrictions Patient Problems: Debility Patient Data-Allergies,Ht & Wt Patient Allergies: Coded Allergies: No Known Drug Allergies (Unverified , 04/14/23) Height (Feet): 6 Height (Inches): 3.00 Weight (Pounds): 237 Weight (Ounces): 4.0 Home Health Need/Face to Face Date of Face to Face: Apr 22, 2023 Clinical Findings: Generalized weakness and fatigue, Instability, Muscle weakness I have seen Pt [id number]-ac-[id number]: Yes Discharged To: Home Diagnosis/Conditions: Debility Patient is Homebound due to: Mao fall risk due to instabilty, Muscle weakness Homebound Status Due to the above stated illness, injury or surgical procedure (medical condition or diagnosis) and associated clinical findings, the patient is homebound because of his/her inability to leave home except with aid of a supportive device and/or person AND leaving the home requires a considerable and taxing effort or is medically contraindicated. Pt req the following assistanc: [facility] Nursing Orders Home Health Services Order: Nursing Services, Gas Regulator Repairer-Evaluate & Treat, Physical Therapy-Evaluate & Treat Home Health Infusion Therapy Line Start Date: Apr 14, 2023 Certify Stmt I certify that this patient is under my care and that I, a nurse practitioner or a physician; a physician assistant certified working with me, had a face to face encounter that - meets the physician face to face encounter requirements with this patient as dated. PETROS SMITH DO Apr 22, 2023 16:21
== END 2023-04-22 16:44 | disposition home health service (06) | DRG 441 ==
LOC: EDUNIT# 11:15 → ER 11:17 → 4TH 14:46 → OBSVTOIN 04-16 09:55 → 4TH 04-17 13:24
PROVIDERS: ADMIT Family Medicine; ATTEND Internal Medicine
PROC: 0W9G3ZZ Drainage of Peritoneal Cavity, Percutaneous Approach (ICD-10-PCS; principal; 2023-04-15)
DX: K72.10 Chronic hepatic failure without coma (principal); I50.43 Acute on chronic combined systolic (congestive) and diastolic (congestive) heart failure; I42.0 Dilated cardiomyopathy; B18.2 Chronic viral hepatitis C; R60.1 Generalized edema; I27.29 Other secondary pulmonary hypertension; D69.6 Thrombocytopenia, unspecified; E87.6 Hypokalemia; R53.1 Weakness; Z99.81 Dependence on supplemental oxygen; J43.9 Emphysema, unspecified; K59.00 Constipation, unspecified; E11.9 Type 2 diabetes mellitus without complications; F17.210 Nicotine dependence, cigarettes, uncomplicated; F20.9 Schizophrenia, unspecified; Z86.73 Personal history of transient ischemic attack (TIA), and cerebral infarction without residual deficits; Z79.82 Long term (current) use of aspirin; Z79.1 Long term (current) use of non-steroidal anti-inflammatories (NSAID); Z79.899 Other long term (current) drug therapy
CPT/HCPCS: 36415; 71045; 74177; 76705; 80053; 80074; 81000; 82042; 82947; 83690; 83880; 84157; 85007; 85025; 85027; 87522; 89051; 93306; 94760; G0378

== ENCOUNTER 2023-07-05 10:44 | Inpatient (IN) | payer MEDICAID ==
[~2023-07-05] VITALS: Ht 182 cm; Wt 123.2 kg
[~2023-07-05 10:44] MED LIST changes: +FURO40TA4 PO; -MECL-149 PO; +MECL-291 PO; +PALI234D IM; +SPIR25TA5 PO
[2023-07-05] MEDS ORDERED: NS IV 1000 ML 1,000 ML IV STA (11:07)
--- NOTE | 2023-07-05 11:07 | ED General ---
General Chief Complaint: Altered Mental Status Stated Complaint: GENERAL Nursing Triage Note: PT ARRIVED PER EMS, PT WAS FOUND OUTSIDE ON GROUND, UNKNOWN IF HE FELL OR IF HE JUST LAID DOWN. PT HAS MENTAL DISABILITY AND LIVES W BROTHER. BROTHER STATES MORE CONFUSED THAT USUAL AND EYES ARE ALWAY LOOKING TOWARDS RIGHT AND UPWARDS. PT IS ABLE TO MOVE ALL EXT AND STAND AT SCENE Source of Information: Caregiver, EMS Exam Limitations: No Limitations History of Present Illness Date Seen by Provider: Jul 05, 2023 Time Seen by Provider: 10:50 Initial Comments Patient is a 68-year-old male brought to the emergency department by ambulance chief complaint exposure. He was found outside by family. History of intellectual disability, hep C, hypertension. Apparently he wandered outside at some point and was found lying next to the front porch. EMS reported temperature of 82/83. Rectal temp on arrival her temp probe 81.3. The patient is awake, responsive. He has dysarthria but I still am able to understand about 50% of what he says. No obvious outward signs of trauma. He has a small abrasion on his right gary. No bony point tenderness. Heart is regular, bradycardic. He is a smoker. His qyugth-hq-uyh who helps take care of him states that he probably went outside to smoke. Timing/Duration: Other (unknown) Severity: Severe Physician Addendum Addendum I was called to the ICU 07/06/23 at 1930 for intubation due to the patient's AMS and inability to protect his airway. ICU nurse spoke with the patient's brother and he was agreeable to intubation. Patient's VS reviewed and stable. His blood sugar was good. He moaned with sternal rub but did not open his eyes or have purposeful movement. Pupils noted to be very very tiny/pinpoint. He had been verbal/conversant all day up until abut 7pm. Patient was pre-oxygenated with BVM and sedated with etomidate 20mg, chemically paralyzed with rocuronium 50mg. Glidescope used for visulaization of the cords and the patient was successfully intubated with 8-0 ett; secured at 24cm at the lip. Pos ETCo2., equal BS bilaterally. I exited the ICU with post intubation film pending and eICU taking over care. Progress 22:28 Allergies and Home Medications Allergies Coded Allergies: No Known Drug Allergies (Unverified , 04/14/23) Patient Home Medication List Home Medication List Reviewed: Yes Aspirin (Aspirin EC) 81 Mg Tablet.dr, 81 MG PO DAILY, (Reported) Entered as Reported by: JOSS MULLINS on 07/06/231201 Last Action: Continued Carvedilol (Carvedilol) 3.125 Mg Tablet, 3.125 MG PO BID, (Reported) Entered as Reported by: JOSS MULLINS on 07/06/231201 Last Action: Held Furosemide (Furosemide) 40 Mg Tablet, 40 MG PO DAILY, (Reported) Entered as Reported by: JOSS MULLINS on 07/06/231201 Last Action: Held Paliperidone Palmitate (Invega Trinza) 819 Mg/2.63 Ml Syringe, 819 MG IJ EVERY 3 MONTHS, (Reported) Entered as Reported by: JOSS MULLINS on 07/06/231201 Last Action: Reviewed Potassium Chloride (K-Tab ER) 10 Meq Tablet.er, 10 MEQ PO DAILY, (Reported) Entered as Reported by: JOSS MULLINS on 07/06/231201 Last Action: Held Sacubitril/Valsartan (Entresto 24 mg-26 mg Tablet) 24 Mg-26 Mg Tablet, 1 EA PO BID, (Reported) Entered as Reported by: JOSS MULLINS on 07/06/231201 Last Action: Held Discontinued Medications Furosemide (Furosemide) 40 Mg Tablet, 80 MG PO DAILY Discontinued Reason: No Longer Taking Prescribed by: PETROS SMITH on 04/22/23 1230 Last Action: Discontinued Paliperidone Palmitate (Invega Sustenna) 234 Mg/1.5 Ml Syringe, 234 MG IM MONTHLY, (Reported) Discontinued Reason: No Longer Taking Entered as Reported by: JOSS MULLINS on 04/15/23 1515 Last Action: Discontinued Spironolactone (Spironolactone) 25 Mg Tablet, 25 MG PO DAILY Discontinued Reason: No Longer Taking Prescribed by: PETROS SMITH on 04/22/23 1230 Last Action: Discontinued Review of Systems Review of Systems Constitutional: see HPI unable to obtain secondary to dysarthria and likely confusion Past Sgipzap-Nzlede-Bjtpcz Hx Immunizations Up To Date Tetanus Booster (TDap): More than 5yrs First/Initial COVID19 Vaccinat: 2020 Second COVID19 Vaccination Alon: 2020 Seasonal Allergies Seasonal Allergies: No Past Medical History Surgery/Hospitalization HX: EMPHYSEMA, STROKE (2017), SCHIZOPHRENIA Surgeries: No Respiratory: No Asthma Currently Using CPAP: No Currently Using BIPAP: No Cardiac: No Neurological: Yes (? MENTALLY CHALLENGED ?--FROM DRUG USE AND OR/INJURY PER FAMILY) Sexually Transmitted Disease: No HIV/AIDS: No Genitourinary: No Gastrointestinal: No Musculoskeletal: No Endocrine: Yes Diabetes, Non-Insulin dep HEENT: Yes Chronic Ear Infection Hearing Impairment: Denies Cancer: No Psychosocial: Yes Anxiety, Bipolar, Depression Integumentary: No Blood Disorders: No Family Medical History Myocardial infarction 19 FATHER, Onset:Unknown Physical Exam Vital Signs Vital Signs - First Documented 07/05/23 07/05/23 10:45 12:42 Temp 27.4 Pulse 49 Resp 24 B/P (MAP) 142/110 (121) Pulse Ox 96 O2 Delivery Room Air Capillary Refill : Less Than 3 Seconds Height, Weight, BMI Height: 6'3.00" Weight: 237lbs. 4.0oz. 107.457836hp; 35.45 BMI Method:Stated General Appearance: No Apparent Distress, WD/WN, Obese Eyes: Bilateral Eye Normal Inspection HEENT: PERRL/EOMI (small pupils 2mm; patient intermittently has rightward and upward gaze), Moist Mucous Membranes Neck: Normal Inspection Respiratory: Lungs Clear, Normal Breath Sounds, No Accessory Muscle Use, No Respiratory Distress Cardiovascular: Normal Peripheral Pulses, Bradycardia Gastrointestinal: Non Tender, Soft Extremity: Normal Inspection, Normal Range of Motion Neurologic/Psychiatric: Alert, Other (dysarthric speech, but able to understand him some; follows commands) Skin: Normal Color, Cool (very cold skin) Focused Exam Lactate Level Lactic Acid Level Laboratory Tests Test 07/05/23 11:40 Lactic Acid Level 3.36 MMOL/L (0.50-2.00) *H Progress/Results/Core Measures Suspected Sepsis SIRS Temperature: Pulse: 49 Respiratory Rate: 24 Laboratory Tests 07/05/23 10:53: White Blood Count 3.8L Blood Pressure 142 /110 Mean: 121 Laboratory Tests 07/05/23 10:53: Creatinine 1.16, INR Comment 1.6H, Platelet Count 50L, Total Bilirubin 3.0H Results/Orders Lab Results Laboratory Tests Test 07/05/23 10:53 07/05/23 11:40 07/05/23 12:13 Range/Units White Blood Count 3.8 L 4.3-11.0 10^3/uL Red Blood Count 3.72 L 4.30-5.52 10^6/uL Hemoglobin 10.3 L 13.3-17.7 g/dL Hematocrit 31 L 40-54 % Mean Corpuscular Volume 83 80-99 fL Mean Corpuscular Hemoglobin 28 25-34 pg Mean Corpuscular Hemoglobin Concent 34 32-36 g/dL Red Cell Distribution Width 22.5 H 10.0-14.5 % Platelet Count 50 L 130-400 10^3/uL Mean Platelet Volume 9.0-12.2 fL Immature Granulocyte % (Auto) 0 % Neutrophils (%) (Auto) 80 H 42-75 % Lymphocytes (%) (Auto) 14 12-44 % Monocytes (%) (Auto) 5 0-12 % Eosinophils (%) (Auto) 0 0-10 % Basophils (%) (Auto) 0 0-10 % Neutrophils # (Auto) 3.1 1.8-7.8 10^3/uL Lymphocytes # (Auto) 0.6 L 1.0-4.0 10^3/uL Monocytes # (Auto) 0.2 0.0-1.0 10^3/uL Eosinophils # (Auto) 0.0 0.0-0.3 10^3/uL Basophils # (Auto) 0.0 0.0-0.1 10^3/uL Immature Granulocyte # (Auto) 0.0 0.0-0.1 10^3/uL Percent Immature Platelet Fraction 18.0 H 0.0-7.6 % Prothrombin Time 18.9 H 12.2-14.7 SEC INR Comment 1.6 H 0.8-1.4 Activated Partial Thromboplast Time 46 H 24-35 SEC Sodium Level 142 135-145 MMOL/L Potassium Level 5.4 H 3.6-5.0 MMOL/L Chloride Level 105 98-107 MMOL/L Carbon Dioxide Level 21 21-32 MMOL/L Anion Gap 16 H 5-14 MMOL/L Blood Urea Nitrogen 17 7-18 MG/DL Creatinine 1.16 0.60-1.30 MG/DL Estimat Glomerular Filtration Rate 68 BUN/Creatinine Ratio 15 Glucose Level 106 H 70-105 MG/DL Calcium Level 9.3 8.5-10.1 MG/DL Corrected Calcium 9.9 8.5-10.1 MG/DL Total Bilirubin 3.0 H 0.1-1.0 MG/DL Aspartate Amino Transf (AST/SGOT) 57 H 5-34 U/L Alanine Aminotransferase (ALT/SGPT) 18 0-55 U/L Alkaline Phosphatase 143 H 40-136 U/L Total Creatine Kinase 269 H 30-200 U/L Total Protein 8.3 H 6.4-8.2 GM/DL Albumin 3.2 3.2-4.5 GM/DL Lactic Acid Level 3.36 *H 0.50-2.00 MMOL/L Urine Color YELLOW Urine Clarity CLEAR Urine pH 5.5 5-9 Urine Specific Corry 1.020 1.016-1.022 Urine Protein 1+ H NEGATIVE Urine Glucose (UA) NEGATIVE NEGATIVE Urine Ketones NEGATIVE NEGATIVE Urine Nitrite POSITIVE H NEGATIVE Urine Bilirubin 1+ H NEGATIVE Urine Urobilinogen 4.0 < = 1.0 MG/DL Urine Leukocyte Esterase 1+ H NEGATIVE Urine RBC (Auto) TRACE H NEGATIVE Urine RBC RARE /HPF Urine WBC 2-5 /HPF Urine Squamous Epithelial Cells NONE /HPF Urine Crystals NONE /LPF Urine Bacteria NEGATIVE /HPF Urine Casts NONE /LPF Urine Mucus NEGATIVE /LPF Urine Culture Indicated CULTURE PENDING Micro Results Microbiology 07/05/23 Urine Culture - Preliminary, Resulted Probable Coag Negative Staph 07/05/23 Blood Culture - Preliminary, Resulted 07/05/23 Blood Culture - Preliminary, Resulted My Orders Orders - BLACK MORTENSEN MD Cbc And Automated Diff (07/05/23 11:07) Comprehensive Metabolic Panel (07/05/23 11:07) Blood Culture (07/05/23 11:07) Sputum Culture (07/05/23 11:07) Urinalysis (07/05/23 11:07) Urine Culture (07/05/23 11:07) Protime With Inr (07/05/23 11:07) Partial Thromboplastin Time (07/05/23 11:07) Chest 1 View, Ap/Pa Only (07/05/23 11:07) Ed Iv/Invasive Line Start (07/05/23 11:07) Ed Iv/Invasive Line Start (07/05/23 11:07) Vital Signs Adult Sepsis Patie Q15M (07/05/23 11:07) O2 (07/05/23 11:07) Remove Rings In Anticipation O (07/05/23 11:07) Lactic Acid Analyzer (07/05/23 11:07) Ekg Tracing (07/05/23 11:07) Catheter(Urinary) Insert & Ass 03,15 (07/05/23 11:07) Lidocaine 2% (Urojet) (Lidocaine 2% (Uro (07/05/23 11:15) Ns Iv 1000 Ml (Ns Iv 1000 Ml) (07/05/23 11:07) Ct Head/Cervical Spine Wo (07/05/23 11:14) Creatine Kinase (07/05/23 11:14) Ed Admission (Communication) (07/05/23 12:51) Ns Iv 1000 Ml (Ns Iv 1000 Ml) (07/05/23 13:00) Medications Given in ED Vital Signs/I&O 07/05/23 07/05/23 10:45 12:42 Temp 27.4 28.6 Pulse 49 47 Resp 24 27 B/P (MAP) 142/110 (121) 122/76 Pulse Ox 96 98 O2 Delivery Room Air Capillary Refill : Less Than 3 Seconds Blood Pressure Mean: 121 Progress Note : Time: 12:37 Progress Note Patient seen and evaluated by me. Evaluation today includes physical exam, "sepsis protocol" CBC, Chem-12, blood cultures with lactic acid, UA, urine culture, total CK, EKG, coag profile, single view chest x-ray, CT head and cervical spine without contrast. Pertinent physical exam findings well- developed well-nourished obese male who is awake and mumbling almost unintelligibly. Skin very cold to the touch.He does intermittently have recognizable speech. He has no obvious outward signs of trauma. Occasionally will have superior and white rightward gaze. Pinpoint pupils bilaterally. Edentulous. TM's clear bilaterally. Heart is regular, bradycardic. Blood pressure is normal range. Abdomen soft. No LE edema. Not following commands well but is noted to be moving all 4 extremities. REctal temp probe indicated core temp of 81.3 (which is consistent with Tympanic temp of 83 Differential diagnosis includes severe hypothermia Patient's labs independently reviewed and interpreted by me. Is single view chest x-ray and EKG. ECG shows a total white blood cell count of 3.8 with 80% segmented neutrophils. Hemoglobin is 10.3 hematocrit 31 platelets low at 50 which is a little below his normal baseline. On chemistry his potassium is 5.4. BUN and creatinine 17 and 1.16. Sugar is normal at 106. Bilirubin is 3.0, AST 57. Total CK elevated at 269. His lactic acid is 3.36. Coags are elevated with a PT of 18.9, INR 1.6 PTT of 46. Urine from [place] shows 1+ leukocyte Estrace, nitrite +2-5 white blood cells, no squamous epithelial cells. His chest x-ray shows mild to moderate increased pulmonary vascular congestion. CT head and cervical spine read by the radiologist indicates no acute intracranial abnormality and no cervical spine fracture. Patient is treated with warm saline x2 L. He has maintained his blood pressure. His heart rate currently seems to be climbing from the low 40s into the 50 range. He has a bear hugger in place. Extremities are left exposed. I have discussed the case with Dr. Chao the resident on-call for [facility] service. Patient will be admitted to the ICU for monitoring and treatment. e-ICU aware (Dr Todd) ECG Initial ECG Impression Date: Jul 05, 2023 Initial ECG Impression Time: 11:47 Initial ECG Rate: 46 Initial ECG Rhythm: Normal Sinus, S.Bennett Comment low voltage throughout. no ST elevation or depressions. No ectopy Diagnostic Imaging Diagonstic Imaging: Xray Comments [facility] [place] NAME: SONIDO DE LA CRUZ [facility] REC#: [id number] PT STATUS: REG ER : 1955 PHYSICIAN: BLACK MORTENSEN MD ADMIT DATE: 07/05/23/ER Draft Date of Exam:07/05/23 CHEST 1 VIEW, AP/PA ONLY INDICATION: hypothermia TECHNIQUE: Single-view chest at 11:35 a.m. CORRELATION STUDY: 04/14/2023. FINDINGS: Heart size and mediastinum are enlarged and prominent, appears increased from prior. Vasculature is also increased. Scattered patchy mixed alveolar and interstitial opacities throughout both lung painting, left greater than right. More focal scar-like formation in the right upper lobe. IMPRESSION: 1. Cardiac enlargement with what appears to be likely qzle-hh-sqjwanky edema. Superimposed mixed pulmonary infiltrate-like opacities, left greater than right, may be reflective of asymmetric edema versus infiltrate. Follow-up imaging recommended. Dictated on workstation # [id number] Dict: 07/05/23 1142 Trans: 07/05/23 1200 AS6 [id number] Interpreted by: MIHIR JACKSON DO Electronically signed by: [facility] Imaging: CT Comments [facility] [place] NAME: SONIDO DE LA CRUZ [facility] REC#: [id number] PT STATUS: REG ER : 1955 PHYSICIAN: BLACK MORTENSEN MD ADMIT DATE: 07/05/23/ER Draft Date of Exam:07/05/23 CT HEAD/CERVICAL SPINE WO PROCEDURE: CT head and CT cervical spine without contrast. TECHNIQUE: Multiple contiguous axial images were obtained through the brain and cervical spine without the use of intravenous contrast. Sagittal and coronal reformations through the cervical spine were then performed. Auto Exposure Controls were utilized during the CT exam to meet ALARA standards for radiation dose reduction. INDICATION: 68-year-old male, found down outside. Recently with increasing confusion. CORRELATION STUDY: CT head of 03/15/2023. FINDINGS: CT HEAD: Ventricles and sulci are with generalized atrophic changes but appear stable. Scattered areas of decreased attenuation, likely chronic small vessel ischemic disease. No regional area of edema. No intracranial hemorrhage. Prominent intracranial vascular calcification without asymmetric hyperdense intracranial vascular sign. Paranasal sinus and right mastoid air cells are clear. There is near-complete opacification of the left mastoid air cells with prominent likely cerumen in the left external auditory canal. Question bony destructive change. CT CERVICAL SPINE: Straightening and reversal of the normal cervical lordosis. No acute fracture or traumatic subluxation. Various degrees of disc space narrowing and endplate osteophyte formation. Posterior elements are intact and in normal alignment. Odontoid is intact. Vascular calcification in the carotid bifurcation. Mixed alveolar and interstitial infiltrate-like opacities in bilateral lung apices, left greater than right. IMPRESSION: CT HEAD: 1. Negative for acute traumatic intracranial abnormality. Generalized atrophic and involutional changes. 2. Unchanged, chronically opacified and destructive changes of the left mastoid air cells and temporal bone. CT CERVICAL SPINE: 1. Negative for acute fracture or traumatic subluxation. Dictated on workstation # [id number] Dict: 07/05/23 1211 Trans: 07/05/23 1229 AS6 [id number] Interpreted by: MIHIR JACKSON DO Electronically signed by: Critical Care Note Critical Care Start Time: 10:50 Stop Time: 12:37 Total Time (minutes) 40min critical care time in the eval and management of this patient with severe hypothermia. TIme includes initial eval and management of hypothermia with watmed IVF, bear hugger application, review of prior medical records, review and interpretation of labs, ekg and CT/xrays. Discussion with family members as independent historians for the patient; discussion with admitting provider. Departure Communication (Admissions) Time/Spoke to Admitting Phy: 12:[address] Gillespie (resident) for [facility] Service Time/Spoke to Consulting Phy: 12:46 discussed with e-ICU; Dr Todd Impression Primary Impression: Hypothermia Qualified Codes: T68.XXXA - Hypothermia, initial encounter Additional Impressions: Hepatitis C virus infection Qualified Codes: B19.20 - Unspecified viral hepatitis C without hepatic coma Intellectual disability Disposition: ADMITTED INPATIENT Condition: Critical Admissions Decision to Admit Reason: Admit from ER (General) Decision to Admit/Date: Jul 05, 2023 Time/Decision to Admit Time: 12:35 Departure-Patient Inst. Referrals: CHRISTINA LATHAM DO (PCP) Primary Care Physician [facility] (Family) Primary Care Physician Copy Copies To 1: CHRISTINA LATHAM KATHRYN M MD Jul 05, 2023 11:07
[2023-07-05] MEDS ORDERED: LIDOCAINE UROJET 2% GEL 10 ML PKG TOP ONE (11:15)
[2023-07-05 11:16] LABS: BASOPHILS % (AUTO) 0 % (0-10); EOSINOPHILS % (AUTO) 0 % (0-10); HEMOGLOBIN 10.3 g/dL (13.3-17.7); MEAN CORPUSCULAR HEMOGLOBIN 28 pg (25-34); MONOCYTES % (AUTO) 5 % (0-12)
[2023-07-05 11:18] LABS: HEMATOCRIT 31 % (40-54); LYMPHOCYTES # (AUTO) 0.6 10^3/uL (1.0-4.0); LYMPHOCYTES % (AUTO) 14 % (12-44); MEAN CORPUSCULAR HGB CONC 34 g/dL (32-36); MEAN CORPUSCULAR VOLUME 83 fL (80-99); MONOCYTES # (AUTO) 0.2 10^3/uL (0.0-1.0); NEUTROPHILS # (AUTO) 3.1 10^3/uL (1.8-7.8); NEUTROPHILS % (AUTO) 80 % (42-75); WHITE BLOOD COUNT 3.8 10^3/uL (4.3-11.0)
[2023-07-05 11:19] LABS: ALBUMIN 3.2 GM/DL (3.2-4.5); PLATELET COUNT 50 10^3/uL (130-400)
[2023-07-05 11:21] LABS: CALCIUM 9.3 MG/DL (8.5-10.1)
[2023-07-05 11:22] LABS: TOTAL PROTEIN 8.3 GM/DL (6.4-8.2)
[2023-07-05 11:24] LABS: INR 1.6 (0.8-1.4); PROTHROMBIN TIME PATIENT 18.9 SEC (12.2-14.7)
[2023-07-05 11:26] LABS: CREATININE SERUM 1.16 MG/DL (0.60-1.30)
[2023-07-05 11:28] LABS: POTASSIUM 5.4 MMOL/L (3.6-5.0)
--- NOTE | 2023-07-05 12:00 | Diagnostic Imaging Report ---
INDICATION: hypothermia TECHNIQUE: Single-view chest at 11:35 a.m. CORRELATION STUDY: 04/14/2023. FINDINGS: Heart size and mediastinum are enlarged and prominent, appears increased from prior. Vasculature is also increased. Scattered patchy mixed alveolar and interstitial opacities throughout both lung painting, left greater than right. More focal scar-like formation in the right upper lobe. IMPRESSION: 1. Cardiac enlargement with what appears to be likely coli-fo-kjnbikvz edema. Superimposed mixed pulmonary infiltrate-like opacities, left greater than right, may be reflective of asymmetric edema versus infiltrate. Follow-up imaging recommended. Dictated by: Dictated on workstation # [id number]
--- NOTE | 2023-07-05 12:30 | Diagnostic Imaging Report ---
PROCEDURE: CT head and CT cervical spine without contrast. TECHNIQUE: Multiple contiguous axial images were obtained through the brain and cervical spine without the use of intravenous contrast. Sagittal and coronal reformations through the cervical spine were then performed. Auto Exposure Controls were utilized during the CT exam to meet ALARA standards for radiation dose reduction. INDICATION: 68-year-old male, found down outside. Recently with increasing confusion. CORRELATION STUDY: CT head of 03/15/2023. FINDINGS: CT HEAD: Ventricles and sulci are with generalized atrophic changes but appear stable. Scattered areas of decreased attenuation, likely chronic small vessel ischemic disease. No regional area of edema. No intracranial hemorrhage. Prominent intracranial vascular calcification without asymmetric hyperdense intracranial vascular sign. Paranasal sinus and right mastoid air cells are clear. There is near-complete opacification of the left mastoid air cells with prominent likely cerumen in the left external auditory canal. Question bony destructive change. CT CERVICAL SPINE: Straightening and reversal of the normal cervical lordosis. No acute fracture or traumatic subluxation. Various degrees of disc space narrowing and endplate osteophyte formation. Posterior elements are intact and in normal alignment. Odontoid is intact. Vascular calcification in the carotid bifurcation. Mixed alveolar and interstitial infiltrate-like opacities in bilateral lung apices, left greater than right. IMPRESSION: CT HEAD: 1. Negative for acute traumatic intracranial abnormality. Generalized atrophic and involutional changes. 2. Unchanged, chronically opacified and destructive changes of the left mastoid air cells and temporal bone. CT CERVICAL SPINE: 1. Negative for acute fracture or traumatic subluxation. Dictated by: Dictated on workstation # [id number]
[2023-07-05 12:36] LABS: COLOR,URINE YELLOW
[2023-07-05 12:37] LABS: BILIRUBIN,URINE 1+ (NEGATIVE); CLARITY,URINE CLEAR; GLUCOSE, URINE (UA) NEGATIVE (NEGATIVE); KETONES,URINE NEGATIVE (NEGATIVE); LEUKOCYTE ESTERASE ,URINE 1+ (NEGATIVE); NITRITE,URINE POSITIVE (NEGATIVE); PH,URINE 5.5 (5-9); PROTEIN,URINE 1+ (NEGATIVE)
[2023-07-05 12:38] LABS: BACTERIA,URINE NEGATIVE /HPF; RBC,URINE RARE /HPF
[2023-07-05] MEDS: NS IV 1000 ML 1,000 ML IV SCH ×2 (13:15→23:36)
--- NOTE | 2023-07-05 13:36 | History & Physical-Hospitalist ---
LUIS ALFREDO FIGUEREDO MD, RESIDENT 07/05/23 1336: History of Present Illness HPI/Chief Complaint CC: Hypothermia Patient presents to the ED with low body temperature, core temperature was noted to be 81 Fahrenheit. Per family at bedside, patient has a history of intellectual disability, is typically able to ambulate on his own with a walker but does have some gait instability. He had gone out for smoke early in the morning but unknown how long he was out there. Family had found him adding on the bottom step thus was unsure if he fell down the stairs but brought him into the ED for evaluation. In the ED, was noted that he had a low core temperature, bradycardia and significant hypotension. He was ultimately admitted to the ICU for further management. Source: family Date Seen 07/05/23 Time Seen by a Provider: 13:45 Attending Physician Magdalena Odonnell DO PCP Admitting Physician: Gretchen Whyte DO Attending Physician: Gretchen Whyte DO Referring Physician Date of Admission Jul 05, 2023 at 13:22 Home Medications & Allergies Home Medications Reviewed patient Home Medication Reconciliation performed by pharmacy medication reconciliations utility technician and/or nursing. Patients Allergies have been reviewed. Allergies Allergies Coded Allergies No Known Drug Allergies (Unverified04/14/23) Past Qrbppgw-Xfojpr-Ammjsl Hx Patient Social History Tobacco Use?: Yes Tobacco type used: Cigarettes Smoking Status: Current Everyday Smoker Substance use?: No Alcohol Use?: No Pt feels they are or have been: No Immunizations Up To Date First/Initial COVID19 Vaccinat: 2020 Second COVID19 Vaccination Alon: 2020 Tetanus Booster (TDap): Unknown Hepatitis A: No Hepatitis B: No Seasonal Allergies Seasonal Allergies: No Current Status Advance Directives: No Communicates: Verbally Primary Language: Uruguayan Preferred Spoken Language: Uruguayan Is interpretation needed?: No Implanted or Applied Medical D: None Past Medical History Asthma Currently Using CPAP: No Currently Using BIPAP: No Sexually Transmitted Disease: No HIV/AIDS: No Diabetes, Non-Insulin dep Chronic Ear Infection Hearing Impairment: Denies Anxiety, Bipolar, Depression Blood Disorders: No PMHx: Schizophrenia IV Drug Abuse Diabetes Mellitus Type II Seasonal Allergies Tobacco Abuse Stroke SurgHx: Denies Family Medical History Myocardial infarction 17 FATHER, Onset:Unknown Review of Systems ROS-Unable to Obtain: Unable to assess due to speech impediment and confusion due to hypothermia Constitutional: no symptoms reported Physical Exam Physical Exam Vital Signs Vital Signs - First Documented 07/05/23 07/05/23 07/05/23 10:45 12:42 13:40 Temp 27.4 Pulse 49 Resp 24 B/P (MAP) 142/110 (121) Pulse Ox 96 O2 Delivery Room Air O2 Flow Rate 2.00 Capillary Refill : Less Than 3 Seconds Height, Weight, BMI Height: 6'3.00" Weight: 237lbs. 4.0oz. 107.702592vb; BMI Method:Stated General Appearance: No Apparent Distress HEENT: PERRL/EOMI, Scleral Icterus (L), Scleral Icterus (R), Other (Noting rightward and upward gaze, right-sided nystagmus noted) Neck: Normal Inspection, Non Tender Respiratory: Chest Non Tender, Lungs Clear, Normal Breath Sounds, No Accessory Muscle Use, No Respiratory Distress Cardiovascular: No Murmur, Bradycardia Gastrointestinal: Normal Bowel Sounds, Non Tender, Soft, Distended (Mildly) Neurologic/Psychiatric: Alert Skin: Normal Color, Cool Results Results/Procedures Labs Laboratory Tests 07/05/23 10:53 Patient resulted labs reviewed. Imaging: Reviewed Imaging Films, Reviewed Imaging Report Imaging Chest x-ray 07/05/2023: IMPRESSION: 1. Cardiac enlargement with what appears to be likely yfop-bq-meepiznu edema. Superimposed mixed pulmonary infiltrate-like opacities, left greater than right, may be reflective of asymmetric edema versus infiltrate. Follow-up imaging recommended. CT head and C-spine 07/05/2023: IMPRESSION: CT HEAD: 1. Negative for acute traumatic intracranial abnormality. Generalized atrophic and involutional changes. 2. Unchanged, chronically opacified and destructive changes of the left mastoid air cells and temporal bone. CT CERVICAL SPINE: 1. Negative for acute fracture or traumatic subluxation. Assessment/Plan Admission Diagnosis Severe hypothermia Admission Status: Inpatient Order (span 2 midnights) Reason for Inpatient Admission: Severe hypothermia requiring ICU monitoring and rewarming Critical Care Critically Ill Patient Diagnosis/Problems Diagnosis/Problems (1) Hypothermia Status: Acute Assessment & Plan: Presented to the ED with severe hypothermia, core temperatur e noted to be 81 Fahrenheit. Unknown why patient was outside for an extended period of time. CK was noted to be elevated to 269. CT head was negative. Patient also noted to be bradycardic and hypotensive likely due to hypothermia. Core body temperature was already improving with bear hugger in the ED. Continue management in the ICU Continue Judy hugger Continue maintenance fluids with warm IV fluids Warm blanket around the head Monitor on telemetry for any arrhythmias that may develop with rewarming Qualifiers: Encounter type: initial encounter Qualified Codes: T68.XXXA - Hypothermia, initial encounter (2) Hypotension Status: Acute Assessment & Plan: Please secondary to hypothermia. Continue repletion with IV fluids as per above Continue management of hypothermia as per above We will closely monitor to determine if pressors are needed (3) Bradycardia Status: Acute Assessment & Plan: Improving with improvement in body temperature. Likely secondary to hypothermia. Manage per above. Continue monitoring on telemetry. (4) Confusion Status: Acute Assessment & Plan: Unclear cause of why patient was out in the cold for a prolonged period of time. CT head was otherwise negative. UA is noting nitrites and 1+ leukocyte esterase but no WBCs noted and thus unlikely to be UTI. X-ray noting mild to moderate edema and mixed pulmonary infiltrate like opacities left greater than right. Unable to parse out if this is an infection or not. Patient does have elevated lactate but could be due to the hypothermia. No leukocytosis noted, patient is actually leukopenic. Obtain CT chest when patient is stabilized to further assess opacities and edema We will follow-up blood, urine and sputum culture We will start Zosyn for pneumonia treatment for now until further work-up can be obtained Trend lactate (5) Hepatitis C virus infection Status: Chronic Assessment & Plan: Per family, patient was recently diagnosed with hepatitis C. He does have findings of scleral icterus. Had not been started on outpatient treatment as of yet. He did require paracentesis during his last hospitalization. Patient noted to have thrombocytopenia, abnormal coagulation factors and abnormal LFTs likely due to hep C Continue to monitor CMP for now. If worsening LFTs, consider doing abdominal imaging. Holding off for now until patient is stabilized. Qualifiers: Viral hepatitis chronicity: unspecified Hepatic coma status: without hepatic coma Qualified Codes: B19.20 - Unspecified viral hepatitis C without hepatic coma (6) History of stroke Status: Chronic Assessment & Plan: CT head unremarkable. Will reassess mental status once patient is more awake and hypothermia has resolved. (7) Anemia Status: Acute Assessment & Plan: Hemoglobin 10.3 on admission. It appears that patient has anemia noted on prior hospitalization. Likely secondary to liver function. -Continue to monitor with daily CBC. (8) Intellectual disability Status: Acute (9) Schizophrenia Status: Chronic Assessment & Plan: Consider starting home meds once patient has been stabilized and mental status has been adequately assessed. (10) Type 2 diabetes mellitus with unspecified complications Status: Chronic Assessment & Plan: Sliding Scale insulin GRETCHEN WHYTE DO 07/06/23 0508: History of Present Illness HPI/Chief Complaint CC: Exposure HPI: This is a 68yoAAM known to me from prior admit who has an intellectual disability but lives with family who was found outside in the cold for unknown duration. Hypothermia diagnosed and placed in ICU. CXR appears PNA so abx initiated. Source: family Exam Limitations: clinical condition Past Rmmleie-Ixkaxb-Adqano Hx Patient Social History Marrital Status: single Employed/Student: unemployed Smoking Status: Current Everyday Smoker Past Medical History Chronic Edema/Swelling, High Cholesterol, Hypertension Cirrhosis Family Medical History Myocardial infarction 19 FATHER, Onset:Unknown Review of Systems Constitutional: see HPI Physical Exam Physical Exam General Appearance: No Apparent Distress, Chronically ill Respiratory: No Accessory Muscle Use, No Respiratory Distress, Decreased Breath Sounds Cardiovascular: Bradycardia Neurologic/Psychiatric: Alert, Disoriented Assessment/Plan Admission Diagnosis Severe hypothermia PNA Smoker Intellectual delay Plan: IV abx Warming techniques Monitor labs Admission Status: Inpatient Order (span 2 midnights) Reason for Inpatient Admission: hypothermia LUIS ALFREDO FIGUEREDO MD, RESIDENT Jul 05, 2023 13:36 GRETCHEN WHYTE DO Jul 06, 2023 05:08
[2023-07-05] MEDS ORDERED: ONDANSETRON 4 MG ORAL DISSOLVE TABLET PO PRN (14:00)
[2023-07-05] MEDS ORDERED: CALCIUM CARBONATE 500 MG CHEW TABLET PO PRN (14:00)
[2023-07-05] MEDS ORDERED: ACETAMINOPHEN 325 MG TABLET PO PRN (14:00)
[2023-07-05] MEDS ORDERED: ONDANSETRON INJECTION 4 MG/2 ML (SDV) IV PRN (14:00)
[2023-07-05] MEDS ORDERED: BISACODYL 10 MG SUPPOSITORY PR PRN (14:00)
--- NOTE | 2023-07-05 14:06 | Tele-ICU Consult ---
History of Present Illness History of Present Illness Date Seen by Provider: Jul 05, 2023 Time Seen by Provider: 14:01 Date of Admission eICU Critical Care Consult 68 M who has a mental disability found outside home this am with body temperature of 81F, Outside temp in 40's. Pt was lethargic but awake, moving all 4 extremities but had dysarthria. Received 2 l of warm saline, on Bear Hugger, current temp 86 BMP showed potassium 5.4, LA 3.36, Hb 10.3, Cr 1.16, BUN 17, T Bili 3.0, AST 57, CK 269EKG showed a fib with slow V response, low voltage UA showed + nitrates with WBC 2-5 CT head and neck shows no acute process, CXR shows mild congestion Carries Dx of Hep C, schizophrenia, COPD, CVA 2017 Allergies and Home Medications Allergies Coded Allergies: No Known Drug Allergies (Unverified , 04/14/23) Home Medications Furosemide 40 Mg Tablet, 80 MG PO DAILY Prescribed by: PETROS SMITH on 04/22/23 1230 Paliperidone Palmitate 234 Mg/1.5 Ml Syringe, 234 MG IM MONTHLY, (Reported) Spironolactone 25 Mg Tablet, 25 MG PO DAILY Prescribed by: PETROS SMITH on 04/22/23 1230 Past Medical/Social/Family Hx Patient Social History Tobacco Use?: Yes Tobacco type used: Cigarettes Smoking Status: Current Everyday Smoker Substance use?: No Alcohol Use?: No Pt stated abuse/neglect: No Immunizations Up To Date First/Initial COVID19 Vaccinat: 2020 Second COVID19 Vaccination Alon: 2020 Tetanus Booster (TDap): Unknown Hepatitis A: No Hepatitis B: No Current Status Advance Directives: No Communicates: Verbally Primary Language: Colombian Preferred Spoken Language: Colombian Is interpretation needed?: No Implanted or Applied Medical D: None Past Medical History PMHx: Schizophrenia IV Drug Abuse Diabetes Mellitus Type II Seasonal Allergies Tobacco Abuse Stroke SurgHx: Denies Review of Systems Constitutional: see HPI EENTM: see HPI Respiratory: see HPI Cardiovascular: see HPI Gastrointestinal: see HPI Genitourinary: see HPI Musculoskeletal: see HPI Skin: see HPI Psychiatric/Neurological: See HPI Focused Exam Lactate Level 07/05/23 11:40: Lactic Acid Level 3.36*H Height, Weight, BMI Height: 6'3.00" Weight: 237lbs. 4.0oz. 107.519162tp; BMI Method:Stated Lactic Acid Level Laboratory Tests Test 07/05/23 11:40 Lactic Acid Level 3.36 MMOL/L (0.50-2.00) *H Exam Exam Patient acknowledged, consented, and participated in this virtual visit which was conducted using real time audio/video Vital Signs Date Time Temp Pulse Resp B/P (MAP) Pulse Ox O2 Delivery O2 Flow Rate FiO2 07/05/23 12:42 28.6 47 27 122/76 98 Room Air 07/05/23 10:45 27.4 49 24 142/110 (121) 96 Height & Weight Height: 6'3.00" Weight: 237lbs. 4.0oz. 107.896238kl; BMI Method:Stated General Appearance: No Apparent Distress Respiratory: Lungs Clear Cardiovascular: Bradycardia, Irregularly Irregular Capillary Refill: Less Than 3 Seconds Gastrointestinal: normal bowel sounds, soft Extremity: Pedal Edema Results Lab Laboratory Tests 07/05/23 10:53 Assessment/Plan Assessment/Plan Marked hypothermia-continue to warm, HR should improve, Elevated Bilirubin has Hep C, if does not improve will get u/s GB,liver Spoke with charity fundraiser: Critically Ill Patient Time spent with patient (mins): 25 JONY BOYCE MD Jul 05, 2023 14:06
[2023-07-05] MEDS ORDERED: PIPERACILLIN/Tazobactam 4.5 GM in NS (IVPB) 100 ML 100 ML IV ONE (15:15)
[2023-07-05] MEDS: ENOXAPARIN 40 MG/0.4 ML SYRINGE SC SCH (15:25)
[2023-07-05] MEDS: LACTATED RINGERS 1,000 ML 1,000 ML IV SCH ×2 (16:03→21:16)
[2023-07-05] MEDS: inSUlin ASPART 1 UNIT/0.01 ML (PER UNIT) SC SCH ×2 (16:27→21:05)
--- NOTE | 2023-07-05 16:50 | Tele-ICU Progress Note ---
Subjective Date Seen by a Provider: Jul 05, 2023 Time Seen by a Provider: 16:47 Subjective/Events-last exam called for marginal BP, at times 70's/40's, also had run of a fib with RVR but now sinus Temp up to 93F, no rise in WBC, UO about 100 mL/h, I suspect this is due to hypothermia interfering with renal ability to concentrate urine WIll give one liter of LR Continue to warm pt pt is awake but confused at times Sepsis Event Evaluation Height, Weight, BMI Height: 6'3.00" Weight: 237lbs. 4.0oz. 107.634442aw; 35.01 BMI Method:Stated Focused Exam Lactate Level 07/05/23 11:40: Lactic Acid Level 3.36*H 07/05/23 13:55: Lactic Acid Level 2.81*H Lactic Acid Level Laboratory Tests Test 07/05/23 13:55 Lactic Acid Level 2.81 MMOL/L (0.50-2.00) *H Exam Exam Patient acknowledged, consented, and participated in this virtual visit which was conducted using real time audio/video Vital Signs Date Time Temp Pulse Resp B/P (MAP) Pulse Ox O2 Delivery O2 Flow Rate FiO2 07/05/23 16:00 32.9 71 17 89/56 (68) Nasal Cannula 2.00 07/05/23 15:00 31.8 67 21 87/55 (68) Nasal Cannula 2.00 07/05/23 14:00 30.6 53 12 77/53 (63) 92 Nasal Cannula 2.00 07/05/23 13:45 Nasal Cannula 2.00 07/05/23 13:40 29.8 52 18 92/57 (69) 97 Nasal Cannula 2.00 07/05/23 12:42 28.6 47 27 122/76 98 Room Air 07/05/23 10:45 27.4 49 24 142/110 (121) 96 Height & Weight Height: 6'3.00" Weight: 237lbs. 4.0oz. 107.919213bo; 35.01 BMI Method:Stated General Appearance: No Apparent Distress HEENT: PERRL/EOMI, Scleral Icterus (L), Scleral Icterus (R), Other (Noting rightward and upward gaze, right-sided nystagmus noted) Neck: Normal Inspection, Non Tender Respiratory: Chest Non Tender, Lungs Clear, Normal Breath Sounds, No Accessory Muscle Use, No Respiratory Distress Cardiovascular: No Murmur, Bradycardia Capillary Refill: Less Than 3 Seconds Gastrointestinal: normal bowel sounds, soft Extremity: Pedal Edema Neurologic/Psychiatric: Alert Skin: Normal Color, Cool Results Lab Laboratory Tests 07/05/23 10:53 Assessment/Plan Assessment/Plan called for marginal BP, at times 70's/40's, also had run of a fib with RVR but now sinus Temp up to 93F, no rise in WBC, UO about 100 mL/h, I suspect this is due to hypothermia interfering with renal ability to concentrate urine WIll give one liter of LR Continue to warm pt pt is awake but confused at times Critical Care: Critically Ill Patient Time spent with patient (mins): 20 JONY BOYCE MD Jul 05, 2023 16:50
[2023-07-05] MEDS ORDERED: NICOTINE 14 MG PATCH TD ONE (17:00)
[2023-07-05] MEDS ORDERED: LACTATED RINGERS 1,000 ML 1,000 ML IV SCH (17:00)
--- NOTE | 2023-07-05 18:22 | Tele-ICU Progress Note ---
Subjective Date Seen by a Provider: Jul 05, 2023 Time Seen by a Provider: 18:21 Subjective/Events-last exam BP still low after 1000 IV bolus, has peripheral line, will start IV levo up to 5 and if have to go higher will need either PICC or central line Sepsis Event Evaluation Height, Weight, BMI Height: 6'3.00" Weight: 237lbs. 4.0oz. 107.151089tv; 35.01 BMI Method:Stated Focused Exam Lactate Level 07/05/23 11:40: Lactic Acid Level 3.36*H 07/05/23 13:55: Lactic Acid Level 2.81*H Exam Exam Patient acknowledged, consented, and participated in this virtual visit which was conducted using real time audio/video Vital Signs Date Time Temp Pulse Resp B/P (MAP) Pulse Ox O2 Delivery O2 Flow Rate FiO2 07/05/23 18:00 34.0 51 14 78/64 (70) 94 Nasal Cannula 2.00 07/05/23 17:00 33.2 68 16 84/61 (69) 94 Nasal Cannula 2.00 07/05/23 16:00 Nasal Cannula 2.00 07/05/23 16:00 32.9 71 17 89/56 (68) Nasal Cannula 2.00 07/05/23 15:00 31.8 67 21 87/55 (68) Nasal Cannula 2.00 07/05/23 14:00 30.6 53 12 77/53 (63) 92 Nasal Cannula 2.00 07/05/23 13:45 Nasal Cannula 2.00 07/05/23 13:40 29.8 52 18 92/57 (69) 97 Nasal Cannula 2.00 07/05/23 12:42 28.6 47 27 122/76 98 Room Air 07/05/23 10:45 27.4 49 24 142/110 (121) 96 Height & Weight Height: 6'3.00" Weight: 237lbs. 4.0oz. 107.065799ew; 35.01 BMI Method:Stated General Appearance: No Apparent Distress HEENT: PERRL/EOMI, Scleral Icterus (L), Scleral Icterus (R), Other (Noting rightward and upward gaze, right-sided nystagmus noted) Neck: Normal Inspection, Non Tender Respiratory: Chest Non Tender, Lungs Clear, Normal Breath Sounds, No Accessory Muscle Use, No Respiratory Distress Cardiovascular: No Murmur, Bradycardia Capillary Refill: Less Than 3 Seconds Gastrointestinal: normal bowel sounds, soft Extremity: Pedal Edema Neurologic/Psychiatric: Alert Skin: Normal Color, Cool Results Lab Laboratory Tests 07/05/23 10:53 Assessment/Plan Assessment/Plan BP still low after 1000 IV bolus, has peripheral line, will start IV levo up to 5 and if have to go higher will need either PICC or central [place] Critical Care: Critically Ill Patient JONY BOYCE MD Jul 05, 2023 18:22
[2023-07-05] MEDS ORDERED: NOREPINEPHRINE 8 MG/250 ML 250 ML IV ONE (18:29)
[2023-07-05] MEDS: NOREPINEPHRINE 8 MG/250 ML 250 ML IV SCH (18:30)
[2023-07-05] MEDS ORDERED: AMIODARONE (Pyxis Kit Only) DRIP 450 MG/9 ML VIAL IV ONE (18:55)
[2023-07-05] MEDS ORDERED: AMIODARONE (Pyxis Kit Only) BOLUS 150 MG/3 ML IV ONE (18:55)
[2023-07-05] MEDS ORDERED: NS (IVPB) 100 ML 100 ML ONE (18:57)
[2023-07-05] MEDS ORDERED: NORMAL SALINE (EXCEL) 250 ML 250 ML ONE (18:57)
[2023-07-05] MEDS ORDERED: AMIODARONE FOR BOLUS 150 MG in NS (IVPB) 100 ML 100 ML IV ONE (19:00)
[2023-07-05] MEDS: AMIODARONE FOR DRIP 450 MG in NORMAL SALINE (EXCEL) 250 ML 250 ML IV SCH (19:18)
[2023-07-05] MEDS: PIPERACILLIN/Tazobactam 4.5 GM in NS (IVPB) 100 ML 100 ML IV SCH (21:16)
[2023-07-06] MEDS ORDERED: AMIODARONE (Pyxis Kit Only) DRIP 450 MG/9 ML VIAL IV ONE (01:15)
[2023-07-06] MEDS: NOREPINEPHRINE 8 MG/250 ML 250 ML IV SCH ×3 (01:20→20:03)
[2023-07-06] MEDS: AMIODARONE FOR DRIP 450 MG in NORMAL SALINE (EXCEL) 250 ML 250 ML IV SCH (01:41)
[2023-07-06] MEDS: LACTATED RINGERS 1,000 ML 1,000 ML IV SCH ×4 (04:18→23:26)
[2023-07-06 05:17] LABS: HEMATOCRIT 27 % (40-54); HEMOGLOBIN 9.3 g/dL (13.3-17.7); MEAN CORPUSCULAR HEMOGLOBIN 28 pg (25-34); MEAN CORPUSCULAR HGB CONC 34 g/dL (32-36); MEAN CORPUSCULAR VOLUME 81 fL (80-99); PLATELET COUNT 64 10^3/uL (130-400)
[2023-07-06 05:33] LABS: ALBUMIN 2.8 GM/DL (3.2-4.5)
[2023-07-06 05:34] LABS: POTASSIUM 3.2 MMOL/L (3.6-5.0)
[2023-07-06 05:35] LABS: CALCIUM 8.6 MG/DL (8.5-10.1)
[2023-07-06 05:36] LABS: TOTAL PROTEIN 6.8 GM/DL (6.4-8.2)
[2023-07-06 05:38] LABS: BILIRUBIN,TOTAL 3.3 MG/DL (0.1-1.0)
[2023-07-06 05:39] LABS: CREATININE SERUM 1.3 MG/DL (0.60-1.30)
[2023-07-06] MEDS ORDERED: NS IV 500 ML 500 ML IV PRN (05:45)
[2023-07-06] MEDS: POTASSIUM CL 10MEQ/50ML IVPB 50 ML IV SCH (05:56)
[2023-07-06] MEDS: MAGNESIUM 1 GM/100 ML IVPB 100 ML IV SCH (05:56)
[2023-07-06] MEDS: POTASSIUM CHLORIDE 20 MEQ TABLET PO SCH (05:56)
[2023-07-06] MEDS: inSUlin ASPART 1 UNIT/0.01 ML (PER UNIT) SC SCH ×4 (05:56→23:14)
[2023-07-06] MEDS: PIPERACILLIN/Tazobactam 4.5 GM in NS (IVPB) 100 ML 100 ML IV SCH ×3 (07:43→23:26)
[2023-07-06] MEDS ORDERED: POTASSIUM CHLORIDE 20 MEQ TABLET PO ONE ×2 (08:00→10:00)
--- NOTE | 2023-07-06 08:38 | Tele-ICU Progress Note ---
Subjective Date Seen by a Provider: Jul 06, 2023 Time Seen by a Provider: 10:07 Subjective/Events-last exam (Tele-ICU Physician , Progress Note ) Service provided via interactive audio and video telecommunications [facility] to a patient admitted to ICU bed in [facility]. Patient is seen today due to persistent need of ICU care Available chart/ vitals / labs / Images reviewed Video assessment done using teleICU camera, rest of exam as per RN He is a 68-year-old male with a past medical history of intellectual disability and hepatitis C and hypertension apparently found outside lying next to the front porch. Apparently EMS found his temperature around 82 F and he was brought to the emergency room where he is found to have a atrial fibrillation with a slow ventricular rate and hypotension. Mental status dawson he is confused but apparently was able to understand about 50% of the time. No signs of trauma was found apparently. Currently in the intensive care unit on low-dose Levophed and amiodarone. Amiodarone was started last night because his heart rate went up to around 160s. Currently heart rate is down to 51-57/min still in atrial fibrillation. Apparently he is a smoker. Impression 1. Hypothermia secondary to exporter outside however sepsis cannot be ruled out 2. Hypotension due to dehydration and possibly due to sepsis 3. Atrial fibrillation with slow ventricular rate. Recommendations 1. Continue warming efforts with their Harger with each his temperature improved currently around 96.2. 3. Hydrate patient and emperic antibiotic treatment 3. Try to wean Levophed as tolerated 4. Rule out any hypothyroidism 5. DVT prophylaxis and ulcer prophylaxis 6. Cardiology consultation. Coordination of care with primary care physician and bedside consultants. I am remotely monitoring this patient from Tele icu station in [place]. I am unable to do the bedside exam, and history/physical and pertinent information is taken from other notes in the computer and bedside staff. Discurred with bed side rn and MDR Certain portions of this document may have been dictated utilizing voice recognition technology such as Exec. Inherent to this technology, typographical and grammatical errors may exist. As much as I am diligent to identify and correct to these mistakes, some errors may remain in the document. Critical care time devoted to this patient today is approximately is-30 minutes Sepsis Event Evaluation Height, Weight, BMI Height: 6'3.00" Weight: 237lbs. 4.0oz. 107.022283nq; 35.01 BMI Method:Stated Focused Exam Lactate Level 07/05/23 11:40: Lactic Acid Level 3.36*H 07/05/23 13:55: Lactic Acid Level 2.81*H 07/06/23 04:27: Lactic Acid Level 1.41 Exam Exam Patient acknowledged, consented, and participated in this virtual visit which was conducted using real time audio/video Vital Signs Date Time Temp Pulse Resp B/P (MAP) Pulse Ox O2 Delivery O2 Flow Rate FiO2 07/06/23 08:27 57 92/57 07/06/23 08:00 35.8 56 10 108/61 (77) 94 Nasal Cannula 4.00 07/06/23 07:17 52 07/06/23 07:00 58 14 108/58 (75) 91 Nasal Cannula 4.00 07/06/23 06:15 35.6 58 11 108/60 (76) 90 Nasal Cannula 4.00 07/06/23 05:00 35.8 58 17 100/53 (69) 97 Nasal Cannula 4.00 07/06/23 04:07 Nasal Cannula 2.00 07/06/23 04:00 35.9 65 10 97/61 (73) 99 Nasal Cannula 4.00 07/06/23 03:00 36.1 68 13 95/55 (68) 97 Nasal Cannula 4.00 07/06/23 02:00 36.2 70 21 119/69 (86) 95 Nasal Cannula 4.00 07/06/23 01:20 64 94/61 07/06/23 01:00 36.4 79 14 112/65 (81) 95 Nasal Cannula 4.00 07/06/23 01:00 84 07/06/23 00:00 36.4 15 98/58 (68) 95 Nasal Cannula 4.00 07/05/23 23:58 95 Nasal Cannula 2.00 07/05/23 23:55 Nasal Cannula 2.00 07/05/23 23:00 36.9 79 13 98/51 (64) 96 Nasal Cannula 4.00 07/05/23 22:00 36.7 96 11 100/57 (67) 91 Nasal Cannula 4.00 07/05/23 21:04 36.1 07/05/23 21:00 36.1 88 16 85/62 (67) 93 Nasal Cannula 4.00 07/05/23 20:16 Nasal Cannula 2.00 07/05/23 20:00 35.5 79 17 113/76 (91) Nasal Cannula 4.00 07/05/23 19:45 35.3 78 17 78/63 (70) Nasal Cannula 4.00 07/05/23 19:30 35.1 74 16 105/64 (81) Nasal Cannula 4.00 07/05/23 19:15 34.9 76 15 81/55 (66) Nasal Cannula 4.00 07/05/23 19:04 144 106/64 07/05/23 19:00 34.8 73 17 106/63 (79) Nasal Cannula 4.00 07/05/23 19:00 90 07/05/23 18:30 51 78/64 07/05/23 18:00 34.0 51 14 78/64 (70) 94 Nasal Cannula 2.00 07/05/23 17:00 33.2 68 16 84/61 (69) 94 Nasal Cannula 2.00 07/05/23 16:00 Nasal Cannula 2.00 07/05/23 16:00 32.9 71 17 89/56 (68) Nasal Cannula 2.00 07/05/23 15:00 31.8 67 21 87/55 (68) Nasal Cannula 2.00 07/05/23 14:00 30.6 53 12 77/53 (63) 92 Nasal Cannula 2.00 07/05/23 13:45 Nasal Cannula 2.00 07/05/23 13:40 29.8 52 18 92/57 (69) 97 Nasal Cannula 2.00 07/05/23 12:42 28.6 47 27 122/76 98 Room Air 07/05/23 10:45 27.4 49 24 142/110 (121) 96 I & O 07/06/23 07:00 Intake Total 1375 ml Output Total 395 ml Balance 980 ml Height & Weight Height: 6'3.00" Weight: 237lbs. 4.0oz. 107.906343yc; 35.01 BMI Method:Stated General Appearance: No Apparent Distress, Chronically ill HEENT: PERRL/EOMI, Scleral Icterus (L), Scleral Icterus (R), Other (Noting rightward and upward gaze, right-sided nystagmus noted) Neck: Normal Inspection, Non Tender Respiratory: No Accessory Muscle Use, No Respiratory Distress, Decreased Breath Sounds Cardiovascular: Bradycardia Capillary Refill: Less Than 3 Seconds Gastrointestinal: normal bowel sounds, soft Extremity: Pedal Edema Neurologic/Psychiatric: Alert, Disoriented Skin: Normal Color, Cool Results Lab Laboratory Tests 07/05/23 10:53 07/06/23 04:27 Assessment/Plan Assessment/Plan as above Critical Care: Critically Ill Patient Time spent with patient (mins): 30 DARINEL HOUSE MD Jul 06, 2023 08:38
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
[2023-07-06] MEDS: NICOTINE 14 MG PATCH TD SCH (10:06)
[2023-07-06] MEDS ORDERED: IOHEXOL 350 MG/ML 100 ML (OMNIPAQUE 350) VIAL IV ONE (10:15)
[2023-07-06] MEDS ORDERED: HOLD METFORMIN - RECEIVED CONTRAST 20 ML VIAL IV SCH (10:15)
[2023-07-06] MEDS ORDERED: NS 100 ML (IVPB) BAG IV ONE (10:15)
[2023-07-06] MEDS ORDERED: HYDROCORTISONE INJECTION 100 MG/2 ML VIAL IV NR (10:30)
[2023-07-06 10:49] LABS: FREE T4 (FREE THYROXINE) 1.14 NG/DL (0.70-1.48)
[2023-07-06] MEDS ORDERED: CARV3.122 PO (12:02)
[2023-07-06] MEDS ORDERED: ASPI-1238 PO (12:02)
[2023-07-06] MEDS ORDERED: POTA-185 PO (12:02)
[2023-07-06] MEDS ORDERED: PALI819S IJ (12:02)
[2023-07-06] MEDS ORDERED: SACU1TAB2 PO (12:02)
[2023-07-06] MEDS ORDERED: FURO40TA4 PO (12:02)
[2023-07-06] MEDS: ENOXAPARIN 40 MG/0.4 ML SYRINGE SC SCH (14:09)
--- NOTE | 2023-07-06 14:28 | Diagnostic Imaging Report ---
INDICATION: PICC line placement TECHNIQUE: Single view chest 1:53 PM CORRELATION STUDY: 07/05/2023 FINDINGS: Heart size enlarged but stable. Vascular significantly improved and near normal at followup. Previous imaging demonstrated a scattered bilateral pulmonary infiltrates left greater than right. These have significantly improved and some areas largely resolved favors previous edema. Stomach distended with gas. A right-sided central line has been placed. The line is significantly folded on itself over the right lung apex. IMPRESSION: 1. Right upper extremity central line has been placed with large portion of the distal line folded on itself over the right lung apex. Will need to be retracted for unfolding. 2. Significant improvement aeration to the lung painting. Likely largely decreased severity of a edema from prior. Called to [facility] at 2:25 p.m. by cvb. Dictated by: Dictated on workstation # [id number]
--- NOTE | 2023-07-06 14:34 | Diagnostic Imaging Report ---
EXAMINATION: CT chest with intravenous contrast. TECHNIQUE: Multiple contiguous axial images were obtained through the chest after the uneventful administration of intravenous contrast. All CT scans use one or more of the following dose optimizing techniques: automated exposure control, MA and/or KvP adjustment based on patient size and exam type or iterative reconstruction. HISTORY: Hepatitis C. Further evaluation for opacities in the lung apices. COMPARISON: 06/25/2017. CT cervical spine on 07/05/2023. FINDINGS: The heart size is prominent. No pericardial effusion is present. There is calcified aortic and coronary atherosclerotic plaque without aneurysm. There is no mediastinal, hilar, or axillary lymphadenopathy. Small bilateral pleural effusions are visualized with dependent opacities bilaterally. Emphysema is seen throughout the lungs. There is mild bronchial wall thickening. No discrete mass. No pneumothorax. The osseous structures demonstrate no acute abnormalities. A moderate volume of ascites is seen in the upper abdomen. The liver demonstrates a micronodular contour. IMPRESSION: 1. Small bilateral pleural effusions with dependent opacities bilaterally. Findings may represent atelectasis, edema, and/or infection. 2. Cardiomegaly. 3. Cirrhotic morphology of the liver with moderate volume of ascites in the upper abdomen. 4. Emphysema. Dictated by: Dictated on workstation # [id number]
--- NOTE | 2023-07-06 15:13 | Diagnostic Imaging Report ---
INDICATION: Left PICC line placement. TECHNIQUE: Single-view chest at 02:48 p.m. CORRELATION STUDY: 07/06/2023. FINDINGS: The patient's malpositioned right-sided central line has been removed. A left-sided central line has been placed with tip at the high right atrium. Heart size is enlarged. Vasculature is prominent. Some residual scattered patchy infiltrate-like opacities, left greater than right, do remain. Stomach is distended with gas. IMPRESSION: 1. Left upper extremity central line has been placed with tip at the high right atrium. Dictated by: Dictated on workstation # [id number]
[2023-07-06] MEDS: NS IV 1000 ML 1,000 ML IV SCH ×2 (16:18→19:22)
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
[2023-07-06] MEDS ORDERED: ALBUMIN 25% 25 GM/100 ML 200 ML IV ONE (18:00)
[2023-07-06] MEDS: HYDROCORTISONE INJECTION 100 MG/2 ML VIAL IV SCH (18:09)
[2023-07-06 20:11] LABS: ABG BASE EXCESS 2.8 MMOL/L (-2.5-2.5); ABG OXYGEN SATURATION 100 % (94-100); ABG PCO2 54 MMHG (35-45); ABG PO2 116 MMHG (79-93); ABG TCO2 30.1 MMOL/L (21.0-31.0)
[2023-07-06 20:15] LABS: ABG PH 7.33 (7.37-7.43); ALLENS TEST YES-POS; INSPIRED O2 5 L; PATIENT TEMP 36.1; VENTILATOR NO
[2023-07-06 20:39] LABS: BASOPHILS % (AUTO) 0 % (0-10); EOSINOPHILS % (AUTO) 0 % (0-10); HEMATOCRIT 26 % (40-54); HEMOGLOBIN 8.7 g/dL (13.3-17.7); LYMPHOCYTES # (AUTO) 0.5 10^3/uL (1.0-4.0); LYMPHOCYTES % (AUTO) 7 % (12-44); MEAN CORPUSCULAR HGB CONC 33 g/dL (32-36); MEAN CORPUSCULAR VOLUME 83 fL (80-99); MONOCYTES # (AUTO) 0.3 10^3/uL (0.0-1.0); MONOCYTES % (AUTO) 4 % (0-12); NEUTROPHILS % (AUTO) 89 % (42-75); WHITE BLOOD COUNT 6.9 10^3/uL (4.3-11.0)
[2023-07-06 20:40] LABS: MEAN CORPUSCULAR HEMOGLOBIN 27 pg (25-34); PLATELET COUNT 51 10^3/uL (130-400)
[2023-07-06 20:41] LABS: NEUTROPHILS # (AUTO) 6.1 10^3/uL (1.8-7.8)
[2023-07-06 20:56] LABS: ALBUMIN 3.1 GM/DL (3.2-4.5); BILIRUBIN,TOTAL 2.4 MG/DL (0.1-1.0); CALCIUM 8.1 MG/DL (8.5-10.1); CREATININE SERUM 1.5 MG/DL (0.60-1.30); POTASSIUM 3.5 MMOL/L (3.6-5.0); TOTAL PROTEIN 6.5 GM/DL (6.4-8.2)
--- NOTE | 2023-07-06 21:10 | Diagnostic Imaging Report ---
CLINICAL INDICATION: Patient with ET tube and nasogastric tube placement. EXAM: Portable chest x-ray supine view. COMPARISON: Portable chest x-ray dated 07/06/2023 at 1448. FINDINGS AND IMPRESSION: 1: There is interval placement of ET tube with tip seen roughly 4.2 cm from the level of the socrates. 2: Interval placement of nasogastric feeding tube with proximal port overlying the expected region of the mid gastric body in good position. 3: There is interval slight change in configuration of the tip of the left sided PICC line which is slightly more tortuous, but the tip still lies over the expected region of the distal superior vena cava. 4: Stable cardiomegaly with mild pulmonary vascular congestion. 5: Stable scattered bilateral lung infiltrates. Dictated by: Dictated on workstation # [id number]
--- NOTE | 2023-07-06 21:34 | Diagnostic Imaging Report ---
CLINICAL INDICATION: Patient with change in mental status. Patient in ICU. Exam: Axial CT scan of the brain without IV contrast with coronal and sagittal reformatted images. Auto Exposure Controls were utilized during the CT exam to meet ALARA standards for radiation dose reduction. Comparison: CT scan of the head and cervical spine without contrast dated 07/05/2023. Findings: There is no evidence of acute cerebral infarct, intracranial hemorrhage, or gross mass effect. The brain parenchymal volume appears appropriate for patient's age. There is normal caceres-white matter distinction. There is no significant midline shift or herniation. There is no evidence of hydrocephalus. The basal cisterns are unremarkable. The skull, extracranial soft tissue, and orbits are unremarkable. There is secretions and mucosal thickening and obstruction of the nasal cavity. There is mild mucosal thickening involving the ethmoid sinus. Again seen consolidation of the left mastoid air cells, left middle ear and left external auditory canal. There is bony sclerosis seen. Temporal bones show no significant abnormality. Impression: 1: There is no interval CT evidence of acute intracranial process. 2: Again seen consolidation involving the left middle ear, left mastoid air cells and left external auditory canal. These findings may be related to otomastoiditis. Otitis externa may also be considered. There is amorphous calcifications in the region of the left external auditory canal which may be related to debris or may represent erosive changes of the bony structures and a mass should be excluded or erosive process. Nonemergent ENT consultation is suggested. Dictated by: Dictated on workstation # [id number]
[2023-07-06 22:43] LABS: ABG BASE EXCESS 4.3 MMOL/L (-2.5-2.5); ABG OXYGEN SATURATION 99 % (94-100); ABG PCO2 40 MMHG (35-45); ABG PH 7.46 (7.37-7.43); ABG PO2 98 MMHG (79-93); ABG TCO2 29.7 MMOL/L (21.0-31.0); ALLENS TEST YES-POS
[2023-07-06 22:44] LABS: INSPIRED O2 60%; PATIENT TEMP 35.3; VENTILATOR YES
[2023-07-07] MEDS: HYDROCORTISONE INJECTION 100 MG/2 ML VIAL IV SCH ×3 (02:34→18:20)
[2023-07-07 02:50] LABS: HEMOGLOBIN 8.3 g/dL (13.3-17.7)
[2023-07-07 02:51] LABS: HEMATOCRIT 24 % (40-54); MEAN CORPUSCULAR HEMOGLOBIN 28 pg (25-34); MEAN CORPUSCULAR HGB CONC 34 g/dL (32-36); MEAN CORPUSCULAR VOLUME 80 fL (80-99); PLATELET COUNT 51 10^3/uL (130-400); WHITE BLOOD COUNT 6.3 10^3/uL (4.3-11.0)
[2023-07-07 03:01] LABS: POTASSIUM 3.4 MMOL/L (3.6-5.0)
[2023-07-07 03:02] LABS: CALCIUM 8.4 MG/DL (8.5-10.1)
[2023-07-07 03:03] LABS: TOTAL PROTEIN 6.5 GM/DL (6.4-8.2)
[2023-07-07 03:05] LABS: BILIRUBIN,TOTAL 2.8 MG/DL (0.1-1.0)
[2023-07-07 03:06] LABS: PHOSPHORUS 2.2 MG/DL (2.3-4.7)
[2023-07-07 03:07] LABS: CREATININE SERUM 1.58 MG/DL (0.60-1.30)
[2023-07-07] MEDS: POTASSIUM CL 10MEQ/50ML IVPB 50 ML IV SCH ×5 (03:40→08:15)
[2023-07-07] MEDS: POTASSIUM CHLORIDE 20 MEQ TABLET PO SCH (03:41)
[2023-07-07] MEDS: MAGNESIUM 1 GM/100 ML IVPB 100 ML IV SCH (03:41)
[2023-07-07] MEDS: inSUlin ASPART 1 UNIT/0.01 ML (PER UNIT) SC SCH ×4 (04:17→20:07)
[2023-07-07] MEDS: NS IV 1000 ML 1,000 ML IV SCH ×3 (05:17→16:04)
[2023-07-07] MEDS: PIPERACILLIN/Tazobactam 4.5 GM in NS (IVPB) 100 ML 100 ML IV SCH ×3 (05:33→22:21)
[2023-07-07 06:58] VITALS: BP 96/51
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
[2023-07-07] MEDS: LACTATED RINGERS 1,000 ML 1,000 ML IV SCH ×3 (08:20→23:55)
--- NOTE | 2023-07-07 08:23 | Cardiology Progress Note ---
Subjective Date Seen by Provider: Jul 07, 2023 Time Seen by Provider: 08:19 Subjective/Events-last exam Patient was seen at bedside sedated and intubated It was reported to be this morning that he deteriorated in the evening yesterday and became unresponsive. ER physician were called and patient was intubated. Review of Systems General: Other (Unable to provide review of system) Focused Exam Lactate Level 07/05/23 13:55: Lactic Acid Level 2.81*H 07/06/23 04:27: Lactic Acid Level 1.41 07/06/23 20:26: Lactic Acid Level 1.69 Objective-Cardiology Exam Last Set of Vital Signs Vital Signs 07/07/23 07/07/23 07/07/23 06:56 06:58 08:14 Temp 37.2 Pulse 58 Resp 16 B/P (MAP) 120/65 Pulse Ox 93 O2 Delivery Mechanical Ventilator O2 Flow Rate 60.00 FiO2 60 I&O Intake and Output 07/07/23 00:00 Intake Total 1585 ml Output Total 500 ml Balance 1085 ml Intake Oral 485 ml IV Total 1100 ml Output Urine Total 500 ml General: Other (Sedated and intubated) HEENT: Atraumatic, PERRLA Neck: Supple, No JVD Lungs: Clear to Auscultation, Normal Air Movement Heart: Regular Rate, Normal S1, Normal S2 Abdomen: Normal Bowel Sounds, Soft Extremities: No Clubbing, No Cyanosis Skin: No Rashes Neuro: Other (Sedated and intubated) Psych/Mental Status: Other (Sedated and intubated) Results Lab Laboratory Tests 07/06/23 20:26 07/07/23 02:40 A/P-Cardiology Admission Diagnosis Hypothermia Hypotension Congestive heart failure dilated cardiomyopathy, improved Pulmonary hypertension Assessment/Plan Acute respiratory failure, elective intubation Managed by medical team Acute change in mental status, significant deterioration, became unresponsive with pinpoint pupils Unknown etiology, could be metabolic encephalopathy/hepatic encephalopathy CT scan of the head results reviewed, consider ENT consult Patient has elevated ammonia and bilirubin. Hypothermia, hypotension Temperature has improved, maintained on inotropes. Monitor, managed by primary care team Questionable atrial fibrillation, the preliminary report on his EKG suggestive of atrial fibrillation, further evaluation of the EKG showed artifact with underlying sinus bradycardia. No atrial fibrillation was identified during this hospital stay Amiodarone was discontinued. Heart rate is stable Sinus bradycardia, maintained on Levophed. Carvedilol and Entresto has been on hold. Hypotension, carvedilol and Entresto and furosemide are on hold. Maintained on Levophed. Dilated cardiomyopathy, improved Had an echo in March 2023 with ejection fraction 40 to 45% with prominent right heart chambers and severe pulmonary hypertension with PA pressure 60 to 65 mmHg with moderate to severe tricuspid regurgitation Repeat 2D echo done on July 06, 2023 with ejection fraction 50 to 55%, dilated right heart chambers with severe pulmonary hypertension PA pressure 60 to 65%, moderate to severe tricuspid regurgitation Cannot tolerate beta-blockers, MILANA inhibitor and/or ARB at this time due to hypotension History of hepatitis C, possible hepatic cirrhosis, elevated bilirubin and ammonia Followed and managed by primary care team History of CVA occurred in 2017, 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 Cor pulmonale with severe pulmonary hypertension with emphysema noted on CT scan small pleural effusion History of schizophrenia History of illicit drug use including marijuana, cocaine, methamphetamine. Mild bilateral carotid stenosis, last ultrasound was done in February 2021 Electrolytes imbalance with hyponatremia, hypokalemia, managed by primary care team Questionable history of diabetes mellitus, patient is not receiving any treatment for diabetes, blood sugar is controlled. Managed by primary care team LILIAM KAMARA MD Jul 07, 2023 08:23
[2023-07-07] MEDS: NICOTINE 14 MG PATCH TD SCH (08:29)
[2023-07-07] MEDS: ASPIRIN enteric coated 81MG TABLET PO SCH (08:29)
[2023-07-07 08:49] LABS: AMPHETAMINE SCREEN, URINE NEGATIVE (NEGATIVE); BARBITURATE SCREEN URINE NEGATIVE (NEGATIVE); CANNABINOID SCREEN, URINE NEGATIVE (NEGATIVE); COCAINE SCREEN URINE NEGATIVE (NEGATIVE); METHADONE STAT NEGATIVE (NEGATIVE); OPIATE SCREEN URINE NEGATIVE (NEGATIVE); OXYCODONE STAT NEGATIVE (NEGATIVE); PROPOXYPHENE STAT NEGATIVE (NEGATIVE); TRICYCLIC ANTIDEPRESSANTS SCRE NEGATIVE (NEGATIVE)
--- NOTE | 2023-07-07 09:12 | Tele-ICU Progress Note ---
Subjective Date Seen by a Provider: Jul 07, 2023 Time Seen by a Provider: 09:06 Subjective/Events-last exam Had to be intubated last night due to AMS and rising pCO2-7.33/54/116, now 7.46/40/98, now on vent AC 16 Vt 500 FiO2 60% Originally admitted for severe hypothermia from exposure BP has been low, today 120/65, on IV Levo @ 0.4, Also on IV Zosyn, IV hydrocortisone On IV Propofol @ 35, no cough, gag, needing much suctioning, getting yellow green, Lab Cr up to 1.58, BUN 20, TSH normal, plt down to 51 Needs GIB prophylaxsis, will order IV Pepcid Sepsis Event Evaluation Height, Weight, BMI Height: 6'3.00" Weight: 237lbs. 4.0oz. 107.783533zo; 35.01 BMI Method:Stated Focused Exam Lactate Level 07/05/23 13:55: Lactic Acid Level 2.81*H 07/06/23 04:27: Lactic Acid Level 1.41 07/06/23 20:26: Lactic Acid Level 1.69 Exam Exam Patient acknowledged, consented, and participated in this virtual visit which was conducted using real time audio/video Vital Signs Date Time Temp Pulse Resp B/P (MAP) Pulse Ox O2 Delivery O2 Flow Rate FiO2 07/07/23 08:14 58 120/65 07/07/23 07:18 47 07/07/23 06:58 46 16 93 60 07/07/23 06:56 37.2 48 16 95/49 (64) 93 Mechanical Ventilator 60.00 07/07/23 06:26 60 07/07/23 06:00 37.1 51 16 113/59 (77) 93 Mechanical Ventilator 60.00 07/07/23 05:00 37.1 51 16 117/62 (80) 95 Mechanical Ventilator 60.00 07/07/23 04:10 50 107/55 07/07/23 04:00 37.1 52 16 107/55 (72) 94 Mechanical Ventilator 60.00 07/07/23 03:47 Mechanical Ventilator 60 07/07/23 03:09 60 07/07/23 03:00 37.1 51 16 101/57 (72) 92 Mechanical Ventilator 60.00 07/07/23 02:17 49 16 93 60 07/07/23 02:00 36.6 49 16 101/52 (68) 93 Mechanical Ventilator 60.00 07/07/23 01:00 36.0 45 16 107/57 (74) 94 Mechanical Ventilator 60.00 07/07/23 01:00 55 07/07/23 00:23 47 116/62 07/07/23 00:15 48 16 116/62 (82) 95 Mechanical Ventilator 60.00 07/07/23 00:07 Mechanical Ventilator 60 07/07/23 00:00 35.4 47 16 118/66 (81) 95 Mechanical Ventilator 60.00 07/06/23 23:45 44 16 118/66 (83) 94 Mechanical Ventilator 60.00 07/06/23 23:30 45 16 119/70 (83) 93 Mechanical Ventilator 60.00 07/06/23 23:15 46 16 122/60 (84) 94 Mechanical Ventilator 60.00 07/06/23 23:00 35.2 47 16 130/74 (89) 95 Mechanical Ventilator 60.00 07/06/23 22:51 60 07/06/23 22:45 46 16 122/65 (86) 92 Mechanical Ventilator 60.00 07/06/23 22:30 48 16 128/69 (90) 94 Mechanical Ventilator 60.00 07/06/23 22:15 47 16 124/68 (87) 93 Mechanical Ventilator 60.00 07/06/23 22:00 35.3 50 16 116/66 (77) 93 Mechanical Ventilator 60.00 07/06/23 21:45 57 16 140/80 (100) 94 Mechanical Ventilator 60.00 07/06/23 21:30 87 16 132/75 (94) 97 Mechanical Ventilator 60.00 07/06/23 20:52 77 16 97 60 07/06/23 20:38 70 110/76 07/06/23 20:03 49 111/90 07/06/23 20:00 50 9 135/71 (98) 95 Nasal Cannula 4.00 07/06/23 19:50 Nasal Cannula 5.00 07/06/23 19:45 63 11 111/99 (103) 92 Nasal Cannula 4.00 07/06/23 19:44 36.4 07/06/23 19:30 54 10 114/62 (93) 90 Nasal Cannula 4.00 07/06/23 19:15 54 10 107/72 (88) 92 Nasal Cannula 4.00 07/06/23 19:00 56 07/06/23 19:00 56 12 113/69 (97) 92 Nasal Cannula 4.00 07/06/23 18:00 52 11 107/67 (80) 92 Nasal Cannula 4.00 07/06/23 17:00 61 16 120/74 (89) 90 Nasal Cannula 4.00 07/06/23 16:24 35.9 07/06/23 16:16 Nasal Cannula 4.00 07/06/23 16:00 67 16 123/72 (89) 93 Nasal Cannula 4.00 07/06/23 14:37 Nasal Cannula 4.00 07/06/23 12:35 Nasal Cannula 4.00 07/06/23 12:25 65 07/06/23 12:02 35.9 07/06/23 11:00 36.5 70 10 108/60 (76) 93 Nasal Cannula 4.00 07/06/23 10:00 36.5 63 10 110/63 (79) 93 Nasal Cannula 4.00 I & O 07/07/23 07:00 Intake Total 1540 ml Output Total 580 ml Balance 960 ml Height & Weight Height: 6'3.00" Weight: 237lbs. 4.0oz. 107.917131jc; 35.01 BMI Method:Stated General Appearance: No Apparent Distress, WD/WN, Obese HEENT: PERRL/EOMI (small pupils 2mm; patient intermittently has rightward and upward gaze), Moist Mucous Membranes Neck: Normal Inspection Respiratory: Lungs Clear, Normal Breath Sounds, No Accessory Muscle Use, No Respiratory Distress, Decreased Breath Sounds, Rhonci Cardiovascular: Normal Peripheral Pulses, Bradycardia, Irregularly Irregular, Other (slow a fib) Capillary Refill: Less Than 3 Seconds Gastrointestinal: normal bowel sounds, non tender, soft Extremity: Normal Inspection, Normal Range of Motion, Pedal Edema (trace leg edema) Neurologic/Psychiatric: Alert, Other (sedated, not very responsvie, will lower IV Propofol infusion) Skin: Normal Color, Cool (very cold skin) Lymphatic: No Adenopathy Results Lab Laboratory Tests 07/05/23 10:53 07/06/23 04:27 07/06/23 20:26 07/07/23 02:40 Assessment/Plan Assessment/Plan Hypothermia-body temp up to 37.1 Hypothension, on IV levo 0.4, BP 130/78, will try to go down on dosing CKD, will keep hydrated acute resp failure, leave on vent for now Lower IV propofol infusion due to obtundation, suction PRN, will culture sputum IV Pepcid 10 bid for GIB prophylaxsis Critical Care: Critically Ill Patient Time spent with patient (mins): 35 JONY BOYCE MD Jul 07, 2023 09:12
[2023-07-07] MEDS: PATCH REMOVAL TP SCH (09:15)
[2023-07-07] MEDS: LACTULOSE SYRUP 10GM/15ML 30ML UDC PO SCH ×2 (10:27→20:27)
[2023-07-07 10:33] VITALS: BP 127/76
[2023-07-07 14:06] VITALS: BP 122/75
[2023-07-07] MEDS: ENOXAPARIN 40 MG/0.4 ML SYRINGE SC SCH (14:39)
--- NOTE | 2023-07-07 15:25 | Progress Note ---
Standard Progress Note Progress Notes/Assess & Plan Date Seen by a Provider: Jul 07, 2023 Time Seen by a Provider: 13:55 Progress/Assessment & Plan Called by Dr. Ruff for a lumbar puncture requested by EICU. The patient's chart was reviewed and found to have a platelet count of 51,000. The patient's CT of head was negative and blood thinners have not been given for 24 hours to this point (Lovenox given 07/06/23) thus there are no other contraindications other than thrombocytopenia due to risk of spinal hematoma. The patient is intubated and on the ventilator thus he is unable to communicate with us of any signs or symptoms of spinal hematoma. We will defer procedure at this time. Focused Exam Lactate Level 07/05/23 13:55: Lactic Acid Level 2.81*H 07/06/23 04:27: Lactic Acid Level 1.41 07/06/23 20:26: Lactic Acid Level 1.69 ERNST JACKSON CRNA Jul 07, 2023 15:25
[2023-07-07] MEDS: NOREPINEPHRINE 8 MG/250 ML 250 ML IV SCH (16:30)
--- NOTE | 2023-07-07 17:47 | Progress Note ---
Standard Progress Note Progress Notes/Assess & Plan Date Seen by a Provider: Jul 07, 2023 Time Seen by a Provider: 17:00 Progress/Assessment & Plan [id number] Rose seen and evaluated rose has multiple medical issues He has had crhonic ear problems since at least 2016 and probably much longer findings aare no different than from ct of temporal bones from 2017 Exam-drainge in left ear canal-no swelling of mastoid or canal wall posteriorly neck-no nuchal rigidity wbc-6.3 all of those fidnings would point to another cuase of his altered mental status started him on drops garamycin tid to the left ear once he gets healthy enough he needs to ahve surgery done on the left ear AT - they have seen him in the past but for variuos reasons surgery was not done Focused Exam Lactate Level 07/05/23 13:55: Lactic Acid Level 2.81*H 07/06/23 04:27: Lactic Acid Level 1.41 07/06/23 20:26: Lactic Acid Level 1.69 HAMZAH PANTOJA MD Jul 07, 2023 17:47
[2023-07-07 20:02] VITALS: BP 118/67
[2023-07-07] MEDS: GENTAMICIN 0.3% OPHTH SOLN 5 ML LEFT EAR SCH (20:29)
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
[2023-07-08] MEDS: LACTATED RINGERS 1,000 ML 1,000 ML IV SCH ×2 (00:03→07:20)
[2023-07-08 00:10] VITALS: BP 123/74
[2023-07-08] MEDS: NS IV 1000 ML 1,000 ML IV SCH (01:35)
[2023-07-08] MEDS: HYDROCORTISONE INJECTION 100 MG/2 ML VIAL IV SCH ×2 (01:54→10:31)
[2023-07-08 02:36] VITALS: BP 122/71
[2023-07-08 03:39] LABS: MEAN CORPUSCULAR HGB CONC 35 g/dL (32-36)
[2023-07-08 03:40] LABS: HEMATOCRIT 25 % (40-54); HEMOGLOBIN 8.7 g/dL (13.3-17.7); MEAN CORPUSCULAR HEMOGLOBIN 28 pg (25-34); MEAN CORPUSCULAR VOLUME 79 fL (80-99); PLATELET COUNT 59 10^3/uL (130-400); WHITE BLOOD COUNT 7.2 10^3/uL (4.3-11.0)
[2023-07-08] MEDS: NOREPINEPHRINE 8 MG/250 ML 250 ML IV SCH (03:41)
[2023-07-08 03:52] LABS: ALBUMIN 2.7 GM/DL (3.2-4.5); POTASSIUM 3.6 MMOL/L (3.6-5.0)
[2023-07-08 03:53] LABS: CALCIUM 7.8 MG/DL (8.5-10.1)
[2023-07-08 03:55] LABS: TOTAL PROTEIN 6.2 GM/DL (6.4-8.2)
[2023-07-08 03:56] LABS: BILIRUBIN,TOTAL 3.1 MG/DL (0.1-1.0)
[2023-07-08 03:58] LABS: CREATININE SERUM 1.76 MG/DL (0.60-1.30); PHOSPHORUS 2.2 MG/DL (2.3-4.7)
[2023-07-08] MEDS: POTASSIUM CL 10MEQ/50ML IVPB 50 ML IV SCH ×5 (04:05→07:21)
[2023-07-08] MEDS: POTASSIUM CHLORIDE 20 MEQ TABLET PO SCH (04:05)
[2023-07-08] MEDS: inSUlin ASPART 1 UNIT/0.01 ML (PER UNIT) SC SCH ×2 (04:06→11:00)
[2023-07-08] MEDS: MAGNESIUM 1 GM/100 ML IVPB 100 ML IV SCH ×5 (04:28→08:04)
[2023-07-08 04:31] LABS: ABG BASE EXCESS 7.6 MMOL/L (-2.5-2.5); ABG OXYGEN SATURATION 95 % (94-100); ABG PCO2 36 MMHG (35-45); ABG PH 7.54 (7.37-7.43); ABG PO2 68 MMHG (79-93); ABG TCO2 32.1 MMOL/L (21.0-31.0); ALLENS TEST YES-POS; INSPIRED O2 60%; PATIENT TEMP 35.6; VENTILATOR YES
[2023-07-08] MEDS: PIPERACILLIN/Tazobactam 4.5 GM in NS (IVPB) 100 ML 100 ML IV SCH (06:13)
[2023-07-08 06:20] VITALS: BP 117/72
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
[2023-07-08] MEDS: ASPIRIN enteric coated 81MG TABLET PO SCH (08:06)
[2023-07-08] MEDS: GENTAMICIN 0.3% OPHTH SOLN 5 ML LEFT EAR SCH (08:06)
[2023-07-08] MEDS: NICOTINE 14 MG PATCH TD SCH (08:07)
[2023-07-08] MEDS: LACTULOSE SYRUP 10GM/15ML 30ML UDC PO SCH (08:07)
[2023-07-08] MEDS: PATCH REMOVAL TP SCH (08:07)
[2023-07-08] MEDS ORDERED: ETOMIDATE INJ SOLN 20 MG/10 ML VIAL IV ONE (08:34)
[2023-07-08] MEDS ORDERED: ROCURONIUM 50 MG/5 ML VIAL IV ONE (08:34)
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
[2023-07-08 10:42] VITALS: BP 153/85
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
[2023-07-08] MEDS ORDERED: FLUCONAZOLE 200 MG/NACL 100 ML (PRE-MIX) IV NR (11:30)
[2023-07-08 12:21] VITALS: BP 122/63
--- NOTE | 2023-07-08 13:14 | Cardiology Progress Note ---
Subjective Date Seen by Provider: Jul 08, 2023 Time Seen by Provider: 13:09 Subjective/Events-last exam Patient is sedated and intubated Has been having episodes of bradycardia. Blood pressure is stable Focused Exam Lactate Level 07/05/23 13:55: Lactic Acid Level 2.81*H 07/06/23 04:27: Lactic Acid Level 1.41 07/06/23 20:26: Lactic Acid Level 1.69 Objective-Cardiology Exam Last Set of Vital Signs Vital Signs 07/08/23 07/08/23 07/08/23 07/08/23 10:42 11:46 12:00 12:21 Temp 36.5 Pulse 50 Resp 16 B/P (MAP) 122/63 Pulse Ox 97 O2 Delivery Mechanical Ventilator O2 Flow Rate 60.00 FiO2 60 I&O Intake and Output 07/08/23 00:00 Intake Total 1400 ml Output Total 2700 ml Balance -1300 ml Intake Oral 100 ml IV Total 1300 ml Output Urine Total 650 ml Gastric Drainage Total 2050 ml # Bowel Movements 3 General: Other (Sedated and intubated) HEENT: Atraumatic, PERRLA Neck: Supple, No JVD Lungs: Clear to Auscultation, Normal Air Movement Heart: Regular Rate, Normal S1, Normal S2 Abdomen: Normal Bowel Sounds, Soft Extremities: No Clubbing, No Cyanosis Skin: No Rashes Neuro: Other (Sedated and intubated) Psych/Mental Status: Other (Sedated and intubated) Results Lab Laboratory Tests 07/08/23 03:28 A/P-Cardiology Admission Diagnosis Hypothermia Hypotension Congestive heart failure dilated cardiomyopathy, improved Pulmonary hypertension Assessment/Plan Acute respiratory failure, elective intubation Managed by medical team Acute change in mental status, significant deterioration, became unresponsive with pinpoint pupils Unknown etiology, could be metabolic encephalopathy/hepatic encephalopathy CT scan of the head results reviewed, consider ENT consult Patient has elevated ammonia and bilirubin. Hypothermia, hypotension Temperature has improved, maintained on inotropes. Monitor, managed by primary care team Questionable atrial fibrillation, the preliminary report on his EKG suggestive of atrial fibrillation, further evaluation of the EKG showed artifact with underlying sinus bradycardia. No atrial fibrillation was identified during this hospital stay Amiodarone was discontinued. Heart rate is stable Sinus bradycardia, maintained on Levophed. Carvedilol and Entresto has been on hold. Patient had multiple episode of bradycardia with complete heart block on July 08, 2023. Once mental status improve consideration for a pacemaker, preferably leadless pacemaker due to his underlying mental challenge Hypotension, carvedilol and Entresto and furosemide are on hold. Maintained on Levophed. Dilated cardiomyopathy, improved Had an echo in March 2023 with ejection fraction 40 to 45% with prominent right heart chambers and severe pulmonary hypertension with PA pressure 60 to 65 mmHg with moderate to severe tricuspid regurgitation Repeat 2D echo done on July 06, 2023 with ejection fraction 50 to 55%, dilated right heart chambers with severe pulmonary hypertension PA pressure 60 to 65%, moderate to severe tricuspid regurgitation Cannot tolerate beta-blockers, MILANA inhibitor and/or ARB at this time due to hypotension History of hepatitis C, possible hepatic cirrhosis, elevated bilirubin and ammonia Followed and managed by primary care team History of CVA occurred in 2017, 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 Cor pulmonale with severe pulmonary hypertension with emphysema noted on CT scan small pleural effusion History of schizophrenia History of illicit drug use including marijuana, cocaine, methamphetamine. Mild bilateral carotid stenosis, last ultrasound was done in February 2021 Electrolytes imbalance with hyponatremia, hypokalemia, managed by primary care team Questionable history of diabetes mellitus, patient is not receiving any treatment for diabetes, blood sugar is controlled. Managed by primary care team LILIAM KAMARA MD Jul 08, 2023 13:14
== END 2023-07-08 12:27 | disposition short-term general hospital (02) | DRG 922 ==
LOC: EDUNIT# 10:44 → ER 10:44 → ICU 13:22
PROVIDERS: ADMIT Internal Medicine; ATTEND Family Medicine
PROC: 5A1945Z Respiratory Ventilation, 24-96 Consecutive Hours (ICD-10-PCS; principal; 2023-07-06)
PROC: 0BH17EZ Insertion of Endotracheal Airway into Trachea, Via Natural or Artificial Opening (ICD-10-PCS; 2023-07-06)
DX: T68.XXXA Hypothermia, initial encounter (principal); J18.9 Pneumonia, unspecified organism; J96.00 Acute respiratory failure, unspecified whether with hypoxia or hypercapnia; N39.0 Urinary tract infection, site not specified; I42.0 Dilated cardiomyopathy; I44.2 Atrioventricular block, complete; N17.9 Acute kidney failure, unspecified; R18.8 Other ascites; B19.20 Unspecified viral hepatitis C without hepatic coma; F79 Unspecified intellectual disabilities; I95.9 Hypotension, unspecified; R00.1 Bradycardia, unspecified; B18.2 Chronic viral hepatitis C; D69.59 Other secondary thrombocytopenia; I48.91 Unspecified atrial fibrillation; I11.0 Hypertensive heart disease with heart failure; I50.9 Heart failure, unspecified; E86.0 Dehydration; I27.29 Other secondary pulmonary hypertension; E87.6 Hypokalemia; R41.0 Disorientation, unspecified; F17.210 Nicotine dependence, cigarettes, uncomplicated; J43.9 Emphysema, unspecified; E87.5 Hyperkalemia; K74.60 Unspecified cirrhosis of liver
CPT/HCPCS: 36415; 36569; 36600; 51702; 70450; 71045; 71260; 72125; 76937; 80053; 80306; 81000; 82140; 82550; 82805; 82947; 83605; 83735; 84100; 84439; 84443; 84478; 85025; 85027; 85610; 85730; 87040; 87070; 87077; 87088; 87186; 87205; 93005; 93306; 94002; 94003; 94799